=== PATIENT | male | born 1935 | race Native Hawaiian/Other Pacific Islander ===

== ENCOUNTER → 2016-08-15 | Outpatient (CLI) | payer MEDICARE, OTHER | END | disposition home or self-care (01) | LOC: RADPV 12:33 | PROVIDERS: ATTEND Family Medicine | DX: I70.0 Atherosclerosis of aorta (principal) | CPT/HCPCS: 71020 ==

== ENCOUNTER 2017-04-28 22:03 | Inpatient (IN) | payer MEDICARE, OTHER ==
[~2017-04-28] VITALS: Ht 162.6 cm; Wt 70.1 kg
[2017-04-28] MEDS ORDERED: SIMV-260 PO (22:29)
[2017-04-28] MEDS ORDERED: CETI-290 PO (22:29)
[2017-04-28] MEDS ORDERED: MONT10TA21 PO (22:29)
[2017-04-28] MEDS ORDERED: ALBU90AE NEB (22:29)
[2017-04-28] MEDS ORDERED: MELO-107 PO (22:29)
[2017-04-28] MEDS ORDERED: AMLO-511 PO (22:29)
[2017-04-28] MEDS ORDERED: FINA5TAB41 PO (22:29)
[2017-04-28] MEDS ORDERED: COLC0.6T67 PO (22:29)
[2017-04-28] MEDS ORDERED: CARV6 PO (22:29)
[2017-04-28] MEDS ORDERED: ALBUTEROL SULFATE 2.5 MG/0.5 ML NEB SOLUTION NEB ONE (22:45)
[2017-04-28] MEDS ORDERED: IPRATROPIUM BROMIDE 0.5 MG/2.5 ML NEB SOLUTION NEB ONE (22:45)
[2017-04-28 23:15] LABS: BASOPHILS # (AUTO) 0.06 K/uL (0.00-0.20); BASOPHILS % (AUTO) 0.9 % (0.0-2.0); EOSINOPHILS # (AUTO) 0.03 K/uL (0.00-0.70); EOSINOPHILS % (AUTO) 0.52 % (1.0-6.0); HEMATOCRIT 44.2 % (41-53); HEMOGLOBIN 14.6 g/dL (13.5-17.5); LYMPHOCYTES # (AUTO) 1.4 K/uL (1.0-4.8); LYMPHOCYTES % (AUTO) 23.8 % (22.0-44.0); MEAN CORPUSCULAR HEMOGLOBIN 29.7 pg (26.0-34.0); MEAN CORPUSCULAR HGB CONC 33.1 G/dL (31.0-37.0); MEAN CORPUSCULAR VOLUME 90 fL (80-100); MONOCYTES # (AUTO) 0.7 K/uL (0.1-1.0); NEUTROPHILS # (AUTO) 3.8 K/uL (1.8-7.7); NEUTROPHILS % (AUTO) 62.8 % (40.0-70.0); PLATELET COUNT (AUTO) 146 K/uL (150-450); RED BLOOD CELL COUNT(AUTO) 4.93 MIL/uL (4.50-5.90); RED CELL DISTRIBUTION WIDTH 14.4 % (11.5-14.5)
[2017-04-28 23:27] LABS: ANION GAP 8 mmol/L (8-16); CALCIUM, TOTAL 9.1 mg/dL (8.8-10.5); CARBON DIOXIDE 27 mmol/L (22-29); CHLORIDE 99 mmol/L (98-107); CREATININE 0.98 mg/dL (0.60-1.30); GLOMERULAR FILTR. RATE CALC > 60 mL/min (>60); POTASSIUM 5.4 mmol/L (3.5-5.1); SODIUM SERUM 134 mmol/L (136-145); UREA NITROGEN, BLOOD 22 mg/dL (7-18)
[2017-04-28 23:39] LABS: B-TYPE NATRIURETIC PEPTIDE 170 pg/mL (0-100)
[2017-04-28] MEDS ORDERED: BISACODYL 10 MG RECTAL RECTAL SUPPOSITORY PR PRN (23:45)
[2017-04-28] MEDS ORDERED: HYDROCODONE/ACETAMINOPHEN 5-325 MG TABLET PO PRN (23:45)
[2017-04-28] MEDS ORDERED: IPRATROPIUM BROMIDE 0.5 MG/2.5 ML NEB SOLUTION NEB PRN (23:45)
[2017-04-28] MEDS ORDERED: ACETAMINOPHEN 325 MG TABLET PO PRN (23:45)
[2017-04-28] MEDS ORDERED: MAGNESIUM HYDROXIDE SUSPENSION 30 ML UDCUP PO PRN (23:45)
[2017-04-28] MEDS ORDERED: ALBUTEROL SULFATE 2.5 MG/0.5 ML NEB SOLUTION NEB PRN (23:45)
[2017-04-28] MEDS ORDERED: ONDANSETRON HCL 4 MG/2 ML VIAL IVP PRN (23:45)
[2017-04-28] MEDS ORDERED: MORPHINE SULFATE 2 MG/ML SYRINGE IVP PRN (23:45)
[2017-04-28] MEDS ORDERED: ZOLPIDEM TARTRATE 5 MG TABLET PO PRN (23:45)
[2017-04-28 23:53] LABS: ALANINE AMINOTRANSFERASE 56 U/L (12-78); ALBUMIN 3.7 g/dL (3.4-5.0); ASPARTATE AMINOTRANSFERASE 60 U/L (15-37); BILIRUBIN,TOTAL 0.9 mg/dL (0.1-1.0); CREATINE KINASE MB 2.2 ng/mL (0-5); CREATINE KINASE, TOTAL 355 U/L (39-308); TOTAL PROTEIN, SERUM 8.1 g/dL (6.4-8.2)
[2017-04-29] VITALS (7 sets, daily range): BP systolic 109–141; BP diastolic 58–83
[2017-04-29] MEDS ORDERED: ALBUTEROL SULFATE 5 MG/ML 20 ML NEB SOLN [BULK] NEB ONE
[2017-04-29] MEDS ORDERED: SODIUM POLYSTYRENE SULFONATE 15 GM/60 ML SUSPENSION BOTTLE PO ONE
[2017-04-29] MEDS ORDERED: IPRATROPIUM BROMIDE 0.5 MG/2.5 ML NEB SOLUTION NEB ONE
[2017-04-29] MEDS ORDERED: 0.9% SODIUM CHLORIDE 5 ML NEB SOLUTION NEB ONE (00:04)
[2017-04-29] MEDS: IPRATROPIUM BROMIDE 0.5 MG/2.5 ML NEB SOLUTION NEB SCH ×4 (00:10→19:50)
[2017-04-29] MEDS: ALBUTEROL SULFATE 2.5 MG/0.5 ML NEB SOLUTION NEB SCH ×4 (00:10→19:50)
[2017-04-29] MEDS: CefTRIAXone 1 GM/DEXTROSE 50 ML IV SCH ×2 (00:14→23:48)
[2017-04-29] MEDS: MethylPREDNISolone SOD SUCC 125 MG/2 ML VIAL IVP SCH ×5 (00:14→23:49)
[2017-04-29] MEDS: HEPARIN SODIUM,PORCINE 5,000 UNITS/ML VIAL SQ SCH ×4 (00:15→23:49)
[2017-04-29 00:50] LABS: GLUCOSE, URINE (UA) NEGATIVE (NEGATIVE); KETONES,URINE NEGATIVE (NEGATIVE); LEUKOCYTE ESTERASE ,URINE NEGATIVE (NEGATIVE); OCCULT BLOOD,URINE MODERATE (NEGATIVE); PH,URINE 5.5 (5.0-8.0); PROTEIN,URINE POS 1+ (NEGATIVE)
[2017-04-29 00:52] LABS: INFLUENZA TYPE B NEGATIVE FOR TYPE B (NEGATIVE)
[2017-04-29 00:55] LABS: APPEARANCE,URINE HAZY (CLEAR)
[2017-04-29 00:56] LABS: WBC,URINE 0-2 /HPF (0-5)
[2017-04-29] MEDS ORDERED: SODIUM CHLORIDE 0.9% 250 ML IV ONE (01:34)
[2017-04-29] MEDS: AZITHROMYCIN 500 MG/NS 250 ML IV SCH (01:46)
[2017-04-29 06:24] LABS: BASOPHILS % (AUTO) 0.2 % (0.0-2.0); EOSINOPHILS % (AUTO) 0 % (1.0-6.0); HEMATOCRIT 44.7 % (41-53); HEMOGLOBIN 15.1 g/dL (13.5-17.5); LYMPHOCYTES # (AUTO) 1.6 K/uL (1.0-4.8); LYMPHOCYTES % (AUTO) 16.6 % (22.0-44.0); MEAN CORPUSCULAR HEMOGLOBIN 30.3 pg (26.0-34.0); MEAN CORPUSCULAR HGB CONC 33.8 G/dL (31.0-37.0); MEAN CORPUSCULAR VOLUME 89 fL (80-100); MONOCYTES # (AUTO) 0.2 K/uL (0.1-1.0); MONOCYTES % (AUTO) 2.2 % (2.0-9.0); NEUTROPHILS # (AUTO) 7.7 K/uL (1.8-7.7); PLATELET COUNT (AUTO) 153 K/uL (150-450); RED CELL DISTRIBUTION WIDTH 14.5 % (11.5-14.5); WHITE BLOOD COUNT (AUTO) 9.5 K/uL (4.5-11.0)
[2017-04-29 06:52] LABS: ANION GAP 10 mmol/L (8-16); CALCIUM, TOTAL 8.9 mg/dL (8.8-10.5); CARBON DIOXIDE 26 mmol/L (22-29); CHLORIDE 99 mmol/L (98-107); CREATININE 1.04 mg/dL (0.60-1.30); GLOMERULAR FILTR. RATE CALC > 60 mL/min (>60); POTASSIUM 3.8 mmol/L (3.5-5.1); SODIUM SERUM 135 mmol/L (136-145); UREA NITROGEN, BLOOD 18 mg/dL (7-18)
[2017-04-29] MEDS ORDERED: MELOXICAM 7.5 MG TABLET PO SCH (08:00)
[2017-04-29] MEDS: DOCUSATE SODIUM 100 MG CAPSULE PO SCH ×2 (08:28→21:05)
[2017-04-29] MEDS: OXYGEN THERAPY IH SCH ×2 (08:28→19:50)
[2017-04-29] MEDS: PANTOPRAZOLE SODIUM 40 MG DR TABLET PO SCH (08:28)
[2017-04-29] MEDS: BENZONATATE 100 MG CAPSULE PO SCH ×3 (08:29→21:04)
[2017-04-29] MEDS: GuaiFENesin SR 600 MG ER TABLET PO SCH ×2 (08:29→21:03)
[2017-04-29] MEDS ORDERED: CARVEDILOL 6.25 MG TABLET PO SCH (09:00)
[2017-04-29] MEDS ORDERED: COLCHICINE 0.6 MG TABLET PO SCH (09:00)
[2017-04-29] MEDS ORDERED: AmLODIPine BESYLATE 5 MG TABLET PO SCH (09:00)
[2017-04-29] MEDS ORDERED: CETIRIZINE HCL 10 MG TABLET PO SCH (09:00)
[2017-04-29] MEDS ORDERED: FINASTERIDE 5 MG TABLET PO SCH (09:00)
[2017-04-29] MEDS ORDERED: MONTELUKAST SODIUM 10 MG TABLET PO SCH (09:00)
[2017-04-29] MEDS ORDERED: SIMVASTATIN 20 MG TABLET PO SCH (09:00)
[2017-04-29 11:15] LABS: ABG A-A DIFF O2 119.2 mmHg (10-20.0); ABG BASE EXCESS -4.6 mmol/L (-2.0-3.0); ABG HCO3 21.4 mmol/L (22.0-26.0); ABG OXYHEMOGLOBIN 93.7 % (94.0-100.0); ABG PCO2 33 mmHg (35-45); ABG PH 7.402 (7.35-7.450); ALLEN TEST, BLOOD GAS POSITIVE; TEMPERATURE, FAHRENHEIT, BG 98.6 FAHREN (96.0-98.6)
[2017-04-29] MEDS: BUDESONIDE 0.5 MG/2 ML NEB SOLUTION NEB SCH ×2 (11:23→19:50)
[2017-04-29] MEDS: GuaiFENesin/D-METHORPHAN [SUGAR-FREE] 200-20MG/10 ML SYRUP UDCUP PO PRN ×2 (16:36→23:44)
[2017-04-29] MEDS: MONTELUKAST SODIUM 10 MG TABLET PO SCH (21:04)
[2017-04-29] MEDS: SIMVASTATIN 20 MG TABLET PO SCH (21:04)
[2017-04-29] MEDS: MELOXICAM 7.5 MG TABLET PO SCH (21:04)
[2017-04-29] MEDS: FINASTERIDE 5 MG TABLET PO SCH (21:05)
[2017-04-29] MEDS: CETIRIZINE HCL 10 MG TABLET PO SCH (21:05)
[2017-04-29] MEDS: CARVEDILOL 6.25 MG TABLET PO SCH (21:13)
[2017-04-29] MEDS: COLCHICINE 0.6 MG TABLET PO SCH (21:13)
[2017-04-29] MEDS: AmLODIPine BESYLATE 5 MG TABLET PO SCH (23:44)
[2017-04-30 00:07] LABS: GLUCOSE,POINT OF CARE 341 MG/DL (70-110)
[2017-04-30] MEDS: AZITHROMYCIN 500 MG/NS 250 ML IV SCH (01:46)
[2017-04-30] MEDS: ALBUTEROL SULFATE 2.5 MG/0.5 ML NEB SOLUTION NEB SCH ×4 (02:34→20:14)
[2017-04-30] MEDS: IPRATROPIUM BROMIDE 0.5 MG/2.5 ML NEB SOLUTION NEB SCH ×4 (02:34→20:14)
[2017-04-30 04:04] VITALS: BP_SYST 106; BP_SYST 6; BP_DIAS 68
[2017-04-30] MEDS: MethylPREDNISolone SOD SUCC 125 MG/2 ML VIAL IVP SCH ×2 (06:02→12:42)
[2017-04-30 07:12] LABS: BASOPHILS % (AUTO) 0.2 % (0.0-2.0); EOSINOPHILS % (AUTO) 0.1 % (1.0-6.0); HEMATOCRIT 41.5 % (41-53); LYMPHOCYTES # (AUTO) 2.5 K/uL (1.0-4.8); LYMPHOCYTES % (AUTO) 15.7 % (22.0-44.0); MEAN CORPUSCULAR HEMOGLOBIN 30.1 pg (26.0-34.0); MEAN CORPUSCULAR HGB CONC 33.7 G/dL (31.0-37.0); MEAN CORPUSCULAR VOLUME 89 fL (80-100); MONOCYTES # (AUTO) 0.5 K/uL (0.1-1.0); MONOCYTES % (AUTO) 3.4 % (2.0-9.0); NEUTROPHILS # (AUTO) 12.7 K/uL (1.8-7.7); NEUTROPHILS % (AUTO) 80.6 % (40.0-70.0); PLATELET COUNT (AUTO) 152 K/uL (150-450); RED BLOOD CELL COUNT(AUTO) 4.64 MIL/uL (4.50-5.90); RED CELL DISTRIBUTION WIDTH 14.1 % (11.5-14.5); WHITE BLOOD COUNT (AUTO) 15.8 K/uL (4.5-11.0)
[2017-04-30 07:45] VITALS: BP 128/74
[2017-04-30 08:05] LABS: ANION GAP 12 mmol/L (8-16); CALCIUM, TOTAL 8.9 mg/dL (8.8-10.5); CARBON DIOXIDE 25 mmol/L (22-29); CHLORIDE 95 mmol/L (98-107); CREATININE 0.98 mg/dL (0.60-1.30); GLOMERULAR FILTR. RATE CALC > 60 mL/min (>60); POTASSIUM 3.7 mmol/L (3.5-5.1); SODIUM SERUM 132 mmol/L (136-145); UREA NITROGEN, BLOOD 24 mg/dL (7-18)
[2017-04-30] MEDS: HEPARIN SODIUM,PORCINE 5,000 UNITS/ML VIAL SQ SCH ×2 (09:14→15:52)
[2017-04-30] MEDS: BENZONATATE 100 MG CAPSULE PO SCH ×3 (09:16→21:27)
[2017-04-30] MEDS: GuaiFENesin SR 600 MG ER TABLET PO SCH ×2 (09:16→21:20)
[2017-04-30] MEDS: PANTOPRAZOLE SODIUM 40 MG DR TABLET PO SCH (09:16)
[2017-04-30] MEDS: DOCUSATE SODIUM 100 MG CAPSULE PO SCH ×2 (09:16→21:20)
[2017-04-30] MEDS: GuaiFENesin/D-METHORPHAN [SUGAR-FREE] 200-20MG/10 ML SYRUP UDCUP PO PRN (09:17)
[2017-04-30] MEDS: OXYGEN THERAPY IH SCH ×2 (09:18→21:20)
[2017-04-30] MEDS: BUDESONIDE 0.5 MG/2 ML NEB SOLUTION NEB SCH ×2 (09:26→20:17)
[2017-04-30 11:59] VITALS: BP 127/79
[2017-04-30] MEDS ORDERED: AUD NEB (15:42)
[2017-04-30 16:08] VITALS: BP 126/77
[2017-04-30] MEDS: MethylPREDNISolone SOD SUCC 40 MG/ML VIAL IVP SCH (17:51)
[2017-04-30 19:30] VITALS: BP 134/99
[2017-04-30] MEDS: MONTELUKAST SODIUM 10 MG TABLET PO SCH (21:20)
[2017-04-30] MEDS: CARVEDILOL 6.25 MG TABLET PO SCH (21:20)
[2017-04-30] MEDS: AmLODIPine BESYLATE 5 MG TABLET PO SCH (21:20)
[2017-04-30] MEDS: FINASTERIDE 5 MG TABLET PO SCH (21:20)
[2017-04-30] MEDS: CETIRIZINE HCL 10 MG TABLET PO SCH (21:20)
[2017-04-30] MEDS: COLCHICINE 0.6 MG TABLET PO SCH (21:20)
[2017-04-30] MEDS: SIMVASTATIN 20 MG TABLET PO SCH (21:20)
[2017-04-30] MEDS: MELOXICAM 7.5 MG TABLET PO SCH (21:20)
[2017-04-30 23:36] VITALS: BP 148/88
[2017-05-01] MEDS: MethylPREDNISolone SOD SUCC 40 MG/ML VIAL IVP SCH ×4 (00:05→19:16)
[2017-05-01] MEDS: HEPARIN SODIUM,PORCINE 5,000 UNITS/ML VIAL SQ SCH ×3 (00:05→17:05)
[2017-05-01] MEDS: CefTRIAXone 1 GM/DEXTROSE 50 ML IV SCH (00:05)
[2017-05-01] MEDS: IPRATROPIUM BROMIDE 0.5 MG/2.5 ML NEB SOLUTION NEB SCH ×4 (02:00→22:37)
[2017-05-01] MEDS: ALBUTEROL SULFATE 2.5 MG/0.5 ML NEB SOLUTION NEB SCH ×4 (02:00→22:37)
[2017-05-01] MEDS: AZITHROMYCIN 500 MG/NS 250 ML IV SCH (02:05)
[2017-05-01] MEDS: GuaiFENesin/D-METHORPHAN [SUGAR-FREE] 200-20MG/10 ML SYRUP UDCUP PO PRN (02:05)
[2017-05-01 05:34] VITALS: BP 137/79
[2017-05-01 07:17] VITALS: BP 128/76
[2017-05-01 07:28] LABS: BASOPHILS # (AUTO) 0.02 K/uL (0.00-0.20); BASOPHILS % (AUTO) 0.1 % (0.0-2.0); EOSINOPHILS % (AUTO) 0 % (1.0-6.0); HEMATOCRIT 42.8 % (41-53); HEMOGLOBIN 14.2 g/dL (13.5-17.5); LYMPHOCYTES # (AUTO) 1.4 K/uL (1.0-4.8); LYMPHOCYTES % (AUTO) 8.5 % (22.0-44.0); MEAN CORPUSCULAR HEMOGLOBIN 29.7 pg (26.0-34.0); MEAN CORPUSCULAR HGB CONC 33.2 G/dL (31.0-37.0); MEAN CORPUSCULAR VOLUME 89 fL (80-100); MONOCYTES # (AUTO) 0.7 K/uL (0.1-1.0); MONOCYTES % (AUTO) 4.1 % (2.0-9.0); NEUTROPHILS # (AUTO) 14.3 K/uL (1.8-7.7); PLATELET COUNT (AUTO) 166 K/uL (150-450); RED BLOOD CELL COUNT(AUTO) 4.79 MIL/uL (4.50-5.90); WHITE BLOOD COUNT (AUTO) 16.4 K/uL (4.5-11.0)
[2017-05-01 07:29] LABS: NEUTROPHILS % (AUTO) 87.3 % (40.0-70.0); RBC MORPHOLOGY COMMENT NORMAL RBC MORPH
[2017-05-01 07:48] LABS: ANION GAP 10 mmol/L (8-16); CALCIUM, TOTAL 8.8 mg/dL (8.8-10.5); CARBON DIOXIDE 26 mmol/L (22-29); CHLORIDE 93 mmol/L (98-107); CREATININE 0.83 mg/dL (0.60-1.30); GLOMERULAR FILTR. RATE CALC > 60 mL/min (>60); POTASSIUM 4.1 mmol/L (3.5-5.1); SODIUM SERUM 129 mmol/L (136-145); UREA NITROGEN, BLOOD 19 mg/dL (7-18)
[2017-05-01] MEDS: BUDESONIDE 0.5 MG/2 ML NEB SOLUTION NEB SCH ×2 (08:46→22:37)
[2017-05-01] MEDS: PANTOPRAZOLE SODIUM 40 MG DR TABLET PO SCH (09:10)
[2017-05-01] MEDS: DOCUSATE SODIUM 100 MG CAPSULE PO SCH ×2 (09:10→20:39)
[2017-05-01] MEDS: GuaiFENesin SR 600 MG ER TABLET PO SCH ×2 (09:11→20:39)
[2017-05-01] MEDS: OXYGEN THERAPY IH SCH ×2 (09:11→20:39)
[2017-05-01] MEDS: BENZONATATE 100 MG CAPSULE PO SCH ×3 (09:11→20:39)
[2017-05-01 11:59] VITALS: BP 128/71
[2017-05-01] MEDS: HYDROCODONE/CHLORPHEN POLIS 10-8 MG/5 ML ORAL.SYG PO PRN (13:07)
[2017-05-01 16:35] VITALS: BP 124/76
[2017-05-01 19:44] VITALS: BP 148/95
[2017-05-01] MEDS: COLCHICINE 0.6 MG TABLET PO SCH (20:38)
[2017-05-01] MEDS: MELOXICAM 7.5 MG TABLET PO SCH (20:38)
[2017-05-01] MEDS: MONTELUKAST SODIUM 10 MG TABLET PO SCH (20:38)
[2017-05-01] MEDS: AmLODIPine BESYLATE 5 MG TABLET PO SCH (20:39)
[2017-05-01] MEDS: CETIRIZINE HCL 10 MG TABLET PO SCH (20:39)
[2017-05-01] MEDS: FINASTERIDE 5 MG TABLET PO SCH (20:39)
[2017-05-01] MEDS: SIMVASTATIN 20 MG TABLET PO SCH (20:39)
[2017-05-01] MEDS: CARVEDILOL 6.25 MG TABLET PO SCH (20:39)
[2017-05-02] MEDS: CefTRIAXone 1 GM/DEXTROSE 50 ML IV SCH (00:14)
[2017-05-02] MEDS: HEPARIN SODIUM,PORCINE 5,000 UNITS/ML VIAL SQ SCH ×2 (00:14→08:31)
[2017-05-02] MEDS: MethylPREDNISolone SOD SUCC 40 MG/ML VIAL IVP SCH ×3 (00:15→12:18)
[2017-05-02 00:35] VITALS: BP 149/98
[2017-05-02] MEDS: AZITHROMYCIN 500 MG/NS 250 ML IV SCH (01:53)
[2017-05-02] MEDS: ALBUTEROL SULFATE 2.5 MG/0.5 ML NEB SOLUTION NEB SCH ×3 (02:34→13:56)
[2017-05-02] MEDS: IPRATROPIUM BROMIDE 0.5 MG/2.5 ML NEB SOLUTION NEB SCH ×3 (02:34→13:56)
[2017-05-02 04:49] VITALS: BP 157/85
[2017-05-02 06:47] LABS: HEMATOCRIT 46.2 % (41-53); HEMOGLOBIN 15.2 g/dL (13.5-17.5); MEAN CORPUSCULAR HEMOGLOBIN 29.6 pg (26.0-34.0); MEAN CORPUSCULAR VOLUME 90 fL (80-100); PLATELET COUNT (AUTO) 188 K/uL (150-450); RED BLOOD CELL COUNT(AUTO) 5.14 MIL/uL (4.50-5.90); RED CELL DISTRIBUTION WIDTH 14.4 % (11.5-14.5); WHITE BLOOD COUNT (AUTO) 12.6 K/uL (4.5-11.0)
[2017-05-02 07:23] LABS: ANION GAP 9 mmol/L (8-16); CALCIUM, TOTAL 8.7 mg/dL (8.8-10.5); CARBON DIOXIDE 29 mmol/L (22-29); CHLORIDE 96 mmol/L (98-107); CREATININE 1.07 mg/dL (0.60-1.30); GLOMERULAR FILTR. RATE CALC > 60 mL/min (>60); POTASSIUM 4.1 mmol/L (3.5-5.1); SODIUM SERUM 134 mmol/L (136-145); UREA NITROGEN, BLOOD 19 mg/dL (7-18)
[2017-05-02] MEDS: BUDESONIDE 0.5 MG/2 ML NEB SOLUTION NEB SCH (07:59)
[2017-05-02 08:08] VITALS: BP 146/82
[2017-05-02] MEDS: HYDROCODONE/CHLORPHEN POLIS 10-8 MG/5 ML ORAL.SYG PO PRN ×2 (08:31→16:21)
[2017-05-02] MEDS: BENZONATATE 100 MG CAPSULE PO SCH ×2 (08:31→16:21)
[2017-05-02] MEDS: OXYGEN THERAPY IH SCH (08:31)
[2017-05-02] MEDS: PANTOPRAZOLE SODIUM 40 MG DR TABLET PO SCH (08:31)
[2017-05-02] MEDS: GuaiFENesin SR 600 MG ER TABLET PO SCH (08:31)
[2017-05-02] MEDS: DOCUSATE SODIUM 100 MG CAPSULE PO SCH (08:31)
[2017-05-02 08:58] LABS: BAND NEUTROPHILS % (MANUAL) 15 % (1-5); LYMPHOCYTES % (MANUAL) 12 % (22-44); TOTAL CELLS COUNTED 100
[2017-05-02 08:59] LABS: RBC MORPHOLOGY COMMENT NORMAL RBC MORPH
[2017-05-02 11:45] VITALS: BP 142/80
[2017-05-02] MEDS ORDERED: BENZ-51 PO (14:16)
[2017-05-02] MEDS ORDERED: PRED10 PO (14:18)
[2017-05-02] MEDS ORDERED: PRED20 PO (14:18)
[2017-05-02] MEDS ORDERED: PANT40TA25 PO (14:19)
[2017-05-02] MEDS ORDERED: PRED5 PO (14:19)
[2017-05-02] MEDS ORDERED: TUSSI5L PO (14:21)
[2017-05-02] MEDS ORDERED: LEVO750T21 PO (16:03)
== END 2017-05-02 16:45 | disposition home or self-care (01) | DRG 189 ==
LOC: EMS 22:06 → 5N 23:45
PROVIDERS: ADMIT Internal Medicine; ATTEND Internal Medicine
DX: J96.20 Acute and chronic respiratory failure, unspecified whether with hypoxia or hypercapnia (principal); J18.9 Pneumonia, unspecified organism; J44.0 Chronic obstructive pulmonary disease with (acute) lower respiratory infection; E87.5 Hyperkalemia; I11.0 Hypertensive heart disease with heart failure; J45.901 Unspecified asthma with (acute) exacerbation; I50.9 Heart failure, unspecified; E87.1 Hypo-osmolality and hyponatremia; J44.1 Chronic obstructive pulmonary disease with (acute) exacerbation; E03.9 Hypothyroidism, unspecified; E87.6 Hypokalemia; N40.0 Benign prostatic hyperplasia without lower urinary tract symptoms; E78.5 Hyperlipidemia, unspecified; M10.9 Gout, unspecified; Z88.8 Allergy status to other drugs, medicaments and biological substances; Z82.49 Family history of ischemic heart disease and other diseases of the circulatory system; Z87.891 Personal history of nicotine dependence
CPT/HCPCS: 71250; 82805; 82962; 87040; 87804; 93005; 94640; 94644; 99285; J0456; J0696; J1644; J2920; J2930; J7050

== ENCOUNTER 2017-07-07 10:15 | Inpatient (IN) | payer MEDICARE, OTHER ==
[~2017-07-07] VITALS: Ht 162.6 cm; Wt 69.8 kg
[~2017-07-07 10:15] MED LIST: AMLO-511 PO; AUD NEB; BENZ-51 PO; CARV6 PO; CETI-290 PO; COLC0.6T67 PO; FINA5TAB41 PO; LEVO750T21 PO; MELO-107 PO; MONT10TA21 PO; PANT40TA25 PO; PRED10 PO; PRED20 PO; PRED5 PO; SIMV-260 PO; TUSSI5L PO
[2017-07-07 11:04] LABS: BASOPHILS % (AUTO) 0.8 % (0.0-2.0); EOSINOPHILS % (AUTO) 4.7 % (1.0-6.0); HEMATOCRIT 44.2 % (41-53); HEMOGLOBIN 14.9 g/dL (13.5-17.5); LYMPHOCYTES % (AUTO) 17.2 % (22.0-44.0); MEAN CORPUSCULAR HEMOGLOBIN 30.1 pg (26.0-34.0); MEAN CORPUSCULAR HGB CONC 33.7 G/dL (31.0-37.0); MEAN CORPUSCULAR VOLUME 89 fL (80-100); MONOCYTES # (AUTO) 0.8 K/uL (0.1-1.0); NEUTROPHILS # (AUTO) 8.2 K/uL (1.8-7.7); NEUTROPHILS % (AUTO) 70.3 % (40.0-70.0); PLATELET COUNT (AUTO) 237 K/uL (150-450); RED BLOOD CELL COUNT(AUTO) 4.94 MIL/uL (4.50-5.90); RED CELL DISTRIBUTION WIDTH 14.6 % (11.5-14.5)
[2017-07-07 11:15] LABS: PROTHROMBIN TIME 10.7 SEC (9.4-11.6)
[2017-07-07 11:17] LABS: ANION GAP 10 mmol/L (8-16); CALCIUM, TOTAL 9.6 mg/dL (8.8-10.5); CARBON DIOXIDE 30 mmol/L (22-29); CHLORIDE 104 mmol/L (98-107); CREATININE 0.91 mg/dL (0.60-1.30); GLOMERULAR FILTR. RATE CALC > 60 mL/min (>60); GLUCOSE,RANDOM 148 mg/dL (70-110); POTASSIUM 4.2 mmol/L (3.5-5.1); SODIUM SERUM 144 mmol/L (136-145); UREA NITROGEN, BLOOD 13 mg/dL (7-18)
[2017-07-07 11:22] LABS: B-TYPE NATRIURETIC PEPTIDE 39 pg/mL (0-100)
[2017-07-07 11:24] LABS: ALANINE AMINOTRANSFERASE 46 U/L (12-78); ALBUMIN 3.8 g/dL (3.4-5.0); ALKALINE PHOSPHATASE 83 U/L (46-116); ASPARTATE AMINOTRANSFERASE 25 U/L (15-37); BILIRUBIN,TOTAL 0.8 mg/dL (0.1-1.0); TOTAL PROTEIN, SERUM 7.5 g/dL (6.4-8.2); URIC ACID 8.4 mg/dL (2.6-7.2)
[2017-07-07] MEDS ORDERED: IPRATROPIUM BROMIDE 0.5 MG/2.5 ML NEB SOLUTION NEB ONE (13:06)
[2017-07-07] MEDS ORDERED: ALBUTEROL SULFATE 2.5 MG/0.5 ML NEB SOLUTION NEB PRN (13:45)
[2017-07-07] MEDS ORDERED: MAGNESIUM HYDROXIDE SUSPENSION 30 ML UDCUP PO PRN (13:45)
[2017-07-07] MEDS ORDERED: ACETAMINOPHEN 325 MG TABLET PO PRN (13:45)
[2017-07-07] MEDS ORDERED: IPRATROPIUM BROMIDE 0.5 MG/2.5 ML NEB SOLUTION NEB PRN (13:45)
[2017-07-07 14:33] VITALS: BP 122/93
[2017-07-07] MEDS: ASPIRIN 81 MG CHEWABLE TABLET PO SCH (15:12)
[2017-07-07] MEDS: INDOMETHACIN 25 MG CAPSULE PO PRN (15:12)
[2017-07-07] MEDS: HEPARIN SODIUM,PORCINE 5,000 UNITS/ML VIAL SQ SCH ×2 (15:25→23:23)
[2017-07-07 19:23] VITALS: BP 148/73
[2017-07-07] MEDS: COLCHICINE 0.6 MG TABLET PO SCH (20:14)
[2017-07-07] MEDS: ATORVASTATIN CALCIUM 20 MG TABLET PO SCH (20:14)
[2017-07-07] MEDS: DOCUSATE SODIUM 100 MG CAPSULE PO SCH (20:14)
[2017-07-07 23:24] VITALS: BP 108/65
[2017-07-08 00:39] LABS: APPEARANCE,URINE CLEAR (CLEAR); BILIRUBIN,URINE NEGATIVE (NEGATIVE); GLUCOSE, URINE (UA) 250 mg/dL (NEGATIVE); KETONES,URINE NEGATIVE (NEGATIVE); LEUKOCYTE ESTERASE ,URINE NEGATIVE (NEGATIVE); NITRATE,URINE NEGATIVE (NEGATIVE); OCCULT BLOOD,URINE NEGATIVE (NEGATIVE); PH,URINE 5.5 (5.0-8.0); PROTEIN,URINE NEGATIVE (NEGATIVE); UROBILINOGEN,URINE 0.2 mg/dL (<=1.0)
[2017-07-08 00:53] LABS: BACTERIA,URINE Few /HPF (None Seen); MUCUS,URINE Few LPF (None Seen); RBC,URINE 0-2 /HPF (0-2); SQUAMOUS EPITHELIAL CELL,UR Rare /LPF (None Seen); WBC,URINE 0-2 /HPF (0-5)
[2017-07-08 04:47] VITALS: BP 137/91
[2017-07-08 07:33] VITALS: BP 134/78
[2017-07-08] MEDS: DOCUSATE SODIUM 100 MG CAPSULE PO SCH ×2 (09:00→20:49)
[2017-07-08] MEDS: HEPARIN SODIUM,PORCINE 5,000 UNITS/ML VIAL SQ SCH ×3 (09:06→23:00)
[2017-07-08] MEDS: ASPIRIN 81 MG CHEWABLE TABLET PO SCH (09:07)
[2017-07-08] MEDS: INDOMETHACIN 25 MG CAPSULE PO PRN ×2 (09:07→19:48)
[2017-07-08] MEDS ORDERED: ALBUTEROL SULFATE 2.5 MG/0.5 ML NEB SOLUTION NEB PRN (09:30)
[2017-07-08] MEDS: IPRATROPIUM BROMIDE 0.5 MG/2.5 ML NEB SOLUTION NEB SCH ×4 (09:32→22:47)
[2017-07-08 10:58] VITALS: BP 121/73
[2017-07-08] MEDS ORDERED: IPRATROPIUM BROMIDE 0.5 MG/2.5 ML NEB SOLUTION NEB SCH (11:00)
[2017-07-08] MEDS: ALBUTEROL SULFATE 2.5 MG/0.5 ML NEB SOLUTION NEB SCH ×4 (11:00→22:47)
[2017-07-08 15:26] VITALS: BP 115/64
[2017-07-08 19:43] VITALS: BP 148/62
[2017-07-08] MEDS: ATORVASTATIN CALCIUM 20 MG TABLET PO SCH (20:47)
[2017-07-08] MEDS: COLCHICINE 0.6 MG TABLET PO SCH (20:47)
[2017-07-08 23:37] VITALS: BP 140/77
[2017-07-09] MEDS: IPRATROPIUM BROMIDE 0.5 MG/2.5 ML NEB SOLUTION NEB SCH ×3 (03:00→11:00)
[2017-07-09] MEDS: ALBUTEROL SULFATE 2.5 MG/0.5 ML NEB SOLUTION NEB SCH ×3 (03:00→11:00)
[2017-07-09 05:36] VITALS: BP 125/69
[2017-07-09 06:43] LABS: BASOPHILS % (AUTO) 0.6 % (0.0-2.0); EOSINOPHILS % (AUTO) 3.7 % (1.0-6.0); HEMATOCRIT 41.2 % (41-53); HEMOGLOBIN 14.1 g/dL (13.5-17.5); LYMPHOCYTES # (AUTO) 2.1 K/uL (1.0-4.8); MEAN CORPUSCULAR HEMOGLOBIN 30.2 pg (26.0-34.0); MEAN CORPUSCULAR HGB CONC 34.2 G/dL (31.0-37.0); MEAN CORPUSCULAR VOLUME 89 fL (80-100); MONOCYTES % (AUTO) 9.7 % (2.0-9.0); NEUTROPHILS # (AUTO) 7.1 K/uL (1.8-7.7); PLATELET COUNT (AUTO) 221 K/uL (150-450); RED BLOOD CELL COUNT(AUTO) 4.65 MIL/uL (4.50-5.90); RED CELL DISTRIBUTION WIDTH 14.2 % (11.5-14.5)
[2017-07-09 07:17] LABS: ANION GAP 8 mmol/L (8-16); CARBON DIOXIDE 28 mmol/L (22-29); CHLORIDE 100 mmol/L (98-107); CREATININE 0.79 mg/dL (0.60-1.30); GLOMERULAR FILTR. RATE CALC > 60 mL/min (>60); GLUCOSE,RANDOM 109 mg/dL (70-110); POTASSIUM 3.7 mmol/L (3.5-5.1); SODIUM SERUM 136 mmol/L (136-145); UREA NITROGEN, BLOOD 16 mg/dL (7-18)
[2017-07-09 07:46] VITALS: BP 97/73
[2017-07-09] MEDS: HEPARIN SODIUM,PORCINE 5,000 UNITS/ML VIAL SQ SCH (08:07)
[2017-07-09] MEDS: DOCUSATE SODIUM 100 MG CAPSULE PO SCH ×2 (08:07→08:08)
[2017-07-09] MEDS: ASPIRIN 81 MG CHEWABLE TABLET PO SCH (08:07)
[2017-07-09] MEDS: INDOMETHACIN 25 MG CAPSULE PO PRN (08:07)
[2017-07-09 11:33] VITALS: BP 128/64
== END 2017-07-09 14:00 | disposition home or self-care (01) | DRG 69 ==
LOC: EMS 10:20 → 5N 12:20
PROVIDERS: ADMIT Internal Medicine; ATTEND Internal Medicine
DX: G45.9 Transient cerebral ischemic attack, unspecified (principal); G93.40 Encephalopathy, unspecified; J44.9 Chronic obstructive pulmonary disease, unspecified; I11.0 Hypertensive heart disease with heart failure; I50.9 Heart failure, unspecified; E78.00 Pure hypercholesterolemia, unspecified; I25.10 Atherosclerotic heart disease of native coronary artery without angina pectoris; R53.81 Other malaise; M10.9 Gout, unspecified; N40.0 Benign prostatic hyperplasia without lower urinary tract symptoms; Z88.8 Allergy status to other drugs, medicaments and biological substances; Z79.899 Other long term (current) drug therapy
CPT/HCPCS: 70450; 84550; 93005; 93306; 93880; 94640; 97161; 99285; J1644

== ENCOUNTER → 2017-08-11 | Outpatient (CLI) | payer MEDICARE, OTHER ==
[~2017-08-11] VITALS: Ht 160 cm; Wt 69.0 kg
[~2017-08-11] MED LIST changes: -BENZ-51 PO; -LEVO750T21 PO; -PANT40TA25 PO; -PRED10 PO; -PRED20 PO; -PRED5 PO; -TUSSI5L PO
[2017-08-11 10:15] VITALS: BP 106/68
== END | disposition home or self-care (01) ==
LOC: SRCNTR 10:11
PROVIDERS: ATTEND Internal Medicine Cardiovascular Disease
DX: I10 Essential (primary) hypertension (principal); I45.10 Unspecified right bundle-branch block; E78.5 Hyperlipidemia, unspecified; J44.9 Chronic obstructive pulmonary disease, unspecified; Z86.73 Personal history of transient ischemic attack (TIA), and cerebral infarction without residual deficits
CPT/HCPCS: 93005; G0463

== ENCOUNTER → 2018-01-12 | Outpatient (CLI) | payer MEDICARE, OTHER | END | disposition home or self-care (01) | LOC: RADPV 12:44 | PROVIDERS: ATTEND Family Medicine | DX: J44.9 Chronic obstructive pulmonary disease, unspecified (principal); E78.00 Pure hypercholesterolemia, unspecified; I10 Essential (primary) hypertension ==

== ENCOUNTER → 2018-03-30 | Outpatient (CLI) | payer MEDICARE, OTHER ==
[~2018-03-30] VITALS: Ht 160 cm; Wt 73.0 kg
[2018-03-30 11:51] VITALS: BP 129/62
== END | disposition home or self-care (01) ==
LOC: SRCNTR 11:23
PROVIDERS: ATTEND Internal Medicine Cardiovascular Disease
DX: J44.9 Chronic obstructive pulmonary disease, unspecified (principal); E78.5 Hyperlipidemia, unspecified; I10 Essential (primary) hypertension; Z86.73 Personal history of transient ischemic attack (TIA), and cerebral infarction without residual deficits
CPT/HCPCS: G0463

== ENCOUNTER → 2018-06-27 | Outpatient (CLI) | payer MEDICARE, OTHER ==
[~2018-06-27] VITALS: Ht 160 cm; Wt 71.0 kg
[~2018-06-27] MED LIST changes: +CETI-170 PO; -CETI-290 PO
[2018-06-27 11:42] VITALS: BP 148/76
== END | disposition home or self-care (01) ==
LOC: SRCNTR 10:54
PROVIDERS: ATTEND Internal Medicine Cardiovascular Disease
DX: E78.5 Hyperlipidemia, unspecified (principal); I10 Essential (primary) hypertension; J44.9 Chronic obstructive pulmonary disease, unspecified
CPT/HCPCS: G0463

== ENCOUNTER → 2018-08-22 | Outpatient (CLI) | payer MEDICARE, OTHER ==
[~2018-08-22] VITALS: Ht 160 cm; Wt 71.5 kg
[~2018-08-22] MED LIST changes: -CETI-170 PO; +CETI10TA59 PO; +GABA-531 PO
[2018-08-22 11:00] VITALS: BP 110/65
== END | disposition home or self-care (01) ==
LOC: SRCNTR 10:50
PROVIDERS: ATTEND Internal Medicine Cardiovascular Disease
DX: E78.5 Hyperlipidemia, unspecified (principal); M19.90 Unspecified osteoarthritis, unspecified site; I10 Essential (primary) hypertension; J44.9 Chronic obstructive pulmonary disease, unspecified; I42.9 Cardiomyopathy, unspecified
CPT/HCPCS: G0463

== ENCOUNTER 2019-04-08 13:22 | Emergency (ER) | payer MEDICARE, OTHER ==
[~2019-04-08] VITALS: Ht 162.6 cm; Wt 69.3 kg
[~2019-04-08 13:22] MED LIST changes: -AMLO-511 PO; +AMLO5TAB9 PO; -COLC0.6T67 PO; +COLC0.6T73 PO
[2019-04-08 15:18] LABS: BASOPHILS % (AUTO) 0.6 % (0.0-2.0); EOSINOPHILS % (AUTO) 0.9 % (1.0-6.0); HEMATOCRIT 43.7 % (41-53); HEMOGLOBIN 14.4 g/dL (13.5-17.5); LYMPHOCYTES # (AUTO) 1.6 K/uL (1.0-4.8); LYMPHOCYTES % (AUTO) 14.9 % (22.0-44.0); MEAN CORPUSCULAR HEMOGLOBIN 29.5 pg (26.0-34.0); MEAN CORPUSCULAR VOLUME 89 fL (80-100); MONOCYTES # (AUTO) 1.2 K/uL (0.1-1.0); MONOCYTES % (AUTO) 10.6 % (2.0-9.0); NEUTROPHILS # (AUTO) 7.9 K/uL (1.8-7.7); PLATELET COUNT (AUTO) 428 K/uL (150-450); RED BLOOD CELL COUNT(AUTO) 4.89 MIL/uL (4.50-5.90); RED CELL DISTRIBUTION WIDTH 14.1 % (11.5-14.5)
[2019-04-08 15:40] LABS: ANION GAP 9 mmol/L (8-16); CALCIUM, TOTAL 9.2 mg/dL (8.8-10.5); CARBON DIOXIDE 29 mmol/L (22-29); CHLORIDE 98 mmol/L (98-107); CREATININE 0.88 mg/dL (0.60-1.30); GLUCOSE,RANDOM 172 mg/dL (70-110); SODIUM SERUM 136 mmol/L (136-145); UREA NITROGEN, BLOOD 14 mg/dL (7-18)
[2019-04-08 15:41] LABS: GLOMERULAR FILTR. RATE CALC > 60 mL/min (>60)
[2019-04-08 15:51] LABS: ALANINE AMINOTRANSFERASE 96 U/L (12-78); ALBUMIN 2.9 g/dL (3.4-5.0); ALKALINE PHOSPHATASE 141 U/L (46-116); ASPARTATE AMINOTRANSFERASE 40 U/L (15-37); BILIRUBIN,TOTAL 0.6 mg/dL (0.1-1.0); C-REACTIVE PROTEIN QUANT 7.62 mg/dL (0.00-0.30); TOTAL PROTEIN, SERUM 7.5 g/dL (6.4-8.2)
[2019-04-08 16:18] LABS: URIC ACID 5.8 mg/dL (2.6-7.2)
[2019-04-08] MEDS ORDERED: ONDANSETRON HCL 4 MG/2 ML VIAL IVP ONE (17:30)
[2019-04-08] MEDS ORDERED: MORPHINE SULFATE 4 MG/ML SYRINGE IVP ONE (17:30)
[2019-04-08] MEDS ORDERED: DEXAMETHASONE SOD PHOS 4 MG/ML 5 ML VIAL IVP ONE (17:30)
[2019-04-08 17:51] LABS: APPEARANCE,URINE CLEAR (CLEAR); BILIRUBIN,URINE NEGATIVE (NEGATIVE); GLUCOSE, URINE (UA) 500 mg/dL (NEGATIVE); KETONES,URINE NEGATIVE (NEGATIVE); LEUKOCYTE ESTERASE ,URINE NEGATIVE (NEGATIVE); NITRATE,URINE NEGATIVE (NEGATIVE); OCCULT BLOOD,URINE NEGATIVE (NEGATIVE); PH,URINE 5.5 (5.0-8.0); PROTEIN,URINE TRACE (NEGATIVE)
[2019-04-08 18:28] LABS: BACTERIA,URINE None Seen /HPF (None Seen); RBC,URINE None Seen /HPF (0-2); SQUAMOUS EPITHELIAL CELL,UR None Seen /LPF (None Seen); WBC,URINE 0-2 /HPF (0-5)
[2019-04-08] MEDS ORDERED: CeFAZolin 1 GM/DEXTROSE 50 ML IV ONE (19:15)
[2019-04-08 20:26] VITALS: BP 122/81
== END 2019-04-08 20:46 | disposition home or self-care (01) ==
LOC: EMS 13:22
DX: M10.9 Gout, unspecified (principal); M79.602 Pain in left arm; M79.89 Other specified soft tissue disorders; I11.0 Hypertensive heart disease with heart failure; I50.9 Heart failure, unspecified; J45.909 Unspecified asthma, uncomplicated; E78.00 Pure hypercholesterolemia, unspecified; F17.210 Nicotine dependence, cigarettes, uncomplicated; Z88.8 Allergy status to other drugs, medicaments and biological substances
CPT/HCPCS: 36415; 71045; 80053; 81001; 84550; 85025; 86140; 96365; 96375; 99284; J0690; J1100; J2270; J2405

== ENCOUNTER 2019-08-06 12:19 | Emergency (ER) | payer MEDICARE, OTHER ==
[~2019-08-06] VITALS: Ht 165.1 cm; Wt 64.5 kg
[~2019-08-06 12:19] MED LIST changes: +FINA-27 PO; -FINA5TAB41 PO
[2019-08-06] MEDS ORDERED: PERTUSS(ACELL),DIPH,TET VAC/PF 0.5 ML VIAL IM ONE (14:30)
[2019-08-06 15:14] LABS: BASOPHILS % (AUTO) 1.4 % (0.0-2.0); EOSINOPHILS % (AUTO) 1.4 % (1.0-6.0); HEMOGLOBIN 15.5 g/dL (13.5-17.5); LYMPHOCYTES # (AUTO) 2.6 K/uL (1.0-4.8); LYMPHOCYTES % (AUTO) 30.6 % (22.0-44.0); MEAN CORPUSCULAR HEMOGLOBIN 29.7 pg (26.0-34.0); MEAN CORPUSCULAR VOLUME 90 fL (80-100); MONOCYTES # (AUTO) 0.6 K/uL (0.1-1.0); MONOCYTES % (AUTO) 6.7 % (2.0-9.0); NEUTROPHILS # (AUTO) 5.1 K/uL (1.8-7.7); NEUTROPHILS % (AUTO) 59.9 % (40.0-70.0); PLATELET COUNT (AUTO) 294 K/uL (150-450); RED CELL DISTRIBUTION WIDTH 15.4 % (11.5-14.5)
[2019-08-06 15:31] LABS: APPEARANCE,URINE CLEAR (CLEAR); BILIRUBIN,URINE NEGATIVE (NEGATIVE); GLUCOSE, URINE (UA) NEGATIVE (NEGATIVE); KETONES,URINE NEGATIVE (NEGATIVE); LEUKOCYTE ESTERASE ,URINE NEGATIVE (NEGATIVE); NITRATE,URINE NEGATIVE (NEGATIVE); OCCULT BLOOD,URINE NEGATIVE (NEGATIVE); PH,URINE 7.5 (5.0-8.0); PROTEIN,URINE NEGATIVE (NEGATIVE); UROBILINOGEN,URINE 0.2 mg/dL (<=1.0)
[2019-08-06 15:31] LABS: ANION GAP 6 mmol/L (8-16); CALCIUM, TOTAL 10.1 mg/dL (8.8-10.5); CARBON DIOXIDE 33 mmol/L (22-29); CHLORIDE 101 mmol/L (98-107); GLUCOSE,RANDOM 111 mg/dL (70-110); POTASSIUM 4.2 mmol/L (3.5-5.1); SODIUM SERUM 140 mmol/L (136-145); UREA NITROGEN, BLOOD 11 mg/dL (7-18)
[2019-08-06 15:32] LABS: GLOMERULAR FILTR. RATE CALC > 60 mL/min (>60)
[2019-08-06 15:39] LABS: ALANINE AMINOTRANSFERASE 53 U/L (12-78); ALBUMIN 4.3 g/dL (3.4-5.0); ALKALINE PHOSPHATASE 91 U/L (46-116); ASPARTATE AMINOTRANSFERASE 34 U/L (15-37); BILIRUBIN,TOTAL 0.5 mg/dL (0.1-1.0); THYROID STIMULATING HORMONE 1.62 uIU/mL (0.36-3.74); TOTAL PROTEIN, SERUM 8.4 g/dL (6.4-8.2)
[2019-08-06 15:42] LABS: BACTERIA,URINE None Seen /HPF (None Seen); RBC,URINE None Seen /HPF (0-2); SQUAMOUS EPITHELIAL CELL,UR Rare /LPF (None Seen); WBC,URINE None Seen /HPF (0-5)
[2019-08-06 16:00] VITALS: BP 130/74
[2019-08-06] MEDS ORDERED: LIDOCAINE 1%/EPI 1:200,000/PF 10 ML VIAL INJ ONE (16:15)
== END 2019-08-06 16:56 | disposition home or self-care (01) ==
LOC: EMS 12:20
DX: S01.01XA Laceration without foreign body of scalp, initial encounter (principal); I11.0 Hypertensive heart disease with heart failure; I50.9 Heart failure, unspecified; J45.909 Unspecified asthma, uncomplicated; E78.00 Pure hypercholesterolemia, unspecified; F17.210 Nicotine dependence, cigarettes, uncomplicated; Z88.8 Allergy status to other drugs, medicaments and biological substances; W45.8XXA Other foreign body or object entering through skin, initial encounter; Y93.89 Activity, other specified; Y92.89 Other specified places as the place of occurrence of the external cause; Y99.8 Other external cause status
CPT/HCPCS: 12002; 36415; 70450; 80053; 81001; 84443; 84484; 85025; 90471; 90715; 93005; 99285; J3490

== ENCOUNTER → 2019-08-16 | Outpatient (CLI) | payer MEDICARE, OTHER ==
[~2019-08-16] VITALS: Ht 160 cm; Wt 67.0 kg
[2019-08-16 10:59] VITALS: BP 142/77
== END | disposition home or self-care (01) ==
LOC: SRCNTR 08:40
PROVIDERS: ATTEND Internal Medicine Cardiovascular Disease
DX: J44.9 Chronic obstructive pulmonary disease, unspecified (principal); I10 Essential (primary) hypertension; I42.9 Cardiomyopathy, unspecified; E78.5 Hyperlipidemia, unspecified
CPT/HCPCS: G0463

== ENCOUNTER → 2020-01-23 | Outpatient (CLI) | payer MEDICARE, OTHER ==
[~2020-01-23] MED LIST changes: +AMLO-257 PO; -AMLO5TAB9 PO; +CETI-450 PO; -CETI10TA59 PO; +GABA-1181 PO; -GABA-531 PO
== END | disposition home or self-care (01) ==
LOC: SRCNTR 15:20
PROVIDERS: ATTEND Internal Medicine Cardiovascular Disease
DX: I10 Essential (primary) hypertension (principal); J44.9 Chronic obstructive pulmonary disease, unspecified; E78.5 Hyperlipidemia, unspecified; M19.90 Unspecified osteoarthritis, unspecified site; Z79.899 Other long term (current) drug therapy; Z88.8 Allergy status to other drugs, medicaments and biological substances
CPT/HCPCS: Q3014

== ENCOUNTER → 2020-07-15 | Outpatient (CLI) | payer MEDICARE, OTHER ==
[~2020-07-15] MED LIST changes: +MONT-35 PO; -MONT10TA21 PO
== END | disposition home or self-care (01) ==
LOC: SRCNTR 11:22
PROVIDERS: ATTEND Internal Medicine Cardiovascular Disease
DX: I10 Essential (primary) hypertension (principal); J44.9 Chronic obstructive pulmonary disease, unspecified; E78.5 Hyperlipidemia, unspecified; M19.90 Unspecified osteoarthritis, unspecified site; I42.1 Obstructive hypertrophic cardiomyopathy
CPT/HCPCS: Q3014

== ENCOUNTER → 2020-09-16 | Outpatient (CLI) | payer MEDICARE, OTHER ==
[~2020-09-16] VITALS: Ht 160 cm; Wt 68.6 kg
[2020-09-16 10:30] VITALS: BP 129/72
== END | disposition home or self-care (01) ==
LOC: SRCNTR 09:59
PROVIDERS: ATTEND Internal Medicine Cardiovascular Disease
DX: I10 Essential (primary) hypertension (principal); J44.9 Chronic obstructive pulmonary disease, unspecified; J45.909 Unspecified asthma, uncomplicated; E78.5 Hyperlipidemia, unspecified; M19.90 Unspecified osteoarthritis, unspecified site
CPT/HCPCS: G0463

== ENCOUNTER → 2020-10-16 | Outpatient (CLI) | payer MEDICARE, OTHER ==
[2020-10-16 12:15] LABS: BASOPHILS % (AUTO) 0.9 % (0.0-2.0); EOSINOPHILS % (AUTO) 4.9 % (1.0-6.0); HEMATOCRIT 46.4 % (41-53); HEMOGLOBIN 15.1 g/dL (13.5-17.5); LYMPHOCYTES # (AUTO) 2.5 K/uL (1.0-4.8); LYMPHOCYTES % (AUTO) 38.3 % (22.0-44.0); MEAN CORPUSCULAR HEMOGLOBIN 29.5 pg (26.0-34.0); MEAN CORPUSCULAR HGB CONC 32.6 G/dL (31.0-37.0); MEAN CORPUSCULAR VOLUME 91 fL (80-100); MONOCYTES # (AUTO) 0.5 K/uL (0.1-1.0); NEUTROPHILS # (AUTO) 3.1 K/uL (1.8-7.7); NEUTROPHILS % (AUTO) 47.9 % (40.0-70.0); PLATELET COUNT (AUTO) 256 K/uL (150-450); RED BLOOD CELL COUNT(AUTO) 5.13 MIL/uL (4.50-5.90); RED CELL DISTRIBUTION WIDTH 14.8 % (11.5-14.5)
[2020-10-16 12:29] LABS: HEMOGLOBIN A1C 7.6 % (3.8-5.6)
[2020-10-16 12:46] LABS: ALANINE AMINOTRANSFERASE 59 U/L (12-78); ALBUMIN 4.4 g/dL (3.4-5.0); ALKALINE PHOSPHATASE 79 U/L (46-116); ANION GAP 6 mmol/L (8-16); ASPARTATE AMINOTRANSFERASE 41 U/L (15-37); BILIRUBIN,TOTAL 0.7 mg/dL (0.1-1.0); CALCIUM, TOTAL 9.2 mg/dL (8.8-10.5); CARBON DIOXIDE 30 mmol/L (22-29); CHLORIDE 102 mmol/L (98-107); CHOL/HDL RATIO 2.8 (4.2-7.3); CHOLESTEROL 128 mg/dL (131-200); CREATININE 0.92 mg/dL (0.60-1.30); GLOMERULAR FILTR. RATE CALC > 60 mL/min (>60); GLUCOSE,RANDOM 133 mg/dL (70-110); HDL CHOLESTEROL 46 mg/dL (40-60); LDL CHOL (CALC.) 61 mg/dL (0-130); SODIUM SERUM 138 mmol/L (136-145); THYROID STIMULATING HORMONE 2.17 uIU/mL (0.36-3.74); TRIGLYCERIDES 104 mg/dL (15-150); UREA NITROGEN, BLOOD 12 mg/dL (7-18)
[2020-10-16 12:47] LABS: PROSTATE SPECIFIC ANTIGEN 2.45 ng/mL (0.00-4.00)
[2020-10-16 12:55] LABS: URIC ACID 7.6 mg/dL (2.6-7.2)
== END | disposition home or self-care (01) ==
LOC: LABPV 09:39
PROVIDERS: ATTEND Family Medicine
DX: I10 Essential (primary) hypertension (principal); E78.5 Hyperlipidemia, unspecified; E11.65 Type 2 diabetes mellitus with hyperglycemia; M19.90 Unspecified osteoarthritis, unspecified site; M10.9 Gout, unspecified; N40.0 Benign prostatic hyperplasia without lower urinary tract symptoms
CPT/HCPCS: 80053; 80061; 83036; 84153; 84443; 84550; 85025

== ENCOUNTER 2021-01-20 05:25 | Day surgery (SDC) | payer MEDICARE, OTHER ==
[2021-01-18 10:17] LABS: COVID AG,FIA SOURCE NASOPHARYNGEAL
[~2021-01-20] VITALS: Ht 162.6 cm; Wt 65.9 kg
[~2021-01-20 05:25] MED LIST changes: -CETI-450 PO; +CETI10TA58 PO; +EZET10TA13 PO; +FURO20TA4 PO; +KETOROLAC TROMETHAMINE 0.5% 5 ML OPHTHALMIC SOLUTION ONE; -MONT-35 PO; +MONT10TA32 PO; +MOXIFLOXACIN HCL 0.5% 3 ML OPHTHALMIC SOLUTION ONE; +PHENYLEPHRINE HCL 2.5% 2 ML OPHTHALMIC SOLUTION ONE; +SODIUM CHLORIDE 0.9% 500 ML IV ONE; +TROPICAMIDE 1% 2 ML OPHTHALMIC SOLUTION ONE
[2021-01-20] MEDS ORDERED: LIDOCAINE/PF 1% 2 ML VIAL CAUDAL ONE (05:26)
[2021-01-20] MEDS ORDERED: FentaNYL CITRATE PF 100 MCG/2 ML VIAL IVP ONE (05:26)
[2021-01-20] MEDS ORDERED: MIDAZOLAM HCL 2 MG/2 ML VIAL IVP ONE (05:26)
[2021-01-20] MEDS ORDERED: TETRACAINE HCL/PF 0.5% 4 ML OPHTHALMIC SOLUTION OD ONE (05:26)
[2021-01-20] MEDS ORDERED: BALANCED SALT 15 ML OPHTHALMIC IRRIG.SOLN IO ONE (05:26)
[2021-01-20] MEDS ORDERED: POVIDONE-IODINE 10% 15 ML SOLUTION UD TP ONE (05:26)
[2021-01-20] MEDS ORDERED: EPINEPHrine 1:1,000 [1 MG/ML] AMP ET ONE (05:26)
[2021-01-20] MEDS ORDERED: CHONDR SULF A SOD/HYALURONATE 1.05 ML KIT IO ONE (05:26)
[2021-01-20] MEDS ORDERED: RINGERS SOLUTION,LACTATED 500 ML IV ONE (06:00)
[2021-01-20] MEDS: TROPICAMIDE 1% 2 ML OPHTHALMIC SOLUTION OS SCH ×3 (06:11→06:24)
[2021-01-20] MEDS: KETOROLAC TROMETHAMINE 0.5% 5 ML OPHTHALMIC SOLUTION OS SCH ×3 (06:11→06:24)
[2021-01-20] MEDS: MOXIFLOXACIN HCL 0.5% 3 ML OPHTHALMIC SOLUTION OS SCH ×3 (06:11→06:25)
[2021-01-20] MEDS: PHENYLEPHRINE HCL 2.5% 2 ML OPHTHALMIC SOLUTION OS SCH ×3 (06:12→06:24)
== END 2021-01-20 08:40 | disposition home or self-care (01) ==
LOC: SURGERY 05:25
PROVIDERS: ATTEND Ophthalmology
DX: H25.12 Age-related nuclear cataract, left eye (principal); J45.909 Unspecified asthma, uncomplicated; E78.00 Pure hypercholesterolemia, unspecified; I10 Essential (primary) hypertension; M10.9 Gout, unspecified; Z20.822 Contact with and (suspected) exposure to COVID-19; Z79.899 Other long term (current) drug therapy; Z87.01 Personal history of pneumonia (recurrent); Z82.49 Family history of ischemic heart disease and other diseases of the circulatory system; Z83.511 Family history of glaucoma
CPT/HCPCS: 66984; 87426; 93005; A9575; C9803; J0171; J2250; J3010; J3490; J7040; V2632

== ENCOUNTER → 2021-01-22 | Outpatient (CLI) | payer MEDICARE, OTHER ==
[~2021-01-22] VITALS: Ht 160 cm; Wt 73.6 kg
[~2021-01-22] MED LIST changes: -KETOROLAC TROMETHAMINE 0.5% 5 ML OPHTHALMIC SOLUTION ONE; -MOXIFLOXACIN HCL 0.5% 3 ML OPHTHALMIC SOLUTION ONE; -PHENYLEPHRINE HCL 2.5% 2 ML OPHTHALMIC SOLUTION ONE; -SODIUM CHLORIDE 0.9% 500 ML IV ONE; -TROPICAMIDE 1% 2 ML OPHTHALMIC SOLUTION ONE
[2021-01-22 11:09] VITALS: BP 118/65
== END | disposition home or self-care (01) ==
LOC: SRCNTR 10:43
PROVIDERS: ATTEND Internal Medicine Cardiovascular Disease
DX: I10 Essential (primary) hypertension (principal); J44.9 Chronic obstructive pulmonary disease, unspecified; E78.5 Hyperlipidemia, unspecified; M19.90 Unspecified osteoarthritis, unspecified site
CPT/HCPCS: G0463

== ENCOUNTER 2021-03-10 06:09 | Day surgery (SDC) | payer MEDICARE, OTHER ==
[2021-03-08 10:56] LABS: COVID AG,FIA SOURCE NASOPHARYNGEAL
[~2021-03-10] VITALS: Ht 162.6 cm; Wt 66.8 kg
[~2021-03-10 06:09] MED LIST changes: +KETOROLAC TROMETHAMINE 0.5% 5 ML OPHTHALMIC SOLUTION ONE; +MONT-40 PO; -MONT10TA32 PO; +MOXIFLOXACIN HCL 0.5% 3 ML OPHTHALMIC SOLUTION ONE; +PHENYLEPHRINE HCL 2.5% 2 ML OPHTHALMIC SOLUTION ONE; +RINGERS SOLUTION,LACTATED 500 ML IV ONE; +TROPICAMIDE 1% 2 ML OPHTHALMIC SOLUTION ONE
[2021-03-10] MEDS ORDERED: POVIDONE-IODINE 10% 15 ML SOLUTION UD TP ONE (06:10)
[2021-03-10] MEDS ORDERED: BALANCED SALT 15 ML OPHTHALMIC IRRIG.SOLN OD ONE (06:10)
[2021-03-10] MEDS ORDERED: EPINEPHrine 1:1,000 [1 MG/ML] AMP IM ONE (06:10)
[2021-03-10] MEDS ORDERED: LIDOCAINE/PF 1% 2 ML VIAL IM ONE (06:10)
[2021-03-10] MEDS ORDERED: CHONDR SULF A SOD/HYALURONATE 1.05 ML KIT IO ONE (06:10)
[2021-03-10] MEDS ORDERED: TETRACAINE HCL/PF 0.5% 4 ML OPHTHALMIC SOLUTION OD ONE (06:10)
[2021-03-10] MEDS ORDERED: RINGERS SOLUTION,LACTATED 500 ML IV ONE (06:30)
[2021-03-10] MEDS: KETOROLAC TROMETHAMINE 0.5% 5 ML OPHTHALMIC SOLUTION OD SCH ×3 (06:47→06:58)
[2021-03-10] MEDS: TROPICAMIDE 1% 2 ML OPHTHALMIC SOLUTION OD SCH ×3 (06:47→06:58)
[2021-03-10] MEDS: MOXIFLOXACIN HCL 0.5% 3 ML OPHTHALMIC SOLUTION OD SCH ×3 (06:48→06:58)
[2021-03-10] MEDS: PHENYLEPHRINE HCL 2.5% 2 ML OPHTHALMIC SOLUTION OD SCH ×3 (06:48→06:58)
[2021-03-10] MEDS ORDERED: MIDAZOLAM HCL 2 MG/2 ML VIAL IVP ONE (12:00)
[2021-03-10] MEDS ORDERED: FentaNYL CITRATE PF 100 MCG/2 ML VIAL IVP ONE (12:00)
== END 2021-03-10 08:45 | disposition home or self-care (01) ==
LOC: SURGERY 06:09
PROVIDERS: ATTEND Ophthalmology
DX: H26.8 Other specified cataract (principal); J44.9 Chronic obstructive pulmonary disease, unspecified; I10 Essential (primary) hypertension; Z88.2 Allergy status to sulfonamides; Z88.8 Allergy status to other drugs, medicaments and biological substances; E78.5 Hyperlipidemia, unspecified; Z86.73 Personal history of transient ischemic attack (TIA), and cerebral infarction without residual deficits; Z79.899 Other long term (current) drug therapy; Z98.890 Other specified postprocedural states
CPT/HCPCS: 66984; 87426; 93005; C9803; J0171; J2250; J3010; J3490; J7120; Q9967; V2632

== ENCOUNTER → 2021-03-22 | Outpatient (CLI) | payer MEDICARE, OTHER ==
[~2021-03-22] VITALS: Ht 160 cm; Wt 69.3 kg
[~2021-03-22] MED LIST changes: +INFLUENZA VIRUS VACCINE QVS 2021-22 (6MO+)/PF 60 MCG/0.5 ML SYRINGE IM. ONE; -KETOROLAC TROMETHAMINE 0.5% 5 ML OPHTHALMIC SOLUTION ONE; -MONT-40 PO; +MONT10TA32 PO; -MOXIFLOXACIN HCL 0.5% 3 ML OPHTHALMIC SOLUTION ONE; -PHENYLEPHRINE HCL 2.5% 2 ML OPHTHALMIC SOLUTION ONE; -RINGERS SOLUTION,LACTATED 500 ML IV ONE; -TROPICAMIDE 1% 2 ML OPHTHALMIC SOLUTION ONE
[2021-03-22 10:26] VITALS: BP 111/64
== END | disposition home or self-care (01) ==
LOC: SRCNTR 10:00
PROVIDERS: ATTEND Internal Medicine Cardiovascular Disease
DX: Z23 Encounter for immunization (principal); J44.9 Chronic obstructive pulmonary disease, unspecified; I10 Essential (primary) hypertension; E78.5 Hyperlipidemia, unspecified; M19.90 Unspecified osteoarthritis, unspecified site; E78.00 Pure hypercholesterolemia, unspecified; Z20.822 Contact with and (suspected) exposure to COVID-19; Z87.01 Personal history of pneumonia (recurrent); Z79.899 Other long term (current) drug therapy
CPT/HCPCS: 90471; 90686; G0463

== ENCOUNTER → 2021-04-14 | Outpatient (CLI) | payer MEDICARE, OTHER ==
[~2021-04-14] MED LIST changes: -INFLUENZA VIRUS VACCINE QVS 2021-22 (6MO+)/PF 60 MCG/0.5 ML SYRINGE IM. ONE; +MONT-40 PO; -MONT10TA32 PO
== END | disposition home or self-care (01) ==
LOC: RADPV 08:36
PROVIDERS: ATTEND Internal Medicine Cardiovascular Disease
DX: I08.3 Combined rheumatic disorders of mitral, aortic and tricuspid valves (principal)
CPT/HCPCS: 93306

== ENCOUNTER → 2021-09-06 | Outpatient (CLI) | payer MEDICARE, OTHER ==
[~2021-09-06] VITALS: Ht 160 cm; Wt 68.5 kg
[2021-09-06 10:19] VITALS: BP 123/67
== END | disposition home or self-care (01) ==
LOC: SRCNTR 09:46
PROVIDERS: ATTEND Internal Medicine Cardiovascular Disease
DX: I10 Essential (primary) hypertension (principal); E78.5 Hyperlipidemia, unspecified; J44.9 Chronic obstructive pulmonary disease, unspecified; M19.90 Unspecified osteoarthritis, unspecified site; Z79.899 Other long term (current) drug therapy; Z88.8 Allergy status to other drugs, medicaments and biological substances
CPT/HCPCS: G0463; Z7500

== ENCOUNTER → 2021-10-19 | Outpatient (CLI) | payer MEDICARE, OTHER ==
[~2021-10-19] MED LIST changes: -CARV6 PO; -FURO20TA4 PO
== END | disposition home or self-care (01) ==
LOC: RADPV 09:20
PROVIDERS: ATTEND Internal Medicine Cardiovascular Disease
DX: I08.1 Rheumatic disorders of both mitral and tricuspid valves (principal)
CPT/HCPCS: 93306

== ENCOUNTER 2021-12-29 16:19 | Inpatient (IN) | payer MEDICARE, OTHER ==
[~2021-12-29] VITALS: Ht 170.2 cm; Wt 69.2 kg
[~2021-12-29 16:19] MED LIST changes: -MELO-107 PO; +MELO-381 PO
[2021-12-29] MEDS ORDERED: 0.9% SODIUM CHLORIDE 10 ML SYRINGE IVP PRN (16:30)
[2021-12-29] MEDS ORDERED: SODIUM CHLORIDE 0.9% 2,300 ML IV ONE (16:30)
[2021-12-29] MEDS ORDERED: CefTRIAXone 1 GM/DEXTROSE 50 ML IV ONE (16:30)
[2021-12-29 16:57] LABS: BASOPHILS % (AUTO) 0.4 % (0.0-2.0); EOSINOPHILS % (AUTO) 0 % (1.0-6.0); HEMATOCRIT 43.8 % (41-53); HEMOGLOBIN 14.5 g/dL (13.5-17.5); LYMPHOCYTES # (AUTO) 1.5 K/uL (1.0-4.8); MEAN CORPUSCULAR HEMOGLOBIN 29.7 pg (26.0-34.0); MEAN CORPUSCULAR VOLUME 90 fL (80-100); MONOCYTES % (AUTO) 7.8 % (2.0-9.0); NEUTROPHILS % (AUTO) 79.8 % (40.0-70.0); PLATELET COUNT (AUTO) 215 K/uL (150-450); RED BLOOD CELL COUNT(AUTO) 4.88 MIL/uL (4.50-5.90); RED CELL DISTRIBUTION WIDTH 14.7 % (11.5-14.5)
[2021-12-29 17:07] LABS: ANION GAP 13 mmol/L (8-16); CARBON DIOXIDE 26 mmol/L (22-29); CHLORIDE 100 mmol/L (98-107); CREATININE 1.14 mg/dL (0.60-1.30); GLOMERULAR FILTR. RATE CALC > 60 mL/min (>60); GLUCOSE,RANDOM 223 mg/dL (70-110); POTASSIUM 4.2 mmol/L (3.5-5.1); SODIUM SERUM 139 mmol/L (136-145); UREA NITROGEN, BLOOD 13 mg/dL (7-18)
[2021-12-29 17:08] LABS: INR 1.1 (0.9-1.1); PROTHROMBIN TIME 11.7 SEC (9.4-11.6)
[2021-12-29 17:13] LABS: ALANINE AMINOTRANSFERASE 41 U/L (12-78); ALBUMIN 3.3 g/dL (3.4-5.0); ALKALINE PHOSPHATASE 82 U/L (46-116); ASPARTATE AMINOTRANSFERASE 31 U/L (15-37); BILIRUBIN,TOTAL 1.2 mg/dL (0.1-1.0); TOTAL PROTEIN, SERUM 7.7 g/dL (6.4-8.2)
[2021-12-29] MEDS ORDERED: ACETAMINOPHEN 500 MG TABLET PO ONE (17:15)
[2021-12-29 17:17] LABS: LACTIC ACID 2.5 mmol/L (0.4-2.0)
[2021-12-29 17:58] LABS: COVID AG,FIA SOURCE NASAL SWAB
[2021-12-29] MEDS ORDERED: ALBUTEROL SULFATE 2.5 MG/0.5 ML NEB SOLUTION NEB PRN (18:00)
[2021-12-29] MEDS ORDERED: IPRATROPIUM BROMIDE 0.5 MG/2.5 ML NEB SOLUTION NEB PRN (18:00)
[2021-12-29] MEDS ORDERED: MAGNESIUM HYDROXIDE SUSPENSION 30 ML UDCUP PO PRN (18:00)
[2021-12-29] MEDS ORDERED: DEXTROSE 50%-WATER 25 GM/50 ML SYRINGE IVP PRN (18:00)
[2021-12-29] MEDS ORDERED: SODIUM CHLORIDE 0.9% 1,000 ML IV ONE (18:00)
[2021-12-29] MEDS ORDERED: ONDANSETRON HCL 4 MG/2 ML VIAL IVP PRN (18:00)
[2021-12-29] MEDS: AZITHROMYCIN 500 MG/NS 250 ML IV SCH (18:37)
[2021-12-29 18:43] LABS: APPEARANCE,URINE CLEAR (CLEAR); BILIRUBIN,URINE NEGATIVE (NEGATIVE); GLUCOSE, URINE (UA) 300-500 mg/dL (NEGATIVE); KETONES,URINE 40-60 mg/dL (NEGATIVE); LEUKOCYTE ESTERASE ,URINE NEGATIVE (NEGATIVE); NITRATE,URINE NEGATIVE (NEGATIVE); OCCULT BLOOD,URINE LARGE (NEGATIVE); PROTEIN,URINE 30-70 mg/dL (NEGATIVE); SPECIFIC GRAVITIY, URINE 1.018 (1.003-1.030); UROBILINOGEN,URINE <=1.0 mg/dL (<=1.0)
[2021-12-29 18:53] LABS: INFLUENZA TYPE A NEGATIVE FOR TYPE A (NEGATIVE); INFLUENZA TYPE B NEGATIVE FOR TYPE B (NEGATIVE)
[2021-12-29 19:01] LABS: RBC,URINE 51-100 /HPF (0-2)
[2021-12-29 19:02] LABS: BACTERIA,URINE None Seen /HPF (None Seen)
[2021-12-29] MEDS ORDERED: PredniSONE 20 MG TABLET PO ONE (20:15)
[2021-12-29 21:08] VITALS: BP 130/70
[2021-12-29] MEDS: DOCUSATE SODIUM 100 MG CAPSULE PO SCH (21:17)
[2021-12-29] MEDS: INSULIN LISPRO 100 UNITS/ML SQ PRN (21:31)
[2021-12-29 23:44] VITALS: BP 134/85
[2021-12-30] MEDS: HEPARIN SODIUM,PORCINE 5,000 UNITS/ML VIAL SQ SCH ×3 (02:55→16:10)
[2021-12-30 04:01] VITALS: BP 129/88
[2021-12-30] MEDS: INSULIN LISPRO 100 UNITS/ML SQ PRN ×4 (06:29→21:56)
[2021-12-30 07:23] VITALS: BP 128/78
[2021-12-30] MEDS: FAMOTIDINE 20 MG TABLET PO SCH (09:00)
[2021-12-30] MEDS: DOCUSATE SODIUM 100 MG CAPSULE PO SCH ×2 (09:00→20:10)
[2021-12-30] MEDS ORDERED: INDOMETHACIN 25 MG CAPSULE PO PRN (09:45)
[2021-12-30 11:21] LABS: GLUCOMETER DEV NAME(LOC) 5N.1C; GLUCOSE,POINT OF CARE 218 MG/DL (70-110)
[2021-12-30 11:21] LABS: GLUCOMETER DEV NAME(LOC) 5N.1C; GLUCOSE,POINT OF CARE 208 MG/DL (70-110)
[2021-12-30 11:31] VITALS: BP 132/83
[2021-12-30 12:12] LABS: GLUCOMETER DEV NAME(LOC) 5S.1B; GLUCOSE,POINT OF CARE 181 MG/DL (70-110)
[2021-12-30 15:54] VITALS: BP 130/76
[2021-12-30] MEDS: CefTRIAXone 1 GM/DEXTROSE 50 ML IV SCH (16:10)
[2021-12-30] MEDS ORDERED: SODIUM CHLORIDE 0.9% 500 ML IV ONE (16:15)
[2021-12-30] MEDS: AZITHROMYCIN 500 MG/NS 250 ML IV SCH (17:54)
[2021-12-30 20:25] VITALS: BP 159/70
[2021-12-31] VITALS (8 sets, daily range): BP systolic 133–171; BP diastolic 72–92
[2021-12-31] MEDS: HEPARIN SODIUM,PORCINE 5,000 UNITS/ML VIAL SQ SCH ×3 (00:11→15:37)
[2021-12-31 03:51] LABS: GLUCOMETER DEV NAME(LOC) 5S.1B; GLUCOSE,POINT OF CARE 186 MG/DL (70-110)
[2021-12-31 03:51] LABS: GLUCOMETER DEV NAME(LOC) 5S.1B; GLUCOSE,POINT OF CARE 174 MG/DL (70-110)
[2021-12-31 06:37] LABS: BASOPHILS % (AUTO) 0.2 % (0.0-2.0); EOSINOPHILS % (AUTO) 0.1 % (1.0-6.0); HEMATOCRIT 42.1 % (41-53); HEMOGLOBIN 14.3 g/dL (13.5-17.5); LYMPHOCYTES # (AUTO) 1.3 K/uL (1.0-4.8); LYMPHOCYTES % (AUTO) 9.6 % (22.0-44.0); MEAN CORPUSCULAR HEMOGLOBIN 30.3 pg (26.0-34.0); MEAN CORPUSCULAR HGB CONC 33.9 G/dL (31.0-37.0); MEAN CORPUSCULAR VOLUME 90 fL (80-100); MONOCYTES # (AUTO) 1.1 K/uL (0.1-1.0); MONOCYTES % (AUTO) 7.9 % (2.0-9.0); NEUTROPHILS % (AUTO) 82.2 % (40.0-70.0); PLATELET COUNT (AUTO) 251 K/uL (150-450); RED CELL DISTRIBUTION WIDTH 14.4 % (11.5-14.5)
[2021-12-31 06:44] LABS: ANION GAP 9 mmol/L (8-16); CALCIUM, TOTAL 8.9 mg/dL (8.8-10.5); CARBON DIOXIDE 24 mmol/L (22-29); CHLORIDE 103 mmol/L (98-107); CREATININE 0.65 mg/dL (0.60-1.30); GLUCOSE,RANDOM 155 mg/dL (70-110); POTASSIUM 4.2 mmol/L (3.5-5.1); SODIUM SERUM 136 mmol/L (136-145); UREA NITROGEN, BLOOD 17 mg/dL (7-18)
[2021-12-31 06:49] LABS: GLOMERULAR FILTR. RATE CALC > 60 mL/min (>60)
[2021-12-31] MEDS: FAMOTIDINE 20 MG TABLET PO SCH (08:32)
[2021-12-31] MEDS: DOCUSATE SODIUM 100 MG CAPSULE PO SCH ×2 (08:32→20:40)
[2021-12-31 12:31] LABS: GLUCOMETER DEV NAME(LOC) 5S.1B; GLUCOSE,POINT OF CARE 214 MG/DL (70-110)
[2021-12-31] MEDS: INSULIN LISPRO 100 UNITS/ML SQ PRN ×3 (12:38→20:41)
[2021-12-31] MEDS ORDERED: ASPIRIN 81 MG CHEWABLE TABLET PO ONE (13:45)
[2021-12-31] MEDS: ATORVASTATIN CALCIUM 40 MG TABLET PO SCH (13:58)
[2021-12-31] MEDS: CefTRIAXone 1 GM/DEXTROSE 50 ML IV SCH (15:36)
[2021-12-31] MEDS: AZITHROMYCIN 500 MG/NS 250 ML IV SCH (17:37)
[2021-12-31 18:36] LABS: GLUCOMETER DEV NAME(LOC) 5S.1B; GLUCOSE,POINT OF CARE 298 MG/DL (70-110)
[2021-12-31 22:06] LABS: GLUCOMETER DEV NAME(LOC) 5S.1B; GLUCOSE,POINT OF CARE 273 MG/DL (70-110)
[2022-01-01] MEDS: HEPARIN SODIUM,PORCINE 5,000 UNITS/ML VIAL SQ SCH (00:35)
[2022-01-01] MEDS: INSULIN LISPRO 100 UNITS/ML SQ PRN ×5 (01:13→21:12)
[2022-01-01] MEDS ORDERED: METOPROLOL TARTRATE 5 MG/5 ML VIAL IVP ONE (01:15)
[2022-01-01 03:55] VITALS: BP 142/76
[2022-01-01 05:51] LABS: GLUCOMETER DEV NAME(LOC) 5S.1B; GLUCOSE,POINT OF CARE 214 MG/DL (70-110)
[2022-01-01] MEDS ORDERED: ATORVASTATIN CALCIUM 40 MG TABLET PO ONE (06:00)
[2022-01-01] MEDS ORDERED: HEPARIN SODIUM 25000 UNITS/D5W 250 ML IV PRN (06:00)
[2022-01-01] MEDS ORDERED: HEPARIN SODIUM,PORCINE 5,000 UNITS/ML VIAL IVP PRN ×2 (06:00)
[2022-01-01] MEDS ORDERED: ASPIRIN 300 MG RECTAL SUPPOSITORY PR ONE (06:15)
[2022-01-01] MEDS ORDERED: IOHEXOL 350 MG/ML 100 ML VIAL ONE (06:17)
[2022-01-01] MEDS ORDERED: SODIUM CHLORIDE 0.9% 100 ML ONE (06:17)
[2022-01-01 06:42] VITALS: BP 125/79
[2022-01-01 07:05] LABS: BASOPHILS % (AUTO) 0.2 % (0.0-2.0); EOSINOPHILS % (AUTO) 0 % (1.0-6.0); HEMATOCRIT 41.5 % (41-53); HEMOGLOBIN 13.9 g/dL (13.5-17.5); LYMPHOCYTES # (AUTO) 2.2 K/uL (1.0-4.8); LYMPHOCYTES % (AUTO) 13.6 % (22.0-44.0); MEAN CORPUSCULAR HEMOGLOBIN 29.9 pg (26.0-34.0); MEAN CORPUSCULAR HGB CONC 33.4 G/dL (31.0-37.0); MEAN CORPUSCULAR VOLUME 89 fL (80-100); MONOCYTES # (AUTO) 1.7 K/uL (0.1-1.0); MONOCYTES % (AUTO) 10.5 % (2.0-9.0); NEUTROPHILS # (AUTO) 12.5 K/uL (1.8-7.7); NEUTROPHILS % (AUTO) 75.7 % (40.0-70.0); PLATELET COUNT (AUTO) 239 K/uL (150-450); RED BLOOD CELL COUNT(AUTO) 4.64 MIL/uL (4.50-5.90); RED CELL DISTRIBUTION WIDTH 14.3 % (11.5-14.5)
[2022-01-01 07:19] LABS: INR 1.1 (0.9-1.1); PROTHROMBIN TIME 11.4 SEC (9.4-11.6)
[2022-01-01 07:21] LABS: ALANINE AMINOTRANSFERASE 50 U/L (12-78); ALBUMIN 2.6 g/dL (3.4-5.0); ALKALINE PHOSPHATASE 81 U/L (46-116); ANION GAP 8 mmol/L (8-16); ASPARTATE AMINOTRANSFERASE 46 U/L (15-37); BILIRUBIN,TOTAL 0.8 mg/dL (0.1-1.0); CALCIUM, TOTAL 8.7 mg/dL (8.8-10.5); CARBON DIOXIDE 28 mmol/L (22-29); CHLORIDE 102 mmol/L (98-107); CHOL/HDL RATIO 2.8 (4.2-7.3); CHOLESTEROL 127 mg/dL (131-200); CREATININE 0.85 mg/dL (0.60-1.30); GLUCOSE,RANDOM 190 mg/dL (70-110); HDL CHOLESTEROL 46 mg/dL (40-60); LDL CHOL (CALC.) 63 mg/dL (0-130); POTASSIUM 3.7 mmol/L (3.5-5.1); SODIUM SERUM 138 mmol/L (136-145); TRIGLYCERIDES 92 mg/dL (15-150); UREA NITROGEN, BLOOD 13 mg/dL (7-18)
[2022-01-01 07:22] LABS: GLOMERULAR FILTR. RATE CALC > 60 mL/min (>60)
[2022-01-01 07:45] VITALS: BP 132/75
[2022-01-01] MEDS: DOCUSATE SODIUM 100 MG CAPSULE PO SCH ×2 (09:00→21:10)
[2022-01-01 09:06] LABS: GLUCOMETER DEV NAME(LOC) 5S.1B; GLUCOSE,POINT OF CARE 178 MG/DL (70-110)
[2022-01-01] MEDS: FAMOTIDINE 20 MG TABLET PO SCH (09:28)
[2022-01-01] MEDS: DILTIAZEM HCL 30 MG TABLET PO SCH ×3 (09:28→21:10)
[2022-01-01] MEDS: ATORVASTATIN CALCIUM 40 MG TABLET PO SCH (09:28)
[2022-01-01 11:18] VITALS: BP 139/80
[2022-01-01] MEDS: DEXTROSE 5%-0.45% SODIUM CHL 1,000 ML IV SCH (11:20)
[2022-01-01] MEDS: ACETAMINOPHEN 325 MG TABLET PO PRN (11:46)
[2022-01-01 12:07] LABS: GLUCOMETER DEV NAME(LOC) 5S.1B; GLUCOSE,POINT OF CARE 162 MG/DL (70-110)
[2022-01-01 12:38] LABS: D-DIMER 1.97 mg/L FEU (0.00-0.50)
[2022-01-01] MEDS: CefTRIAXone 1 GM/DEXTROSE 50 ML IV SCH (15:58)
[2022-01-01 16:30] VITALS: BP 137/68
[2022-01-01 17:51] LABS: GLUCOMETER DEV NAME(LOC) 5N.3; GLUCOSE,POINT OF CARE 215 MG/DL (70-110)
[2022-01-01] MEDS: AZITHROMYCIN 500 MG/NS 250 ML IV SCH (17:59)
[2022-01-01 20:15] VITALS: BP 138/70
[2022-01-01 20:31] LABS: GLUCOMETER DEV NAME(LOC) 5N.1C; GLUCOSE,POINT OF CARE 222 MG/DL (70-110)
[2022-01-01] MEDS: APIXABAN 2.5 MG TABLET PO SCH (21:10)
[2022-01-02 00:48] VITALS: BP 134/75
[2022-01-02] MEDS: DILTIAZEM HCL 30 MG TABLET PO SCH ×4 (03:47→20:19)
[2022-01-02 04:40] VITALS: BP 144/71
[2022-01-02] MEDS: INSULIN LISPRO 100 UNITS/ML SQ PRN ×2 (06:12→21:57)
[2022-01-02 06:31] LABS: BASOPHILS % (AUTO) 0.1 % (0.0-2.0); EOSINOPHILS % (AUTO) 0 % (1.0-6.0); HEMOGLOBIN 14.3 g/dL (13.5-17.5); LYMPHOCYTES # (AUTO) 1.4 K/uL (1.0-4.8); LYMPHOCYTES % (AUTO) 8.2 % (22.0-44.0); MEAN CORPUSCULAR HEMOGLOBIN 29.8 pg (26.0-34.0); MEAN CORPUSCULAR HGB CONC 33.4 G/dL (31.0-37.0); MEAN CORPUSCULAR VOLUME 89 fL (80-100); MONOCYTES # (AUTO) 1.5 K/uL (0.1-1.0); MONOCYTES % (AUTO) 9.1 % (2.0-9.0); NEUTROPHILS # (AUTO) 13.6 K/uL (1.8-7.7); NEUTROPHILS % (AUTO) 82.6 % (40.0-70.0); PLATELET COUNT (AUTO) 274 K/uL (150-450); RED BLOOD CELL COUNT(AUTO) 4.82 MIL/uL (4.50-5.90); RED CELL DISTRIBUTION WIDTH 14.3 % (11.5-14.5)
[2022-01-02 07:05] LABS: ALANINE AMINOTRANSFERASE 61 U/L (12-78); ALBUMIN 2.7 g/dL (3.4-5.0); ALKALINE PHOSPHATASE 94 U/L (46-116); ANION GAP 14 mmol/L (8-16); ASPARTATE AMINOTRANSFERASE 51 U/L (15-37); CALCIUM, TOTAL 9.1 mg/dL (8.8-10.5); CARBON DIOXIDE 28 mmol/L (22-29); CHLORIDE 100 mmol/L (98-107); CREATININE 0.94 mg/dL (0.60-1.30); FERRITIN 957 ng/mL (26-388); GLOMERULAR FILTR. RATE CALC > 60 mL/min (>60); GLUCOSE,RANDOM 230 mg/dL (70-110); POTASSIUM 3.7 mmol/L (3.5-5.1); SODIUM SERUM 142 mmol/L (136-145); TOTAL PROTEIN, SERUM 7.7 g/dL (6.4-8.2); UREA NITROGEN, BLOOD 12 mg/dL (7-18)
[2022-01-02 07:14] LABS: URIC ACID 5.5 mg/dL (2.6-7.2)
[2022-01-02 08:02] VITALS: BP 129/68
[2022-01-02 08:11] LABS: GLUCOMETER DEV NAME(LOC) 5N.1C; GLUCOSE,POINT OF CARE 219 MG/DL (70-110)
[2022-01-02] MEDS: FAMOTIDINE 20 MG TABLET PO SCH (10:13)
[2022-01-02] MEDS: APIXABAN 2.5 MG TABLET PO SCH (10:13)
[2022-01-02] MEDS: ATORVASTATIN CALCIUM 40 MG TABLET PO SCH (10:13)
[2022-01-02] MEDS: DOCUSATE SODIUM 100 MG CAPSULE PO SCH ×2 (10:13→20:22)
[2022-01-02] MEDS: DEXTROSE 5%-0.45% SODIUM CHL 1,000 ML IV SCH (10:14)
[2022-01-02 10:51] VITALS: BP 140/77
[2022-01-02] MEDS ORDERED: DEXTROSE 5%-0.45% SODIUM CHL 1,000 ML IV SCH (11:15)
[2022-01-02 15:08] VITALS: BP 141/75
[2022-01-02] MEDS: CefTRIAXone 1 GM/DEXTROSE 50 ML IV SCH (17:33)
[2022-01-02] MEDS: AZITHROMYCIN 500 MG/NS 250 ML IV SCH (20:00)
[2022-01-02] MEDS: APIXABAN 5 MG TABLET PO SCH (20:19)
[2022-01-02 20:42] VITALS: BP 135/83
[2022-01-02] MEDS ORDERED: DIGOXIN 250 MCG/ML 2 ML AMP IVP STA (20:52)
[2022-01-02] MEDS ORDERED: DIGOXIN 250 MCG/ML 2 ML AMP ONE (20:58)
[2022-01-02 21:36] LABS: GLUCOMETER DEV NAME(LOC) 5N.1C; GLUCOSE,POINT OF CARE 248 MG/DL (70-110)
[2022-01-02 21:37] LABS: GLUCOMETER DEV NAME(LOC) 5N.1C; GLUCOSE,POINT OF CARE 311 MG/DL (70-110)
[2022-01-02] MEDS ORDERED: METOPROLOL TARTRATE 5 MG/5 ML VIAL IVP ONE (22:15)
[2022-01-02] MEDS ORDERED: DIGOXIN 250 MCG/ML 2 ML AMP IVP ONE (22:45)
[2022-01-03] VITALS (7 sets, daily range): BP systolic 126–146; BP diastolic 62–97
[2022-01-03] MEDS: DILTIAZEM HCL 30 MG TABLET PO SCH ×2 (03:39→09:32)
[2022-01-03 06:16] LABS: GLUCOMETER DEV NAME(LOC) 5S.1B; GLUCOSE,POINT OF CARE 210 MG/DL (70-110)
[2022-01-03] MEDS: INSULIN LISPRO 100 UNITS/ML SQ PRN ×4 (06:25→21:12)
[2022-01-03] MEDS: ACETAMINOPHEN 325 MG TABLET PO PRN ×2 (06:28→09:32)
[2022-01-03 06:39] LABS: BASOPHILS % (AUTO) 0.1 % (0.0-2.0); EOSINOPHILS % (AUTO) 0 % (1.0-6.0); HEMATOCRIT 40.7 % (41-53); HEMOGLOBIN 13.5 g/dL (13.5-17.5); LYMPHOCYTES # (AUTO) 1.2 K/uL (1.0-4.8); LYMPHOCYTES % (AUTO) 6.6 % (22.0-44.0); MEAN CORPUSCULAR HEMOGLOBIN 29.8 pg (26.0-34.0); MEAN CORPUSCULAR HGB CONC 33.2 G/dL (31.0-37.0); MEAN CORPUSCULAR VOLUME 90 fL (80-100); MONOCYTES # (AUTO) 1.8 K/uL (0.1-1.0); MONOCYTES % (AUTO) 10.2 % (2.0-9.0); NEUTROPHILS # (AUTO) 14.7 K/uL (1.8-7.7); NEUTROPHILS % (AUTO) 83.1 % (40.0-70.0); PLATELET COUNT (AUTO) 308 K/uL (150-450); RED BLOOD CELL COUNT(AUTO) 4.54 MIL/uL (4.50-5.90); RED CELL DISTRIBUTION WIDTH 14.5 % (11.5-14.5)
[2022-01-03 06:46] LABS: GLUCOMETER DEV NAME(LOC) 5N.1C; GLUCOSE,POINT OF CARE 259 MG/DL (70-110)
[2022-01-03 06:54] LABS: ALANINE AMINOTRANSFERASE 48 U/L (12-78); ALBUMIN 2.2 g/dL (3.4-5.0); ALKALINE PHOSPHATASE 96 U/L (46-116); ANION GAP 16 mmol/L (8-16); ASPARTATE AMINOTRANSFERASE 39 U/L (15-37); BILIRUBIN,TOTAL 0.7 mg/dL (0.1-1.0); C-REACTIVE PROTEIN QUANT 22.39 mg/dL (0.00-0.30); CALCIUM, TOTAL 8.8 mg/dL (8.8-10.5); CARBON DIOXIDE 27 mmol/L (22-29); CHLORIDE 101 mmol/L (98-107); CREATININE 0.92 mg/dL (0.60-1.30); GLUCOSE,RANDOM 277 mg/dL (70-110); POTASSIUM 3.7 mmol/L (3.5-5.1); SODIUM SERUM 144 mmol/L (136-145); TOTAL PROTEIN, SERUM 6.9 g/dL (6.4-8.2); UREA NITROGEN, BLOOD 15 mg/dL (7-18)
[2022-01-03 06:59] LABS: GLOMERULAR FILTR. RATE CALC > 60 mL/min (>60)
[2022-01-03] MEDS: FAMOTIDINE 20 MG TABLET PO SCH (09:33)
[2022-01-03] MEDS: APIXABAN 5 MG TABLET PO SCH ×2 (09:33→21:04)
[2022-01-03] MEDS: ATORVASTATIN CALCIUM 10 MG TABLET PO SCH (09:33)
[2022-01-03] MEDS: DOCUSATE SODIUM 100 MG CAPSULE PO SCH ×2 (09:34→21:04)
[2022-01-03] MEDS: DEXTROSE 5%-0.45% SODIUM CHL 1,000 ML IV SCH ×2 (12:17→12:59)
[2022-01-03] MEDS ORDERED: AMIODARONE HCL 150 MG in DEXTROSE 5%-WATER 97 ML IV ONE (12:30)
[2022-01-03] MEDS ORDERED: AMIODARONE HCL 360 MG in DEXTROSE 5%-WATER 242.8 ML IV ONE (12:30)
[2022-01-03] MEDS: CefTRIAXone 1 GM/DEXTROSE 50 ML IV SCH (17:00)
[2022-01-03] MEDS ORDERED: AMIODARONE HCL 540 MG in DEXTROSE 5%-WATER 239.2 ML IV ONE (20:00)
[2022-01-03] MEDS: AZITHROMYCIN 500 MG/NS 250 ML IV SCH (20:21)
[2022-01-03 22:16] LABS: GLUCOMETER DEV NAME(LOC) 5N.3; GLUCOSE,POINT OF CARE 355 MG/DL (70-110)
[2022-01-03 22:16] LABS: GLUCOMETER DEV NAME(LOC) 5N.1C; GLUCOSE,POINT OF CARE 298 MG/DL (70-110)
[2022-01-04] MEDS: DEXTROSE 5%-0.45% SODIUM CHL 1,000 ML IV SCH ×2 (03:07→18:32)
[2022-01-04 03:46] VITALS: BP 134/76
[2022-01-04 05:47] LABS: GLUCOMETER DEV NAME(LOC) 5S.1B; GLUCOSE,POINT OF CARE 322 MG/DL (70-110)
[2022-01-04] MEDS: INSULIN LISPRO 100 UNITS/ML SQ PRN ×3 (06:34→18:33)
[2022-01-04 07:16] LABS: ALANINE AMINOTRANSFERASE 76 U/L (12-78); ALBUMIN 2.1 g/dL (3.4-5.0); ALKALINE PHOSPHATASE 105 U/L (46-116); ANION GAP 12 mmol/L (8-16); ASPARTATE AMINOTRANSFERASE 76 U/L (15-37); BILIRUBIN,TOTAL 0.7 mg/dL (0.1-1.0); CALCIUM, TOTAL 9.2 mg/dL (8.8-10.5); CARBON DIOXIDE 26 mmol/L (22-29); CHLORIDE 103 mmol/L (98-107); CREATININE 0.98 mg/dL (0.60-1.30); GLUCOSE,RANDOM 286 mg/dL (70-110); POTASSIUM 3.6 mmol/L (3.5-5.1); SODIUM SERUM 141 mmol/L (136-145); UREA NITROGEN, BLOOD 18 mg/dL (7-18)
[2022-01-04 07:46] LABS: GLOMERULAR FILTR. RATE CALC > 60 mL/min (>60)
[2022-01-04 07:51] VITALS: BP 140/75
[2022-01-04 08:25] LABS: BASOPHILS % (AUTO) 0.1 % (0.0-2.0); EOSINOPHILS % (AUTO) 0 % (1.0-6.0); HEMATOCRIT 42.9 % (41-53); HEMOGLOBIN 14.1 g/dL (13.5-17.5); LYMPHOCYTES # (AUTO) 1.1 K/uL (1.0-4.8); LYMPHOCYTES % (AUTO) 5.7 % (22.0-44.0); MEAN CORPUSCULAR HEMOGLOBIN 29.6 pg (26.0-34.0); MEAN CORPUSCULAR HGB CONC 32.8 G/dL (31.0-37.0); MEAN CORPUSCULAR VOLUME 90 fL (80-100); MONOCYTES # (AUTO) 1.5 K/uL (0.1-1.0); MONOCYTES % (AUTO) 7.9 % (2.0-9.0); PLATELET COUNT (AUTO) 304 K/uL (150-450); RED BLOOD CELL COUNT(AUTO) 4.76 MIL/uL (4.50-5.90); RED CELL DISTRIBUTION WIDTH 14.5 % (11.5-14.5)
[2022-01-04 08:27] LABS: NEUTROPHILS % (AUTO) 86.3 % (40.0-70.0)
[2022-01-04] MEDS: ATORVASTATIN CALCIUM 10 MG TABLET PO SCH (09:16)
[2022-01-04] MEDS: APIXABAN 5 MG TABLET PO SCH ×2 (09:16→21:53)
[2022-01-04] MEDS: FAMOTIDINE 20 MG TABLET PO SCH (09:16)
[2022-01-04] MEDS: DOCUSATE SODIUM 100 MG CAPSULE PO SCH ×2 (09:16→21:53)
[2022-01-04 11:11] VITALS: BP 149/90
[2022-01-04] MEDS: DILTIAZEM HCL CD 120 MG ER CAPSULE PO SCH ×2 (11:51→21:53)
[2022-01-04] MEDS: AMIODARONE HCL 750 MG in DEXTROSE 5%-WATER 485 ML IV SCH (15:33)
[2022-01-04] MEDS: CefTRIAXone 1 GM/DEXTROSE 50 ML IV SCH (15:38)
[2022-01-04 16:39] VITALS: BP 152/68
[2022-01-04] MEDS: AZITHROMYCIN 500 MG/NS 250 ML IV SCH (18:32)
[2022-01-04 20:40] VITALS: BP 150/81
[2022-01-04 22:01] LABS: GLUCOMETER DEV NAME(LOC) 5N.3; GLUCOSE,POINT OF CARE 330 MG/DL (70-110)
[2022-01-05 00:31] VITALS: BP 131/62
[2022-01-05 04:25] VITALS: BP_SYST 104; BP_SYST 137; BP_DIAS 75; BP_DIAS 81
[2022-01-05] MEDS: ACETAMINOPHEN 325 MG TABLET PO PRN ×2 (05:06→21:20)
[2022-01-05 07:42] VITALS: BP 149/66
[2022-01-05] MEDS: INSULIN LISPRO 100 UNITS/ML SQ PRN ×4 (07:44→21:21)
[2022-01-05] MEDS: APIXABAN 5 MG TABLET PO SCH ×2 (08:59→20:55)
[2022-01-05] MEDS: DILTIAZEM HCL CD 120 MG ER CAPSULE PO SCH ×2 (08:59→20:55)
[2022-01-05] MEDS: FAMOTIDINE 20 MG TABLET PO SCH (08:59)
[2022-01-05] MEDS: ATORVASTATIN CALCIUM 10 MG TABLET PO SCH (08:59)
[2022-01-05] MEDS: DOCUSATE SODIUM 100 MG CAPSULE PO SCH ×2 (09:00→20:55)
[2022-01-05] MEDS: DEXTROSE 5%-0.45% SODIUM CHL 1,000 ML IV SCH (09:01)
[2022-01-05 11:03] VITALS: BP 133/77
[2022-01-05] MEDS ORDERED: INDIUM IN-111 OXYQUINOLINE/.5MCL ISOTOPE 1 EA INJ INJ ONE (13:05)
[2022-01-05 15:27] VITALS: BP 131/79
[2022-01-05] MEDS: CefTRIAXone 1 GM/DEXTROSE 50 ML IV SCH (16:24)
[2022-01-05] MEDS: AZITHROMYCIN 500 MG/NS 250 ML IV SCH (17:43)
[2022-01-05 20:14] VITALS: BP 129/63
[2022-01-05 21:06] LABS: GLUCOMETER DEV NAME(LOC) 5S.2B; GLUCOSE,POINT OF CARE 296 MG/DL (70-110)
[2022-01-05] MEDS: AMIODARONE HCL 750 MG in DEXTROSE 5%-WATER 485 ML IV SCH (23:23)
[2022-01-05] MEDS: PredniSONE 20 MG TABLET PO SCH (23:23)
[2022-01-05 23:42] LABS: GLUCOMETER DEV NAME(LOC) 5N.1C; GLUCOSE,POINT OF CARE 273 MG/DL (70-110)
[2022-01-05 23:43] LABS: GLUCOMETER DEV NAME(LOC) 5N.1C; GLUCOSE,POINT OF CARE 317 MG/DL (70-110)
[2022-01-05 23:43] LABS: GLUCOMETER DEV NAME(LOC) 5N.1C; GLUCOSE,POINT OF CARE 294 MG/DL (70-110)
[2022-01-05 23:43] LABS: GLUCOMETER DEV NAME(LOC) 5N.1C; GLUCOSE,POINT OF CARE 351 MG/DL (70-110)
[2022-01-05 23:43] LABS: GLUCOMETER DEV NAME(LOC) 5N.1C; GLUCOSE,POINT OF CARE 276 MG/DL (70-110)
[2022-01-06] VITALS (7 sets, daily range): BP systolic 109–153; BP diastolic 68–81
[2022-01-06] MEDS: IBUPROFEN 400 MG TABLET PO PRN (00:08)
[2022-01-06] MEDS ORDERED: ACETAMINOPHEN 650 MG RECTAL SUPPOSITORY PR ONE (04:00)
[2022-01-06] MEDS: DEXTROSE 5%-0.45% SODIUM CHL 1,000 ML IV SCH (04:15)
[2022-01-06] MEDS: INSULIN LISPRO 100 UNITS/ML SQ PRN ×2 (04:25→20:51)
[2022-01-06 04:36] LABS: GLUCOMETER DEV NAME(LOC) 5N.1C; GLUCOSE,POINT OF CARE 335 MG/DL (70-110)
[2022-01-06 07:16] LABS: BASOPHILS % (AUTO) 0.1 % (0.0-2.0); EOSINOPHILS % (AUTO) 0 % (1.0-6.0); HEMOGLOBIN 13.9 g/dL (13.5-17.5); LYMPHOCYTES # (AUTO) 1.1 K/uL (1.0-4.8); LYMPHOCYTES % (AUTO) 4.9 % (22.0-44.0); MEAN CORPUSCULAR HEMOGLOBIN 29.7 pg (26.0-34.0); MEAN CORPUSCULAR HGB CONC 33.2 G/dL (31.0-37.0); MEAN CORPUSCULAR VOLUME 89 fL (80-100); MONOCYTES # (AUTO) 1.3 K/uL (0.1-1.0); MONOCYTES % (AUTO) 5.8 % (2.0-9.0); NEUTROPHILS # (AUTO) 19.7 K/uL (1.8-7.7); PLATELET COUNT (AUTO) 354 K/uL (150-450); RED CELL DISTRIBUTION WIDTH 14.6 % (11.5-14.5)
[2022-01-06 07:19] LABS: NEUTROPHILS % (AUTO) 89.2 % (40.0-70.0)
[2022-01-06 07:35] LABS: ALBUMIN 1.7 g/dL (3.4-5.0); BILIRUBIN,TOTAL 0.7 mg/dL (0.1-1.0); C-REACTIVE PROTEIN QUANT 18.95 mg/dL (0.00-0.30); CALCIUM, TOTAL 8.6 mg/dL (8.8-10.5); CREATININE 1.22 mg/dL (0.60-1.30); POTASSIUM 3.4 mmol/L (3.5-5.1); TOTAL PROTEIN, SERUM 6.5 g/dL (6.4-8.2)
[2022-01-06] MEDS: APIXABAN 5 MG TABLET PO SCH ×2 (08:57→20:44)
[2022-01-06] MEDS: PredniSONE 20 MG TABLET PO SCH (08:57)
[2022-01-06] MEDS: DILTIAZEM HCL CD 120 MG ER CAPSULE PO SCH ×2 (08:57→20:44)
[2022-01-06] MEDS: ATORVASTATIN CALCIUM 10 MG TABLET PO SCH (08:57)
[2022-01-06] MEDS: FAMOTIDINE 20 MG TABLET PO SCH (08:57)
[2022-01-06] MEDS: DOCUSATE SODIUM 100 MG CAPSULE PO SCH ×2 (08:57→20:43)
[2022-01-06] MEDS ORDERED: FUROSEMIDE 20 MG/2 ML VIAL IVP ONE (11:00)
[2022-01-06] MEDS ORDERED: INSULIN GLARGINE,HUM.REC.ANLOG 100 UNITS/ML SQ SCH (12:45)
[2022-01-06] MEDS ORDERED: INSULIN LISPRO 100 UNITS/ML SQ ONE ×2 (12:45→17:15)
[2022-01-06] MEDS: POTASSIUM CHLORIDE 20 MEQ ER TABLET PO PRN (12:55)
[2022-01-06] MEDS: AMIODARONE HCL 750 MG in DEXTROSE 5%-WATER 485 ML IV SCH (15:03)
[2022-01-06] MEDS: CefTRIAXone 1 GM/DEXTROSE 50 ML IV SCH (15:08)
[2022-01-06] MEDS ORDERED: SODIUM CHLORIDE 0.9% 250 ML IV ONE (15:14)
[2022-01-06] MEDS: AZITHROMYCIN 500 MG/NS 250 ML IV SCH (17:19)
[2022-01-06 20:11] LABS: GLUCOMETER DEV NAME(LOC) 5N.1C; GLUCOSE,POINT OF CARE 316 MG/DL (70-110)
[2022-01-06 20:11] LABS: GLUCOMETER DEV NAME(LOC) 5N.1C; GLUCOSE,POINT OF CARE 484 MG/DL (70-110)
[2022-01-06 20:12] LABS: GLUCOMETER DEV NAME(LOC) 5N.1C; GLUCOSE,POINT OF CARE 447 MG/DL (70-110)
[2022-01-06] MEDS: INSULIN GLARGINE,HUM.REC.ANLOG 100 UNITS/ML SQ SCH (20:49)
[2022-01-06 22:36] LABS: GLUCOMETER DEV NAME(LOC) 5S.2B; GLUCOSE,POINT OF CARE 300 MG/DL (70-110)
[2022-01-06] MEDS: ACETAMINOPHEN 325 MG TABLET PO PRN (23:15)
[2022-01-07 04:08] VITALS: BP 118/58
[2022-01-07] MEDS: INSULIN LISPRO 100 UNITS/ML SQ PRN ×4 (06:36→20:41)
[2022-01-07 07:24] VITALS: BP 134/81
[2022-01-07] MEDS: ATORVASTATIN CALCIUM 10 MG TABLET PO SCH (08:54)
[2022-01-07] MEDS: FAMOTIDINE 20 MG TABLET PO SCH (08:54)
[2022-01-07] MEDS: DOCUSATE SODIUM 100 MG CAPSULE PO SCH ×2 (08:54→20:27)
[2022-01-07] MEDS: DILTIAZEM HCL CD 120 MG ER CAPSULE PO SCH ×2 (08:54→20:27)
[2022-01-07] MEDS: APIXABAN 5 MG TABLET PO SCH ×2 (08:54→20:27)
[2022-01-07] MEDS: INSULIN GLARGINE,HUM.REC.ANLOG 100 UNITS/ML SQ SCH ×2 (08:57→20:39)
[2022-01-07 11:26] LABS: GLUCOMETER DEV NAME(LOC) 5S.2B; GLUCOSE,POINT OF CARE 219 MG/DL (70-110)
[2022-01-07 12:16] VITALS: BP 110/63
[2022-01-07 12:37] LABS: GLUCOMETER DEV NAME(LOC) 5S.2B; GLUCOSE,POINT OF CARE 194 MG/DL (70-110)
[2022-01-07] MEDS: METOPROLOL SUCCINATE 25 MG ER TABLET PO SCH (13:58)
[2022-01-07] MEDS: IBUPROFEN 400 MG TABLET PO PRN (15:04)
[2022-01-07] MEDS ORDERED: LIDOCAINE/PF 1% 5 ML VIAL ONE ×2 (15:31→15:54)
[2022-01-07 15:41] VITALS: BP 119/57
[2022-01-07 17:59] LABS: SPECIMENTYPE,BODY FLUID SYNOVIAL
[2022-01-07 19:42] VITALS: BP 132/79
[2022-01-07 20:11] LABS: GLUCOMETER DEV NAME(LOC) 5S.2B; GLUCOSE,POINT OF CARE 177 MG/DL (70-110)
[2022-01-07] MEDS: AMIODARONE HCL 200 MG TABLET PO SCH (20:27)
[2022-01-07] MEDS: COLCHICINE 0.6 MG TABLET PO SCH (20:27)
[2022-01-07] MEDS: MICONAZOLE NITRATE 2% 142 GM CREAM [BAZA] TP SCH (20:41)
[2022-01-07 21:01] LABS: TOTAL VOLUME,BODY FLUID 0.7 mL
[2022-01-07 21:02] LABS: WBC, BODY FLUID 289 /cu. mm.
[2022-01-07 21:03] LABS: BASOPHILS,BODY FLUID 0 %; EOSINOPHILS,BF (ANAL) 0 %; LYMPHOCYTES,BODY FLUID 10 %; MONOCYTES,BODY FLUID 10 %; NEUTROPHILS,BODY FLUID 80 %
[2022-01-07 21:04] LABS: CRYSTALS, SYNOVIAL FLUID Mono Urates - Many (None Seen)
[2022-01-07 21:05] LABS: APPEARANCE,SPUN,BODY FLUID TURBID (CLEAR)
[2022-01-08 00:10] VITALS: BP 105/79
[2022-01-08 02:41] LABS: GLUCOMETER DEV NAME(LOC) 5N.1C; GLUCOSE,POINT OF CARE 148 MG/DL (70-110)
[2022-01-08 04:30] VITALS: BP 120/65
[2022-01-08] MEDS: INSULIN LISPRO 100 UNITS/ML SQ PRN ×3 (05:49→20:44)
[2022-01-08 06:56] LABS: GLUCOMETER DEV NAME(LOC) 5N.1C; GLUCOSE,POINT OF CARE 151 MG/DL (70-110)
[2022-01-08 07:36] LABS: ALANINE AMINOTRANSFERASE 65 U/L (12-78); ALBUMIN 1.5 g/dL (3.4-5.0); ALKALINE PHOSPHATASE 95 U/L (46-116); ANION GAP 4 mmol/L (8-16); ASPARTATE AMINOTRANSFERASE 69 U/L (15-37); BILIRUBIN,TOTAL 0.9 mg/dL (0.1-1.0); C-REACTIVE PROTEIN QUANT 9.67 mg/dL (0.00-0.30); CARBON DIOXIDE 30 mmol/L (22-29); CHLORIDE 112 mmol/L (98-107); CREATININE 0.98 mg/dL (0.60-1.30); GLUCOSE,RANDOM 144 mg/dL (70-110); POTASSIUM 4.2 mmol/L (3.5-5.1); SODIUM SERUM 146 mmol/L (136-145); TOTAL PROTEIN, SERUM 5.9 g/dL (6.4-8.2); UREA NITROGEN, BLOOD 26 mg/dL (7-18)
[2022-01-08 07:38] LABS: GLOMERULAR FILTR. RATE CALC > 60 mL/min (>60)
[2022-01-08 07:49] VITALS: BP 132/72
[2022-01-08] MEDS: INSULIN GLARGINE,HUM.REC.ANLOG 100 UNITS/ML SQ SCH ×2 (09:00→20:48)
[2022-01-08] MEDS: MICONAZOLE NITRATE 2% 142 GM CREAM [BAZA] TP SCH ×2 (10:28→21:00)
[2022-01-08 11:17] LABS: BASOPHILS % (AUTO) 0.3 % (0.0-2.0); EOSINOPHILS % (AUTO) 0.1 % (1.0-6.0); HEMATOCRIT 39.3 % (41-53); HEMOGLOBIN 12.9 g/dL (13.5-17.5); LYMPHOCYTES # (AUTO) 1.2 K/uL (1.0-4.8); LYMPHOCYTES % (AUTO) 6.8 % (22.0-44.0); MEAN CORPUSCULAR HEMOGLOBIN 29.2 pg (26.0-34.0); MEAN CORPUSCULAR HGB CONC 32.9 G/dL (31.0-37.0); MEAN CORPUSCULAR VOLUME 89 fL (80-100); MONOCYTES % (AUTO) 5.4 % (2.0-9.0); NEUTROPHILS # (AUTO) 15.6 K/uL (1.8-7.7); PLATELET COUNT (AUTO) 391 K/uL (150-450); RED BLOOD CELL COUNT(AUTO) 4.43 MIL/uL (4.50-5.90); RED CELL DISTRIBUTION WIDTH 14.8 % (11.5-14.5)
[2022-01-08 11:23] VITALS: BP 128/70
[2022-01-08 11:24] LABS: NEUTROPHILS % (AUTO) 87.4 % (40.0-70.0)
[2022-01-08] MEDS: METOPROLOL SUCCINATE 25 MG ER TABLET PO SCH (11:29)
[2022-01-08] MEDS: DILTIAZEM HCL CD 120 MG ER CAPSULE PO SCH ×2 (11:30→20:50)
[2022-01-08] MEDS: FAMOTIDINE 20 MG TABLET PO SCH (11:30)
[2022-01-08] MEDS: COLCHICINE 0.6 MG TABLET PO SCH ×2 (11:30→20:50)
[2022-01-08] MEDS: ATORVASTATIN CALCIUM 10 MG TABLET PO SCH (11:30)
[2022-01-08] MEDS: AMIODARONE HCL 200 MG TABLET PO SCH ×2 (11:30→20:50)
[2022-01-08] MEDS: DOCUSATE SODIUM 100 MG CAPSULE PO SCH ×2 (11:30→20:50)
[2022-01-08] MEDS: APIXABAN 5 MG TABLET PO SCH ×2 (11:30→20:50)
[2022-01-08 16:18] VITALS: BP 134/75
[2022-01-08 20:03] VITALS: BP 135/72
[2022-01-08 20:11] LABS: GLUCOMETER DEV NAME(LOC) 5S.2B; GLUCOSE,POINT OF CARE 127 MG/DL (70-110)
[2022-01-08 20:12] LABS: GLUCOMETER DEV NAME(LOC) 5S.2B; GLUCOSE,POINT OF CARE 203 MG/DL (70-110)
[2022-01-09 00:52] VITALS: BP 111/78
[2022-01-09 05:32] VITALS: BP 118/71
[2022-01-09 08:00] VITALS: BP 151/72
[2022-01-09 08:01] LABS: GLUCOMETER DEV NAME(LOC) 5S.2B; GLUCOSE,POINT OF CARE 165 MG/DL (70-110)
[2022-01-09 08:01] LABS: GLUCOMETER DEV NAME(LOC) 5S.2B; GLUCOSE,POINT OF CARE 123 MG/DL (70-110)
[2022-01-09] MEDS: METOPROLOL SUCCINATE 25 MG ER TABLET PO SCH (08:42)
[2022-01-09] MEDS: APIXABAN 5 MG TABLET PO SCH ×2 (08:42→20:12)
[2022-01-09] MEDS: DOCUSATE SODIUM 100 MG CAPSULE PO SCH ×3 (08:42→20:12)
[2022-01-09] MEDS: AMIODARONE HCL 200 MG TABLET PO SCH ×3 (08:42→20:12)
[2022-01-09] MEDS: COLCHICINE 0.6 MG TABLET PO SCH ×2 (08:43→20:12)
[2022-01-09] MEDS: FAMOTIDINE 20 MG TABLET PO SCH (08:43)
[2022-01-09] MEDS: ATORVASTATIN CALCIUM 10 MG TABLET PO SCH (08:43)
[2022-01-09] MEDS: DILTIAZEM HCL CD 120 MG ER CAPSULE PO SCH ×3 (08:43→20:12)
[2022-01-09] MEDS: MICONAZOLE NITRATE 2% 142 GM CREAM [BAZA] TP SCH ×2 (08:44→20:36)
[2022-01-09] MEDS: INSULIN GLARGINE,HUM.REC.ANLOG 100 UNITS/ML SQ SCH ×2 (08:50→20:18)
[2022-01-09 09:01] LABS: GLUCOMETER DEV NAME(LOC) 5N.1C; GLUCOSE,POINT OF CARE 116 MG/DL (70-110)
[2022-01-09 11:36] LABS: GLUCOMETER DEV NAME(LOC) 5N.1C; GLUCOSE,POINT OF CARE 148 MG/DL (70-110)
[2022-01-09 11:37] VITALS: BP 131/68
[2022-01-09 16:00] VITALS: BP 115/83
[2022-01-09] MEDS ORDERED: DEXTROSE 5%-WATER 500 ML IV ONE (16:45)
[2022-01-09 19:31] LABS: ABG BASE EXCESS 11.6 mmol/L (-2.0-3.0); ABG CARBOXYHEMOGLOBIN 0.5 % (0.0-1.5); ABG METHEMOGLOBIN 0.2 % (0.0-1.5); ABG OXYGEN CONTENT 19.9 mL/dL (15.0-23.0); ABG OXYHEMOGLOBIN 95.3 % (94.0-100.0); ABG PCO2 45 mmHg (35-45); ABG PH 7.502 (7.35-7.450); ABG TOTAL HEMOGLOBIN 14.8 G/dL (12.0-18.0); O2 DEVICE,BLOOD GAS CANNULA (ROOM AIR); PO2, ARTERIAL BG 80.7 mmHg (71.0-79.0); SITE, BLOOD GAS LFT RADIAL; SOURCE, BLOOD GAS ARTERIAL; TEMPERATURE, FAHRENHEIT, BG 98.6 FAHREN (96.0-98.6)
[2022-01-09 20:13] VITALS: BP 125/78
[2022-01-09] MEDS: INSULIN LISPRO 100 UNITS/ML SQ PRN (20:19)
[2022-01-09 20:31] LABS: GLUCOMETER DEV NAME(LOC) 5S.2B; GLUCOSE,POINT OF CARE 154 MG/DL (70-110)
[2022-01-10] VITALS (7 sets, daily range): BP systolic 97–123; BP diastolic 53–75
[2022-01-10 06:14] LABS: BASOPHILS % (AUTO) 0.4 % (0.0-2.0); EOSINOPHILS % (AUTO) 0.2 % (1.0-6.0); HEMOGLOBIN 12.9 g/dL (13.5-17.5); LYMPHOCYTES # (AUTO) 1.4 K/uL (1.0-4.8); MEAN CORPUSCULAR HEMOGLOBIN 29.4 pg (26.0-34.0); MEAN CORPUSCULAR HGB CONC 32.4 G/dL (31.0-37.0); MEAN CORPUSCULAR VOLUME 91 fL (80-100); MONOCYTES # (AUTO) 0.7 K/uL (0.1-1.0); MONOCYTES % (AUTO) 3.8 % (2.0-9.0); NEUTROPHILS # (AUTO) 15.2 K/uL (1.8-7.7); PLATELET COUNT (AUTO) 373 K/uL (150-450); RED CELL DISTRIBUTION WIDTH 14.9 % (11.5-14.5)
[2022-01-10 06:29] LABS: ALBUMIN 1.6 g/dL (3.4-5.0); BILIRUBIN,TOTAL 0.9 mg/dL (0.1-1.0); C-REACTIVE PROTEIN QUANT 9.14 mg/dL (0.00-0.30); CALCIUM, TOTAL 7.8 mg/dL (8.8-10.5); CREATININE 1.22 mg/dL (0.60-1.30); POTASSIUM 3.3 mmol/L (3.5-5.1); TOTAL PROTEIN, SERUM 5.9 g/dL (6.4-8.2)
[2022-01-10 06:31] LABS: NEUTROPHILS % (AUTO) 87.6 % (40.0-70.0)
[2022-01-10] MEDS: INSULIN LISPRO 100 UNITS/ML SQ PRN (06:46)
[2022-01-10] MEDS: DOCUSATE SODIUM 100 MG CAPSULE PO SCH ×2 (09:00→20:33)
[2022-01-10] MEDS: METOPROLOL SUCCINATE 25 MG ER TABLET PO SCH (09:18)
[2022-01-10] MEDS: AMIODARONE HCL 200 MG TABLET PO SCH ×2 (09:18→20:33)
[2022-01-10] MEDS: DILTIAZEM HCL CD 120 MG ER CAPSULE PO SCH ×2 (09:19→20:33)
[2022-01-10] MEDS: APIXABAN 5 MG TABLET PO SCH ×2 (09:20→20:34)
[2022-01-10] MEDS: COLCHICINE 0.6 MG TABLET PO SCH ×2 (09:20→20:34)
[2022-01-10] MEDS: ATORVASTATIN CALCIUM 10 MG TABLET PO SCH (09:20)
[2022-01-10] MEDS: FAMOTIDINE 20 MG TABLET PO SCH (09:21)
[2022-01-10] MEDS: INSULIN GLARGINE,HUM.REC.ANLOG 100 UNITS/ML SQ SCH ×2 (09:32→20:38)
[2022-01-10] MEDS: MICONAZOLE NITRATE 2% 142 GM CREAM [BAZA] TP SCH ×2 (10:25→20:44)
[2022-01-10 10:31] LABS: GLUCOMETER DEV NAME(LOC) 5N.1C; GLUCOSE,POINT OF CARE 141 MG/DL (70-110)
[2022-01-10 10:31] LABS: GLUCOMETER DEV NAME(LOC) 5N.1C; GLUCOSE,POINT OF CARE 159 MG/DL (70-110)
[2022-01-10 10:31] LABS: GLUCOMETER DEV NAME(LOC) 5N.1C; GLUCOSE,POINT OF CARE 177 MG/DL (70-110)
[2022-01-10 11:57] LABS: GLUCOMETER DEV NAME(LOC) 5S.2B; GLUCOSE,POINT OF CARE 137 MG/DL (70-110)
[2022-01-10] MEDS ORDERED: DEXTROSE 5%-WATER 1,000 ML IV ONE (13:15)
[2022-01-10] MEDS: POTASSIUM CHL 10 MEQ/WATER 50 ML IV PRN ×3 (13:36→17:30)
[2022-01-10 20:01] LABS: GLUCOMETER DEV NAME(LOC) 5N.1C; GLUCOSE,POINT OF CARE 118 MG/DL (70-110)
[2022-01-11 01:31] LABS: GLUCOMETER DEV NAME(LOC) 5S.2B; GLUCOSE,POINT OF CARE 125 MG/DL (70-110)
[2022-01-11 04:45] VITALS: BP 93/69
[2022-01-11 06:37] LABS: CALCIUM, TOTAL 8.3 mg/dL (8.8-10.5); CREATININE 1.17 mg/dL (0.60-1.30); POTASSIUM 3.7 mmol/L (3.5-5.1)
[2022-01-11] MEDS: INSULIN LISPRO 100 UNITS/ML SQ PRN (06:38)
[2022-01-11 07:12] LABS: GLUCOMETER DEV NAME(LOC) 5N.1C; GLUCOSE,POINT OF CARE 142 MG/DL (70-110)
[2022-01-11 07:43] VITALS: BP 99/73
[2022-01-11] MEDS: COLCHICINE 0.6 MG TABLET PO SCH ×2 (07:47→20:56)
[2022-01-11] MEDS: DOCUSATE SODIUM 100 MG CAPSULE PO SCH ×2 (07:47→20:59)
[2022-01-11] MEDS: APIXABAN 5 MG TABLET PO SCH ×2 (07:47→20:56)
[2022-01-11] MEDS: ATORVASTATIN CALCIUM 10 MG TABLET PO SCH (07:47)
[2022-01-11] MEDS: FAMOTIDINE 20 MG TABLET PO SCH (07:47)
[2022-01-11] MEDS: METOPROLOL SUCCINATE 25 MG ER TABLET PO SCH (07:49)
[2022-01-11] MEDS: INSULIN GLARGINE,HUM.REC.ANLOG 100 UNITS/ML SQ SCH ×2 (07:49→20:59)
[2022-01-11] MEDS: MICONAZOLE NITRATE 2% 142 GM CREAM [BAZA] TP SCH ×2 (07:54→20:57)
[2022-01-11] MEDS: DILTIAZEM HCL CD 120 MG ER CAPSULE PO SCH ×2 (07:54→20:55)
[2022-01-11] MEDS: AMIODARONE HCL 200 MG TABLET PO SCH ×2 (07:54→20:56)
[2022-01-11 10:57] VITALS: BP 126/66
[2022-01-11] MEDS: DEXTROSE 5%-WATER 1,000 ML IV SCH (13:12)
[2022-01-11 15:52] VITALS: BP 107/62
[2022-01-11 18:06] LABS: GLUCOMETER DEV NAME(LOC) 5N.1C; GLUCOSE,POINT OF CARE 118 MG/DL (70-110)
[2022-01-11 18:06] LABS: GLUCOMETER DEV NAME(LOC) 5N.1C; GLUCOSE,POINT OF CARE 128 MG/DL (70-110)
[2022-01-11 20:08] VITALS: BP 124/64
[2022-01-12] VITALS (7 sets, daily range): BP systolic 99–122; BP diastolic 54–60
[2022-01-12 06:20] LABS: BASOPHILS % (AUTO) 0.5 % (0.0-2.0); EOSINOPHILS % (AUTO) 0.8 % (1.0-6.0); HEMATOCRIT 40.9 % (41-53); HEMOGLOBIN 13.1 g/dL (13.5-17.5); LYMPHOCYTES # (AUTO) 1.1 K/uL (1.0-4.8); LYMPHOCYTES % (AUTO) 8.5 % (22.0-44.0); MEAN CORPUSCULAR HEMOGLOBIN 28.9 pg (26.0-34.0); MEAN CORPUSCULAR HGB CONC 31.9 G/dL (31.0-37.0); MEAN CORPUSCULAR VOLUME 91 fL (80-100); MONOCYTES # (AUTO) 0.3 K/uL (0.1-1.0); MONOCYTES % (AUTO) 2.6 % (2.0-9.0); NEUTROPHILS # (AUTO) 11.1 K/uL (1.8-7.7); PLATELET COUNT (AUTO) 306 K/uL (150-450); RED BLOOD CELL COUNT(AUTO) 4.51 MIL/uL (4.50-5.90); RED CELL DISTRIBUTION WIDTH 15.1 % (11.5-14.5)
[2022-01-12 06:23] LABS: CALCIUM, TOTAL 7.8 mg/dL (8.8-10.5); CREATININE 1.2 mg/dL (0.60-1.30); POTASSIUM 3.4 mmol/L (3.5-5.1)
[2022-01-12 06:37] LABS: NEUTROPHILS % (AUTO) 87.6 % (40.0-70.0)
[2022-01-12] MEDS: AMIODARONE HCL 200 MG TABLET PO SCH ×2 (07:54→20:38)
[2022-01-12] MEDS: METOPROLOL SUCCINATE 25 MG ER TABLET PO SCH (07:54)
[2022-01-12] MEDS: ATORVASTATIN CALCIUM 10 MG TABLET PO SCH (07:54)
[2022-01-12] MEDS: APIXABAN 5 MG TABLET PO SCH ×2 (07:54→20:38)
[2022-01-12] MEDS: FAMOTIDINE 20 MG TABLET PO SCH (07:54)
[2022-01-12] MEDS: POTASSIUM CHLORIDE 20 MEQ ER TABLET PO PRN (07:54)
[2022-01-12] MEDS: DEXTROSE 5%-WATER 1,000 ML IV SCH (07:55)
[2022-01-12] MEDS: DOCUSATE SODIUM 100 MG CAPSULE PO SCH ×2 (07:56→20:34)
[2022-01-12] MEDS: DILTIAZEM HCL CD 120 MG ER CAPSULE PO SCH ×2 (07:57→20:36)
[2022-01-12] MEDS: COLCHICINE 0.6 MG TABLET PO SCH ×2 (07:57→20:38)
[2022-01-12] MEDS: MICONAZOLE NITRATE 2% 142 GM CREAM [BAZA] TP SCH ×2 (08:06→21:04)
[2022-01-12] MEDS: INSULIN GLARGINE,HUM.REC.ANLOG 100 UNITS/ML SQ SCH ×2 (08:07→20:35)
[2022-01-12 08:48] LABS: GLUCOMETER DEV NAME(LOC) 5S.2B; GLUCOSE,POINT OF CARE 139 MG/DL (70-110)
[2022-01-12] MEDS ORDERED: WATER FOR INJECTION,STERILE 500 ML in DEXTROSE 5%-WATER 500 ML IV ONE (12:00)
[2022-01-12 18:31] LABS: GLUCOMETER DEV NAME(LOC) 5N.1C; GLUCOSE,POINT OF CARE 95 MG/DL (70-110)
[2022-01-12 18:31] LABS: GLUCOMETER DEV NAME(LOC) 5N.1C; GLUCOSE,POINT OF CARE 99 MG/DL (70-110)
[2022-01-13 04:23] VITALS: BP 109/57
[2022-01-13 06:28] LABS: CALCIUM, TOTAL 7.7 mg/dL (8.8-10.5); CREATININE 1.37 mg/dL (0.60-1.30); POTASSIUM 3.7 mmol/L (3.5-5.1)
[2022-01-13 07:11] LABS: GLUCOMETER DEV NAME(LOC) 5S.2B; GLUCOSE,POINT OF CARE 115 MG/DL (70-110)
[2022-01-13 07:46] VITALS: BP 110/62
[2022-01-13] MEDS: DOCUSATE SODIUM 100 MG CAPSULE PO SCH (09:00)
[2022-01-13] MEDS: COLCHICINE 0.6 MG TABLET PO SCH (09:31)
[2022-01-13] MEDS: ATORVASTATIN CALCIUM 10 MG TABLET PO SCH (09:32)
[2022-01-13] MEDS: APIXABAN 5 MG TABLET PO SCH (09:32)
[2022-01-13] MEDS: DILTIAZEM HCL CD 120 MG ER CAPSULE PO SCH (09:32)
[2022-01-13] MEDS: METOPROLOL SUCCINATE 25 MG ER TABLET PO SCH (09:32)
[2022-01-13] MEDS: AMIODARONE HCL 200 MG TABLET PO SCH (09:33)
[2022-01-13] MEDS: FAMOTIDINE 20 MG TABLET PO SCH (09:33)
[2022-01-13] MEDS: MICONAZOLE NITRATE 2% 142 GM CREAM [BAZA] TP SCH (09:39)
[2022-01-13] MEDS: INSULIN GLARGINE,HUM.REC.ANLOG 100 UNITS/ML SQ SCH (09:46)
[2022-01-13 11:05] VITALS: BP 94/48
[2022-01-13] MEDS: INSULIN LISPRO 100 UNITS/ML SQ PRN (12:06)
[2022-01-13] MEDS ORDERED: PredniSONE 20 MG TABLET PO SCH (12:30)
[2022-01-13] MEDS ORDERED: MEGESTROL ACETATE 400 MG/10 ML SUSPENSION UDCUP PO SCH (13:00)
[2022-01-13 13:16] LABS: GLUCOMETER DEV NAME(LOC) 5S.2B; GLUCOSE,POINT OF CARE 202 MG/DL (70-110)
[2022-01-13 15:04] VITALS: BP 102/51
[2022-01-13 20:40] VITALS: BP 97/52
[2022-01-14 18:06] LABS: GLUCOMETER DEV NAME(LOC) 5N.3; GLUCOSE,POINT OF CARE 87 MG/DL (70-110)
[2022-01-14 18:06] LABS: GLUCOMETER DEV NAME(LOC) 5N.3; GLUCOSE,POINT OF CARE 97 MG/DL (70-110)
== END 2022-01-13 21:00 | DRG 871 ==
LOC: EMS 16:24 → 5S 18:43
PROVIDERS: ADMIT Internal Medicine; ATTEND Internal Medicine
PROC: 0W9G3ZZ Drainage of Peritoneal Cavity, Percutaneous Approach (ICD-10-PCS; principal; 2022-01-07)
PROC: 05HY33Z Insertion of Infusion Device into Upper Vein, Percutaneous Approach (ICD-10-PCS; 2022-01-13)
DX: A41.9 Sepsis, unspecified organism (principal); G92.8 Other toxic encephalopathy; J18.9 Pneumonia, unspecified organism; I50.32 Chronic diastolic (congestive) heart failure; N39.0 Urinary tract infection, site not specified; E87.1 Hypo-osmolality and hyponatremia; E87.0 Hyperosmolality and hypernatremia; I48.92 Unspecified atrial flutter; J44.0 Chronic obstructive pulmonary disease with (acute) lower respiratory infection; J96.11 Chronic respiratory failure with hypoxia; I11.0 Hypertensive heart disease with heart failure; E11.65 Type 2 diabetes mellitus with hyperglycemia; E11.40 Type 2 diabetes mellitus with diabetic neuropathy, unspecified; E78.00 Pure hypercholesterolemia, unspecified; I48.0 Paroxysmal atrial fibrillation; I49.3 Ventricular premature depolarization; L30.9 Dermatitis, unspecified; M10.9 Gout, unspecified; N40.0 Benign prostatic hyperplasia without lower urinary tract symptoms; R32 Unspecified urinary incontinence; M25.462 Effusion, left knee; R65.20 Severe sepsis without septic shock; Z20.822 Contact with and (suspected) exposure to COVID-19; Z79.01 Long term (current) use of anticoagulants; Z79.4 Long term (current) use of insulin; Z87.891 Personal history of nicotine dependence; Z99.81 Dependence on supplemental oxygen; Z79.899 Other long term (current) drug therapy; Z88.8 Allergy status to other drugs, medicaments and biological substances
CPT/HCPCS: 36245; 36569; 36600; 70450; 70551; 71045; 71275; 75989; 76881; 76937; 78806; 80048; 80053; 80061; 81001; 82140; 82728; 82805; 82962; 83036; 83605; 83735; 84132; 84145; 84484; 84550; 84560; 85025; 85379; 85610; 85730; 86140; 86592; 87040; 87075; 87205; 87804; 88112; 88305; 89051; 89060; 92526; 92610; 93005; 93306; 94640; 97110; 97162; 97167; 97530; 97535; 99285; A9547; G0378; J0282; J0456; J0696; J1160; J1644; J1815; J1940; J2001; J3480; J3490; J7030; J7040; J7050; J7060; Q9967; 36415-L1; 36415-TC; 87070; J7613; U0003

== ENCOUNTER 2022-01-18 05:43 | Inpatient (IN) | payer MEDICARE, OTHER ==
[~2022-01-18] VITALS: Ht 170.2 cm; Wt 70.1 kg
[2022-01-18] MEDS ORDERED: ETOMIDATE 2 MG/ML 10 ML VIAL ONE (06:01)
[2022-01-18] MEDS ORDERED: ROCURONIUM BROMIDE 10 MG/ML 5 ML VIAL ONE (06:02)
[2022-01-18] MEDS ORDERED: NOREPINEPHRINE 8 MG/D5%-WATER 250 ML IV PRN (06:15)
[2022-01-18] MEDS ORDERED: VANCOMYCIN 1GM/WATER(PEG/NADA) 200 ML IV ONE (06:15)
[2022-01-18] MEDS ORDERED: PIPERACILLIN/TAZO 3.375 GM/D5W 50 ML IV ONE (06:15)
[2022-01-18] MEDS ORDERED: SODIUM CHLORIDE 0.9% 3,000 ML IV ONE (06:15)
[2022-01-18] MEDS ORDERED: 0.9% SODIUM CHLORIDE 10 ML SYRINGE IVP PRN (06:15)
[2022-01-18] MEDS ORDERED: ETOMIDATE 2 MG/ML 10 ML VIAL IVP ONE (06:30)
[2022-01-18] MEDS ORDERED: ROCURONIUM BROMIDE 10 MG/ML 5 ML VIAL IVP ONE (06:30)
[2022-01-18 06:31] LABS: BASOPHILS % (AUTO) 0.5 % (0.0-2.0); EOSINOPHILS % (AUTO) 0.5 % (1.0-6.0); HEMATOCRIT 37.5 % (41-53); HEMOGLOBIN 12.1 g/dL (13.5-17.5); LYMPHOCYTES % (AUTO) 15.8 % (22.0-44.0); MEAN CORPUSCULAR HEMOGLOBIN 29.2 pg (26.0-34.0); MEAN CORPUSCULAR HGB CONC 32.2 G/dL (31.0-37.0); MEAN CORPUSCULAR VOLUME 91 fL (80-100); MONOCYTES # (AUTO) 0.3 K/uL (0.1-1.0); MONOCYTES % (AUTO) 4.3 % (2.0-9.0); NEUTROPHILS # (AUTO) 5.2 K/uL (1.8-7.7); NEUTROPHILS % (AUTO) 78.9 % (40.0-70.0); PLATELET COUNT (AUTO) 180 K/uL (150-450); RED BLOOD CELL COUNT(AUTO) 4.13 MIL/uL (4.50-5.90); RED CELL DISTRIBUTION WIDTH 15.1 % (11.5-14.5)
[2022-01-18] MEDS ORDERED: DOPamine 400MG/D5W[STANDARD] 250 ML IV PRN (06:45)
[2022-01-18 06:54] LABS: LACTIC ACID 2.2 mmol/L (0.4-2.0)
[2022-01-18 06:55] LABS: ANION GAP 12 mmol/L (8-16); CALCIUM, TOTAL 7.3 mg/dL (8.8-10.5); CARBON DIOXIDE 28 mmol/L (22-29); CHLORIDE 110 mmol/L (98-107); CREATININE 2.93 mg/dL (0.60-1.30); GLUCOSE,RANDOM 89 mg/dL (70-110); POTASSIUM 4.5 mmol/L (3.5-5.1); SODIUM SERUM 150 mmol/L (136-145); UREA NITROGEN, BLOOD 63 mg/dL (7-18)
[2022-01-18 07:04] LABS: D-DIMER 0.7 mg/L FEU (0.00-0.50); INR 2.5 (0.9-1.1); PROTHROMBIN TIME 25.2 SEC (9.4-11.6)
[2022-01-18 07:20] LABS: ALANINE AMINOTRANSFERASE 157 U/L (12-78); ALBUMIN 1.9 g/dL (3.4-5.0); ALKALINE PHOSPHATASE 114 U/L (46-116); ASPARTATE AMINOTRANSFERASE 159 U/L (15-37); BILIRUBIN,TOTAL 0.6 mg/dL (0.1-1.0); CREATINE KINASE, TOTAL ONLY 432 U/L (39-308); TOTAL PROTEIN, SERUM 5.6 g/dL (6.4-8.2)
[2022-01-18 07:21] LABS: COVID AG,FIA SOURCE NASOPHARYNGEAL
[2022-01-18 07:21] LABS: GLOMERULAR FILTR. RATE CALC 20 mL/min (>60)
[2022-01-18 07:21] LABS: APPEARANCE,URINE TURBID (CLEAR); BILIRUBIN,URINE NEGATIVE (NEGATIVE); GLUCOSE, URINE (UA) NEGATIVE (NEGATIVE); KETONES,URINE NEGATIVE (NEGATIVE); LEUKOCYTE ESTERASE ,URINE MODERATE (NEGATIVE); NITRATE,URINE NEGATIVE (NEGATIVE); OCCULT BLOOD,URINE LARGE (NEGATIVE); PH,URINE 5.5 (5.0-8.0); PROTEIN,URINE 100-200,SEE CONFIRM mg/dL (NEGATIVE); SPECIFIC GRAVITIY, URINE 1.022 (1.003-1.030); UROBILINOGEN,URINE <=1.0 mg/dL (<=1.0)
[2022-01-18 07:27] LABS: B-TYPE NATRIURETIC PEPTIDE 4120 pg/mL (0-100)
[2022-01-18 07:39] LABS: INFLUENZA TYPE A NEGATIVE FOR TYPE A (NEGATIVE); INFLUENZA TYPE B NEGATIVE FOR TYPE B (NEGATIVE)
[2022-01-18 07:46] LABS: ABG BASE EXCESS -1.9 mmol/L (-2.0-3.0); ABG CARBOXYHEMOGLOBIN 0.3 % (0.0-1.5); ABG METHEMOGLOBIN 0.4 % (0.0-1.5); ABG OXYGEN CONTENT 17.4 mL/dL (15.0-23.0); ABG OXYGEN SATURATION 99.1 % (95.0-98.0); ABG OXYHEMOGLOBIN 98.4 % (94.0-100.0); ABG PCO2 44 mmHg (35-45); ABG PH 7.352 (7.35-7.450); PO2, ARTERIAL BG 309.6 mmHg (71.0-79.0); SITE, BLOOD GAS LFT RADIAL; SOURCE, BLOOD GAS ARTERIAL; TEMPERATURE, FAHRENHEIT, BG 99.9 FAHREN (96.0-98.6)
[2022-01-18 07:47] LABS: ABG A-A DIFF O2 357.8 mmHg (10-20.0); O2 DEVICE,BLOOD GAS VENTILATOR (ROOM AIR); PEEP,BG 5 cm H2O; SPONTANEOUS VT, BG 577 ml; VT, ABG 450 ml
[2022-01-18 07:55] LABS: SULFOSALICYLIC ACID,URINE 3+ (Negative)
[2022-01-18 07:56] LABS: BACTERIA,URINE Moderate /HPF (None Seen); RBC,URINE 51-100 /HPF (0-2); YEAST,URINE Many /HPF (None Seen)
[2022-01-18] MEDS ORDERED: ONDANSETRON HCL 4 MG/2 ML VIAL IVP PRN ×2 (08:30→09:15)
[2022-01-18] MEDS ORDERED: ACETAMINOPHEN 325 MG TABLET PO PRN (08:30)
[2022-01-18] MEDS ORDERED: ACETAMINOPHEN 1000 MG/ISO-OSM 100 ML IV PRN (08:45)
[2022-01-18] MEDS ORDERED: ZOLPIDEM TARTRATE 5 MG TABLET PO PRN (09:15)
[2022-01-18] MEDS ORDERED: BISACODYL 10 MG RECTAL RECTAL SUPPOSITORY PR PRN (09:15)
[2022-01-18] MEDS ORDERED: MAGNESIUM HYDROXIDE SUSPENSION 30 ML UDCUP PO PRN (09:15)
[2022-01-18] MEDS ORDERED: PHENYLEPHRINE HCL 400 MG in DEXTROSE 5%-WATER 210 ML IV PRN (10:30)
[2022-01-18] MEDS ORDERED: PANTOPRAZOLE SODIUM 40 MG/VIAL IVP ONE (10:30)
[2022-01-18] MEDS ORDERED: PANTOPRAZOLE SODIUM 80 MG in SODIUM CHLORIDE 0.9% 100 ML IV SCH (11:00)
[2022-01-18] MEDS ORDERED: *CLINICAL-MEROPENEM DOSING CLINICAL ONE (11:00)
[2022-01-18] MEDS ORDERED: PIPERACILLIN SODIUM/TAZOBACTAM 2.25 GM in DEXTROSE 5%-WATER 50 ML IV SCH (12:00)
[2022-01-18] MEDS: MEROPENEM 500 MG in SODIUM CHLORIDE 0.9% 50 ML IV SCH (12:16)
[2022-01-18 14:11] LABS: GLUCOMETER DEV NAME(LOC) ERT.5; GLUCOSE,POINT OF CARE 89 MG/DL (70-110)
[2022-01-18] MEDS ORDERED: HEPARIN SODIUM,PORCINE 5,000 UNITS/ML VIAL SQ SCH (16:00)
[2022-01-18 20:00] VITALS: BP 108/51
[2022-01-18] MEDS: RINGERS SOLUTION,LACTATED 1,000 ML IV SCH (20:03)
[2022-01-18] MEDS: FINASTERIDE 5 MG TABLET PO SCH (20:29)
[2022-01-18] MEDS: DOCUSATE SODIUM 100 MG CAPSULE PO SCH (20:29)
[2022-01-18] MEDS: SIMVASTATIN 20 MG TABLET PO SCH (20:29)
[2022-01-18] MEDS: MORPHINE SULFATE 2 MG/ML SYRINGE IVP PRN (20:33)
[2022-01-18] MEDS: NOREPINEPHRINE 8 MG/D5%-WATER 250 ML IV PRN (21:06)
[2022-01-18 21:57] LABS: BASOPHILS % (AUTO) 0.5 % (0.0-2.0); EOSINOPHILS % (AUTO) 0.1 % (1.0-6.0); HEMATOCRIT 34.4 % (41-53); HEMOGLOBIN 11.3 g/dL (13.5-17.5); LYMPHOCYTES # (AUTO) 0.7 K/uL (1.0-4.8); LYMPHOCYTES % (AUTO) 12.2 % (22.0-44.0); MEAN CORPUSCULAR HEMOGLOBIN 29.4 pg (26.0-34.0); MEAN CORPUSCULAR HGB CONC 32.8 G/dL (31.0-37.0); MEAN CORPUSCULAR VOLUME 89 fL (80-100); MONOCYTES # (AUTO) 0.1 K/uL (0.1-1.0); MONOCYTES % (AUTO) 1.4 % (2.0-9.0); NEUTROPHILS # (AUTO) 4.6 K/uL (1.8-7.7); PLATELET COUNT (AUTO) 144 K/uL (150-450); RED BLOOD CELL COUNT(AUTO) 3.84 MIL/uL (4.50-5.90); RED CELL DISTRIBUTION WIDTH 14.6 % (11.5-14.5)
[2022-01-18 21:59] LABS: NEUTROPHILS % (AUTO) 85.8 % (40.0-70.0)
[2022-01-18] MEDS ORDERED: PNEUMOCOCCAL VACCINE POLYVALENT 0.5 ML VIAL [PPSV23] IM. ONE (23:45)
[2022-01-19] VITALS: BP 107/50
[2022-01-19] MEDS: MEROPENEM 500 MG in SODIUM CHLORIDE 0.9% 50 ML IV SCH ×2 (00:02→12:01)
[2022-01-19] MEDS ORDERED: SODIUM CHLORIDE 0.9% 250 ML IV ONE (00:05)
[2022-01-19] MEDS: NOREPINEPHRINE 8 MG/D5%-WATER 250 ML IV PRN ×3 (02:00→20:34)
[2022-01-19 04:00] VITALS: BP 101/59
[2022-01-19 06:00] LABS: BASOPHILS % (AUTO) 0.4 % (0.0-2.0); EOSINOPHILS % (AUTO) 0.4 % (1.0-6.0); HEMATOCRIT 33.6 % (41-53); HEMOGLOBIN 11.2 g/dL (13.5-17.5); LYMPHOCYTES # (AUTO) 0.5 K/uL (1.0-4.8); LYMPHOCYTES % (AUTO) 13.8 % (22.0-44.0); MEAN CORPUSCULAR HEMOGLOBIN 29.7 pg (26.0-34.0); MEAN CORPUSCULAR HGB CONC 33.3 G/dL (31.0-37.0); MEAN CORPUSCULAR VOLUME 89 fL (80-100); MONOCYTES # (AUTO) 0.1 K/uL (0.1-1.0); MONOCYTES % (AUTO) 2.6 % (2.0-9.0); NEUTROPHILS % (AUTO) 82.8 % (40.0-70.0); PLATELET COUNT (AUTO) 108 K/uL (150-450); RED BLOOD CELL COUNT(AUTO) 3.77 MIL/uL (4.50-5.90); RED CELL DISTRIBUTION WIDTH 14.7 % (11.5-14.5)
[2022-01-19 06:06] LABS: ALBUMIN 1.6 g/dL (3.4-5.0); BILIRUBIN,TOTAL 0.9 mg/dL (0.1-1.0); C-REACTIVE PROTEIN QUANT 6.53 mg/dL (0.00-0.30); CALCIUM, TOTAL 6.9 mg/dL (8.8-10.5); CREATININE 2.38 mg/dL (0.60-1.30); POTASSIUM 3.3 mmol/L (3.5-5.1); TOTAL PROTEIN, SERUM 5.1 g/dL (6.4-8.2); VANCOMYCIN,RANDOM 11.6 mcg/mL (25.0-50.0)
[2022-01-19] MEDS: MORPHINE SULFATE 2 MG/ML SYRINGE IVP PRN ×2 (06:24→23:21)
[2022-01-19 08:00] VITALS: BP 96/49
[2022-01-19] MEDS ORDERED: PANTOPRAZOLE SODIUM 40 MG/VIAL IVP SCH (09:00)
[2022-01-19] MEDS ORDERED: PANTOPRAZOLE SODIUM 40 MG DR TABLET PO SCH (09:00)
[2022-01-19] MEDS: MONTELUKAST SODIUM 10 MG TABLET PO SCH (09:07)
[2022-01-19] MEDS: DOCUSATE SODIUM 100 MG CAPSULE PO SCH ×2 (09:07→21:00)
[2022-01-19] MEDS: EZETIMIBE 10 MG TABLET PO SCH (09:07)
[2022-01-19] MEDS: ACETAMINOPHEN 325 MG TABLET PO PRN ×2 (09:08→20:33)
[2022-01-19] MEDS: PANTOPRAZOLE SODIUM 40 MG/VIAL IVP SCH (09:08)
[2022-01-19] MEDS: RINGERS SOLUTION,LACTATED 1,000 ML IV SCH (09:10)
[2022-01-19 12:00] VITALS: BP 99/56
[2022-01-19 12:40] LABS: MAGNESIUM 2.4 mg/dL (1.80-2.40); PHOSPHORUS 4.1 mg/dL (2.5-4.9)
[2022-01-19 16:00] VITALS: BP 110/53
[2022-01-19] MEDS: POTASSIUM CHL 10 MEQ/WATER 50 ML IV SCH ×2 (16:16→17:15)
[2022-01-19] MEDS: DEXTROSE 5%-WATER 1,000 ML IV SCH (18:09)
[2022-01-19 20:00] VITALS: BP 100/49
[2022-01-19] MEDS: SIMVASTATIN 20 MG TABLET PO SCH (20:34)
[2022-01-19] MEDS: FINASTERIDE 5 MG TABLET PO SCH (20:35)
[2022-01-20] VITALS: BP 110/54
[2022-01-20] MEDS: HYDROCODONE/ACETAMINOPHEN 5-325 MG TABLET PO PRN (00:23)
[2022-01-20] MEDS: MEROPENEM 500 MG in SODIUM CHLORIDE 0.9% 50 ML IV SCH ×2 (00:23→11:03)
[2022-01-20 04:00] VITALS: BP 124/51
[2022-01-20 05:46] LABS: BASOPHILS % (AUTO) 0.3 % (0.0-2.0); EOSINOPHILS % (AUTO) 2.6 % (1.0-6.0); HEMATOCRIT 30.8 % (41-53); HEMOGLOBIN 10.4 g/dL (13.5-17.5); LYMPHOCYTES # (AUTO) 0.3 K/uL (1.0-4.8); MEAN CORPUSCULAR HEMOGLOBIN 30.1 pg (26.0-34.0); MEAN CORPUSCULAR HGB CONC 33.9 G/dL (31.0-37.0); MEAN CORPUSCULAR VOLUME 89 fL (80-100); MONOCYTES # (AUTO) 0.1 K/uL (0.1-1.0); MONOCYTES % (AUTO) 4.1 % (2.0-9.0); NEUTROPHILS # (AUTO) 2.4 K/uL (1.8-7.7); PLATELET COUNT (AUTO) 69 K/uL (150-450); RED BLOOD CELL COUNT(AUTO) 3.47 MIL/uL (4.50-5.90); RED CELL DISTRIBUTION WIDTH 14.6 % (11.5-14.5)
[2022-01-20 05:56] LABS: ALBUMIN 1.4 g/dL (3.4-5.0); BILIRUBIN,TOTAL 1.1 mg/dL (0.1-1.0); C-REACTIVE PROTEIN QUANT 19.04 mg/dL (0.00-0.30); CALCIUM, TOTAL 7.4 mg/dL (8.8-10.5); CREATININE 1.76 mg/dL (0.60-1.30); POTASSIUM 3.7 mmol/L (3.5-5.1)
[2022-01-20] MEDS ORDERED: PROPOFOL 1% 20 ML VIAL IVP ONE (06:44)
[2022-01-20] MEDS ORDERED: LIDOCAINE/PF 2% 5 ML SYRINGE IVP ONE (06:44)
[2022-01-20 08:00] VITALS: BP 118/46
[2022-01-20] MEDS: DEXTROSE 5%-WATER 1,000 ML IV SCH (08:07)
[2022-01-20] MEDS: PANTOPRAZOLE SODIUM 40 MG/VIAL IVP SCH (08:07)
[2022-01-20] MEDS: EZETIMIBE 10 MG TABLET PO SCH (08:08)
[2022-01-20] MEDS: MONTELUKAST SODIUM 10 MG TABLET PO SCH (08:08)
[2022-01-20] MEDS: DOCUSATE SODIUM 100 MG CAPSULE PO SCH ×2 (08:08→21:00)
[2022-01-20 10:57] LABS: GLUCOSE,POINT OF CARE 236 MG/DL (70-110)
[2022-01-20] MEDS: SODIUM CHLORIDE 0.9% 1,000 ML IV SCH (11:03)
[2022-01-20] MEDS: ALBUMIN HUMAN 25%-12.5GM/50ML 50 ML IV SCH ×3 (11:04→22:22)
[2022-01-20] MEDS: INSULIN LISPRO 100 UNITS/ML SQ PRN ×2 (11:21→17:45)
[2022-01-20] MEDS ORDERED: DEXTROSE 50%-WATER 25 GM/50 ML SYRINGE IVP PRN (11:30)
[2022-01-20 12:00] VITALS: BP 119/44
[2022-01-20] MEDS ORDERED: CASPOFUNGIN ACETATE 70 MG in SODIUM CHLORIDE 0.9% 250 ML IV ONE (15:00)
[2022-01-20 16:00] VITALS: BP 120/45
[2022-01-20 16:21] LABS: GLUCOSE,POINT OF CARE 232 MG/DL (70-110)
[2022-01-20] MEDS ORDERED: VANCOMYCIN HCL 750 MG in DEXTROSE 5%-WATER 250 ML IV ONE (17:00)
[2022-01-20] MEDS: NOREPINEPHRINE 8 MG/D5%-WATER 250 ML IV PRN ×2 (19:05→21:01)
[2022-01-20 20:00] VITALS: BP 133/44
[2022-01-20] MEDS: SIMVASTATIN 20 MG TABLET PO SCH (20:42)
[2022-01-20] MEDS: FINASTERIDE 5 MG TABLET PO SCH (20:42)
[2022-01-20 21:26] LABS: GLUCOSE,POINT OF CARE 141 MG/DL (70-110)
[2022-01-20] MEDS: MEROPENEM 1 GM in SODIUM CHLORIDE 0.9% 100 ML IV SCH (23:20)
[2022-01-20] MEDS ORDERED: SODIUM CHLORIDE 0.9% 250 ML IV ONE (23:39)
[2022-01-20] MEDS ORDERED: SODIUM CHLORIDE 0.9% 500 ML IV ONE (23:39)
[2022-01-21] VITALS: BP 118/45
[2022-01-21] MEDS: SODIUM CHLORIDE 0.9% 1,000 ML IV SCH ×2 (01:10→12:42)
[2022-01-21 04:00] VITALS: BP 122/44
[2022-01-21] MEDS: ACETAMINOPHEN 325 MG TABLET PO PRN (04:33)
[2022-01-21] MEDS: ALBUMIN HUMAN 25%-12.5GM/50ML 50 ML IV SCH ×4 (04:33→23:48)
[2022-01-21] MEDS: INSULIN LISPRO 100 UNITS/ML SQ PRN ×2 (05:19→12:19)
[2022-01-21 06:01] LABS: GLUCOSE,POINT OF CARE 164 MG/DL (70-110)
[2022-01-21 06:18] LABS: BASOPHILS % (AUTO) 0.3 % (0.0-2.0); EOSINOPHILS % (AUTO) 0.7 % (1.0-6.0); HEMATOCRIT 24.6 % (41-53); HEMOGLOBIN 8.3 g/dL (13.5-17.5); LYMPHOCYTES # (AUTO) 0.4 K/uL (1.0-4.8); MEAN CORPUSCULAR HEMOGLOBIN 30.1 pg (26.0-34.0); MEAN CORPUSCULAR HGB CONC 33.9 G/dL (31.0-37.0); MEAN CORPUSCULAR VOLUME 89 fL (80-100); MONOCYTES # (AUTO) 0.2 K/uL (0.1-1.0); MONOCYTES % (AUTO) 5.7 % (2.0-9.0); NEUTROPHILS # (AUTO) 2.5 K/uL (1.8-7.7); NEUTROPHILS % (AUTO) 80.3 % (40.0-70.0); PLATELET COUNT (AUTO) 50 K/uL (150-450); RED BLOOD CELL COUNT(AUTO) 2.77 MIL/uL (4.50-5.90)
[2022-01-21 06:20] LABS: ALANINE AMINOTRANSFERASE 155 U/L (12-78); ALBUMIN 1.8 g/dL (3.4-5.0); ALKALINE PHOSPHATASE 96 U/L (46-116); ANION GAP 7 mmol/L (8-16); ASPARTATE AMINOTRANSFERASE 108 U/L (15-37); BILIRUBIN,TOTAL 1.2 mg/dL (0.1-1.0); C-REACTIVE PROTEIN QUANT 12.46 mg/dL (0.00-0.30); CARBON DIOXIDE 27 mmol/L (22-29); CHLORIDE 112 mmol/L (98-107); CREATININE 1.03 mg/dL (0.60-1.30); GLUCOSE,RANDOM 169 mg/dL (70-110); POTASSIUM 3.3 mmol/L (3.5-5.1); SODIUM SERUM 146 mmol/L (136-145); TOTAL PROTEIN, SERUM 4.8 g/dL (6.4-8.2); UREA NITROGEN, BLOOD 34 mg/dL (7-18)
[2022-01-21 06:24] LABS: GLOMERULAR FILTR. RATE CALC > 60 mL/min (>60)
[2022-01-21 07:31] LABS: GLUCOSE,POINT OF CARE 140 MG/DL (70-110)
[2022-01-21 08:00] VITALS: BP 121/44
[2022-01-21] MEDS ORDERED: VANCOMYCIN HCL 750 MG in DEXTROSE 5%-WATER 250 ML IV SCH (08:00)
[2022-01-21] MEDS ORDERED: DEXMEDETOMIDINE HCL 400 MCG in SODIUM CHLORIDE 0.9% 96 ML IV PRN (08:30)
[2022-01-21] MEDS: EZETIMIBE 10 MG TABLET PO SCH (08:34)
[2022-01-21] MEDS: PANTOPRAZOLE SODIUM 40 MG/VIAL IVP SCH (08:35)
[2022-01-21] MEDS: DOCUSATE SODIUM 100 MG CAPSULE PO SCH ×2 (08:35→21:48)
[2022-01-21] MEDS: MONTELUKAST SODIUM 10 MG TABLET PO SCH (08:35)
[2022-01-21] MEDS: SODIUM CHLORIDE 0.45% 1,000 ML IV SCH ×2 (09:27→23:50)
[2022-01-21] MEDS: POTASSIUM CHL 10 MEQ/WATER 50 ML IV SCH ×4 (09:27→13:57)
[2022-01-21 12:00] VITALS: BP 113/68
[2022-01-21] MEDS: MEROPENEM 1 GM in SODIUM CHLORIDE 0.9% 100 ML IV SCH (12:18)
[2022-01-21] MEDS ORDERED: CASPOFUNGIN ACETATE 50 MG in SODIUM CHLORIDE 0.9% 250 ML IV SCH (13:00)
[2022-01-21] MEDS: FLUCONAZOLE 200 MG/NACL ISOOSM 100 ML IV SCH (13:58)
[2022-01-21] MEDS: NOREPINEPHRINE 8 MG/D5%-WATER 250 ML IV PRN (15:22)
[2022-01-21 16:00] VITALS: BP 139/50
[2022-01-21 17:06] LABS: S PNEUMO SOURCE Urine; STREP PNEUMONIAE AG URINE Negative (Negative)
[2022-01-21 19:01] LABS: GLUCOSE,POINT OF CARE 155 MG/DL (70-110)
[2022-01-21 19:01] LABS: GLUCOSE,POINT OF CARE 190 MG/DL (70-110)
[2022-01-21 20:00] VITALS: BP 132/47
[2022-01-21] MEDS ORDERED: VANCOMYCIN HCL 500 MG in DEXTROSE 5%-WATER 100 ML IV SCH (20:00)
[2022-01-21] MEDS: FINASTERIDE 5 MG TABLET PO SCH (21:48)
[2022-01-21] MEDS: SIMVASTATIN 20 MG TABLET PO SCH (21:49)
[2022-01-21] MEDS ORDERED: SODIUM CHLORIDE 0.9% 0 ML ONE (23:45)
[2022-01-22] VITALS: BP 142/90
[2022-01-22] MEDS: MEROPENEM 1 GM in SODIUM CHLORIDE 0.9% 100 ML IV SCH ×3 (00:18→16:44)
[2022-01-22 01:06] LABS: GLUCOSE,POINT OF CARE 122 MG/DL (70-110)
[2022-01-22 04:00] VITALS: BP 106/64
[2022-01-22] MEDS: ALBUMIN HUMAN 25%-12.5GM/50ML 50 ML IV SCH ×4 (05:11→22:54)
[2022-01-22 05:33] LABS: BASOPHILS % (AUTO) 0.2 % (0.0-2.0); EOSINOPHILS % (AUTO) 1.2 % (1.0-6.0); HEMATOCRIT 24.2 % (41-53); HEMOGLOBIN 8.1 g/dL (13.5-17.5); LYMPHOCYTES # (AUTO) 0.5 K/uL (1.0-4.8); LYMPHOCYTES % (AUTO) 13.2 % (22.0-44.0); MEAN CORPUSCULAR HEMOGLOBIN 29.5 pg (26.0-34.0); MEAN CORPUSCULAR HGB CONC 33.6 G/dL (31.0-37.0); MEAN CORPUSCULAR VOLUME 88 fL (80-100); MONOCYTES # (AUTO) 0.3 K/uL (0.1-1.0); MONOCYTES % (AUTO) 9.9 % (2.0-9.0); NEUTROPHILS # (AUTO) 2.6 K/uL (1.8-7.7); NEUTROPHILS % (AUTO) 75.5 % (40.0-70.0); PLATELET COUNT (AUTO) 43 K/uL (150-450); RED BLOOD CELL COUNT(AUTO) 2.76 MIL/uL (4.50-5.90); RED CELL DISTRIBUTION WIDTH 14.7 % (11.5-14.5)
[2022-01-22 05:48] LABS: ALANINE AMINOTRANSFERASE 133 U/L (12-78); ALBUMIN 1.9 g/dL (3.4-5.0); ALKALINE PHOSPHATASE 138 U/L (46-116); ANION GAP 4 mmol/L (8-16); ASPARTATE AMINOTRANSFERASE 101 U/L (15-37); BILIRUBIN,TOTAL 1.4 mg/dL (0.1-1.0); C-REACTIVE PROTEIN QUANT 7.97 mg/dL (0.00-0.30); CALCIUM, TOTAL 7.4 mg/dL (8.8-10.5); CARBON DIOXIDE 29 mmol/L (22-29); CHLORIDE 111 mmol/L (98-107); CREATININE 0.71 mg/dL (0.60-1.30); GLUCOSE,RANDOM 133 mg/dL (70-110); POTASSIUM 3.5 mmol/L (3.5-5.1); SODIUM SERUM 144 mmol/L (136-145); TOTAL PROTEIN, SERUM 4.8 g/dL (6.4-8.2); UREA NITROGEN, BLOOD 25 mg/dL (7-18)
[2022-01-22 05:51] LABS: GLOMERULAR FILTR. RATE CALC > 60 mL/min (>60)
[2022-01-22 06:36] LABS: GLUCOSE,POINT OF CARE 137 MG/DL (70-110)
[2022-01-22 08:00] VITALS: BP 144/66
[2022-01-22] MEDS: DOCUSATE SODIUM 100 MG CAPSULE PO SCH ×2 (08:03→20:38)
[2022-01-22] MEDS: PANTOPRAZOLE SODIUM 40 MG/VIAL IVP SCH (08:03)
[2022-01-22] MEDS: MONTELUKAST SODIUM 10 MG TABLET PO SCH (08:03)
[2022-01-22] MEDS: COLCHICINE 0.6 MG TABLET PO SCH (08:03)
[2022-01-22] MEDS: EZETIMIBE 10 MG TABLET PO SCH (08:03)
[2022-01-22 10:16] LABS: ABG CARBOXYHEMOGLOBIN 0.1 % (0.0-1.5); ABG HCO3 23.9 mmol/L (22.0-26.0); ABG METHEMOGLOBIN 0.3 % (0.0-1.5); ABG OXYGEN CONTENT 12.3 mL/dL (15.0-23.0); ABG OXYGEN SATURATION 98.6 % (95.0-98.0); ABG OXYHEMOGLOBIN 98.2 % (94.0-100.0); ABG PCO2 36 mmHg (35-45); ABG TOTAL HEMOGLOBIN 8.7 G/dL (12.0-18.0); PO2, ARTERIAL BG 122.2 mmHg (71.0-79.0); SOURCE, BLOOD GAS ARTERIAL; TEMPERATURE, FAHRENHEIT, BG 98.1 FAHREN (96.0-98.6)
[2022-01-22 10:18] LABS: ABG A-A DIFF O2 85.5 mmHg (10-20.0); CPAP, BG 5 cm H2O; O2 DEVICE,BLOOD GAS VENTILATOR (ROOM AIR); PRESSURE SUPPORT, BG 8 cm H2O; SITE, BLOOD GAS ARTERIAL LINE; SPONTANEOUS VT, BG 320 ml; VENT MODE, BG CPAP (ROOM AIR)
[2022-01-22] MEDS: INSULIN LISPRO 100 UNITS/ML SQ PRN ×3 (11:05→23:50)
[2022-01-22 12:00] VITALS: BP 120/80
[2022-01-22] MEDS: SODIUM CHLORIDE 0.45% 1,000 ML IV SCH (13:40)
[2022-01-22] MEDS: FLUCONAZOLE 200 MG/NACL ISOOSM 100 ML IV SCH (13:40)
[2022-01-22 16:00] VITALS: BP 125/46
[2022-01-22 16:28] LABS: ABG A-A DIFF O2 179.3 mmHg (10-20.0); ABG BASE EXCESS 2.1 mmol/L (-2.0-3.0); ABG CARBOXYHEMOGLOBIN 0.4 % (0.0-1.5); ABG HCO3 26.2 mmol/L (22.0-26.0); ABG METHEMOGLOBIN 0.3 % (0.0-1.5); ABG OXYGEN CONTENT 11.5 mL/dL (15.0-23.0); ABG OXYGEN SATURATION 98.7 % (95.0-98.0); ABG PCO2 41 mmHg (35-45); ABG PH 7.429 (7.35-7.450); ABG TOTAL HEMOGLOBIN 8.1 G/dL (12.0-18.0); O2 DEVICE,BLOOD GAS BIPAP (ROOM AIR); PO2, ARTERIAL BG 132.3 mmHg (71.0-79.0); SITE, BLOOD GAS ARTERIAL LINE; SOURCE, BLOOD GAS ARTERIAL; SPONTANEOUS VT, BG 371 ml; TEMPERATURE, FAHRENHEIT, BG 97.3 FAHREN (96.0-98.6)
[2022-01-22 17:06] LABS: LEGIONELLA PNEUMO AG URINE Negative (Negative)
[2022-01-22 19:36] LABS: GLUCOSE,POINT OF CARE 152 MG/DL (70-110)
[2022-01-22 19:36] LABS: GLUCOSE,POINT OF CARE 148 MG/DL (70-110)
[2022-01-22 20:00] VITALS: BP 149/48
[2022-01-22] MEDS: FINASTERIDE 5 MG TABLET PO SCH (20:38)
[2022-01-22] MEDS: SIMVASTATIN 20 MG TABLET PO SCH (20:38)
[2022-01-23] VITALS: BP 168/50
[2022-01-23] MEDS: MEROPENEM 1 GM in SODIUM CHLORIDE 0.9% 100 ML IV SCH ×3 (00:44→16:58)
[2022-01-23 04:00] VITALS: BP 104/63
[2022-01-23] MEDS: ALBUMIN HUMAN 25%-12.5GM/50ML 50 ML IV SCH ×4 (05:00→22:53)
[2022-01-23 05:52] LABS: GLUCOSE,POINT OF CARE 148 MG/DL (70-110)
[2022-01-23 05:52] LABS: GLUCOSE,POINT OF CARE 145 MG/DL (70-110)
[2022-01-23] MEDS ORDERED: SODIUM CHLORIDE 0.9% 250 ML IV ONE ×2 (06:00→20:54)
[2022-01-23] MEDS: INSULIN LISPRO 100 UNITS/ML SQ PRN ×4 (06:55→23:50)
[2022-01-23] MEDS: COLCHICINE 0.6 MG TABLET PO SCH (06:57)
[2022-01-23 07:07] LABS: ALANINE AMINOTRANSFERASE 141 U/L (12-78); ALBUMIN 2.4 g/dL (3.4-5.0); ALKALINE PHOSPHATASE 180 U/L (46-116); ANION GAP 7 mmol/L (8-16); ASPARTATE AMINOTRANSFERASE 119 U/L (15-37); BILIRUBIN,TOTAL 1.3 mg/dL (0.1-1.0); C-REACTIVE PROTEIN QUANT 5.53 mg/dL (0.00-0.30); CARBON DIOXIDE 29 mmol/L (22-29); CHLORIDE 112 mmol/L (98-107); CREATININE 0.72 mg/dL (0.60-1.30); GLOMERULAR FILTR. RATE CALC > 60 mL/min (>60); GLUCOSE,RANDOM 144 mg/dL (70-110); POTASSIUM 3.6 mmol/L (3.5-5.1); SODIUM SERUM 148 mmol/L (136-145); TOTAL PROTEIN, SERUM 5.3 g/dL (6.4-8.2); UREA NITROGEN, BLOOD 23 mg/dL (7-18)
[2022-01-23 07:27] LABS: BASOPHILS % (AUTO) 0.2 % (0.0-2.0); EOSINOPHILS % (AUTO) 1.1 % (1.0-6.0); HEMATOCRIT 23.3 % (41-53); HEMOGLOBIN 7.9 g/dL (13.5-17.5); LYMPHOCYTES # (AUTO) 0.5 K/uL (1.0-4.8); LYMPHOCYTES % (AUTO) 10.7 % (22.0-44.0); MEAN CORPUSCULAR HEMOGLOBIN 29.6 pg (26.0-34.0); MEAN CORPUSCULAR HGB CONC 33.9 G/dL (31.0-37.0); MEAN CORPUSCULAR VOLUME 88 fL (80-100); MONOCYTES # (AUTO) 0.5 K/uL (0.1-1.0); MONOCYTES % (AUTO) 9.2 % (2.0-9.0); NEUTROPHILS % (AUTO) 78.8 % (40.0-70.0); PLATELET COUNT (AUTO) 51 K/uL (150-450); RED BLOOD CELL COUNT(AUTO) 2.67 MIL/uL (4.50-5.90)
[2022-01-23] MEDS: DOCUSATE SODIUM 100 MG CAPSULE PO SCH ×2 (07:47→20:38)
[2022-01-23] MEDS: PANTOPRAZOLE SODIUM 40 MG/VIAL IVP SCH (07:50)
[2022-01-23] MEDS: EZETIMIBE 10 MG TABLET PO SCH (07:50)
[2022-01-23] MEDS: MONTELUKAST SODIUM 10 MG TABLET PO SCH (07:50)
[2022-01-23 08:00] VITALS: BP 126/68
[2022-01-23] MEDS ORDERED: FUROSEMIDE 40 MG/4 ML VIAL IVP ONE (11:15)
[2022-01-23 12:00] VITALS: BP 131/87
[2022-01-23] MEDS: SODIUM,POTASSIUM PHOSPHATES POWDER PACKET PO SCH ×2 (12:29→20:39)
[2022-01-23] MEDS: SODIUM CHLORIDE 0.45% 1,000 ML IV SCH (12:29)
[2022-01-23] MEDS: FLUCONAZOLE 200 MG/NACL ISOOSM 100 ML IV SCH (14:02)
[2022-01-23 16:00] VITALS: BP 119/64
[2022-01-23 16:01] LABS: GLUCOSE,POINT OF CARE 153 MG/DL (70-110)
[2022-01-23 20:00] VITALS: BP 116/65
[2022-01-23 20:01] LABS: GLUCOSE,POINT OF CARE 182 MG/DL (70-110)
[2022-01-23] MEDS: FINASTERIDE 5 MG TABLET PO SCH (20:40)
[2022-01-23] MEDS: SIMVASTATIN 20 MG TABLET PO SCH (20:40)
[2022-01-23] MEDS ORDERED: SODIUM CHLORIDE 0.9% 500 ML IV ONE (23:00)
[2022-01-24] VITALS: BP 121/65
[2022-01-24 00:51] LABS: GLUCOSE,POINT OF CARE 152 MG/DL (70-110)
[2022-01-24] MEDS: MEROPENEM 1 GM in SODIUM CHLORIDE 0.9% 100 ML IV SCH ×3 (01:12→16:35)
[2022-01-24 04:00] VITALS: BP 143/65
[2022-01-24 05:09] LABS: BASOPHILS % (AUTO) 0.2 % (0.0-2.0); EOSINOPHILS % (AUTO) 0.9 % (1.0-6.0); HEMATOCRIT 24.9 % (41-53); HEMOGLOBIN 8.5 g/dL (13.5-17.5); LYMPHOCYTES # (AUTO) 0.7 K/uL (1.0-4.8); LYMPHOCYTES % (AUTO) 9.2 % (22.0-44.0); MEAN CORPUSCULAR HGB CONC 34.2 G/dL (31.0-37.0); MEAN CORPUSCULAR VOLUME 88 fL (80-100); MONOCYTES # (AUTO) 0.4 K/uL (0.1-1.0); MONOCYTES % (AUTO) 5.3 % (2.0-9.0); NEUTROPHILS # (AUTO) 6.6 K/uL (1.8-7.7); NEUTROPHILS % (AUTO) 84.4 % (40.0-70.0); PLATELET COUNT (AUTO) 68 K/uL (150-450); RED BLOOD CELL COUNT(AUTO) 2.84 MIL/uL (4.50-5.90); RED CELL DISTRIBUTION WIDTH 15.2 % (11.5-14.5)
[2022-01-24 05:20] LABS: ANION GAP 3 mmol/L (8-16); CARBON DIOXIDE 37 mmol/L (22-29); CHLORIDE 107 mmol/L (98-107); CREATININE 0.53 mg/dL (0.60-1.30); GLUCOSE,RANDOM 190 mg/dL (70-110); SODIUM SERUM 147 mmol/L (136-145); UREA NITROGEN, BLOOD 21 mg/dL (7-18)
[2022-01-24 05:26] LABS: GLOMERULAR FILTR. RATE CALC > 60 mL/min (>60); POTASSIUM 2.9 mmol/L (3.5-5.1)
[2022-01-24] MEDS: ALBUMIN HUMAN 25%-12.5GM/50ML 50 ML IV SCH ×4 (05:51→23:48)
[2022-01-24] MEDS: POTASSIUM CHL 10 MEQ/WATER 50 ML IV SCH ×2 (05:57→06:58)
[2022-01-24 06:56] LABS: GLUCOSE,POINT OF CARE 180 MG/DL (70-110)
[2022-01-24] MEDS: COLCHICINE 0.6 MG TABLET PO SCH (07:15)
[2022-01-24 08:00] VITALS: BP 155/79
[2022-01-24] MEDS: PANTOPRAZOLE SODIUM 40 MG/VIAL IVP SCH (08:08)
[2022-01-24] MEDS: MONTELUKAST SODIUM 10 MG TABLET PO SCH (08:09)
[2022-01-24] MEDS: DOCUSATE SODIUM 100 MG CAPSULE PO SCH ×2 (08:09→21:57)
[2022-01-24] MEDS: EZETIMIBE 10 MG TABLET PO SCH (08:09)
[2022-01-24] MEDS ORDERED: MULTIVITAMINS WITH MINERALS, THERAPEUTIC 15 ML UDCUP NG ONE (09:00)
[2022-01-24] MEDS ORDERED: SODIUM PHOS,M-BASIC-D-BASIC 20 MEQ in DEXTROSE 5%-WATER 100 ML IV ONE (09:45)
[2022-01-24] MEDS: METOPROLOL TARTRATE 25 MG TABLET PO SCH ×2 (10:22→21:00)
[2022-01-24 10:57] LABS: ABG BASE EXCESS 9.1 mmol/L (-2.0-3.0); ABG CARBOXYHEMOGLOBIN 0.4 % (0.0-1.5); ABG METHEMOGLOBIN 0.3 % (0.0-1.5); ABG OXYGEN CONTENT 12.4 mL/dL (15.0-23.0); ABG OXYHEMOGLOBIN 94.3 % (94.0-100.0); ABG PCO2 46 mmHg (35-45); ABG PH 7.472 (7.35-7.450); ABG TOTAL HEMOGLOBIN 9.3 G/dL (12.0-18.0); PO2, ARTERIAL BG 72.3 mmHg (71.0-79.0); SOURCE, BLOOD GAS ARTERIAL; TEMPERATURE, FAHRENHEIT, BG 98.6 FAHREN (96.0-98.6)
[2022-01-24 10:58] LABS: ABG A-A DIFF O2 232.7 mmHg (10-20.0); INSPIRATORY TIME, BG 0.9 SEC; O2 DEVICE,BLOOD GAS BIPAP (ROOM AIR); SITE, BLOOD GAS ARTERIAL LINE; SPONTANEOUS VT, BG 300 ml
[2022-01-24 12:00] VITALS: BP 175/51
[2022-01-24 13:36] LABS: GLUCOSE,POINT OF CARE 197 MG/DL (70-110)
[2022-01-24] MEDS: INSULIN LISPRO 100 UNITS/ML SQ PRN ×2 (13:36→18:38)
[2022-01-24] MEDS: FLUCONAZOLE 200 MG/NACL ISOOSM 100 ML IV SCH (13:37)
[2022-01-24 14:48] LABS: ANION GAP 3 mmol/L (8-16); CARBON DIOXIDE 35 mmol/L (22-29); CHLORIDE 109 mmol/L (98-107); CREATININE 0.63 mg/dL (0.60-1.30); GLUCOSE,RANDOM 207 mg/dL (70-110); PHOSPHORUS 3.9 mg/dL (2.5-4.9); POTASSIUM 3.2 mmol/L (3.5-5.1); SODIUM SERUM 147 mmol/L (136-145); UREA NITROGEN, BLOOD 25 mg/dL (7-18)
[2022-01-24 14:50] LABS: GLOMERULAR FILTR. RATE CALC > 60 mL/min (>60)
[2022-01-24] MEDS: HYDROCODONE/ACETAMINOPHEN 5-325 MG TABLET PO PRN (15:37)
[2022-01-24 16:00] VITALS: BP 88/61
[2022-01-24 17:23] LABS: ABG BASE EXCESS 7.6 mmol/L (-2.0-3.0); ABG CARBOXYHEMOGLOBIN 1.1 % (0.0-1.5); ABG HCO3 29.6 mmol/L (22.0-26.0); ABG METHEMOGLOBIN 0.3 % (0.0-1.5); ABG OXYGEN CONTENT 8.8 mL/dL (15.0-23.0); ABG OXYGEN SATURATION 70.2 % (95.0-98.0); ABG OXYHEMOGLOBIN 69.2 % (94.0-100.0); ABG PCO2 79 mmHg (35-45); ABG PH 7.262 (7.35-7.450); PO2, ARTERIAL BG 42.2 mmHg (71.0-79.0); SITE, BLOOD GAS ARTERIAL LINE; SOURCE, BLOOD GAS ARTERIAL; TEMPERATURE, FAHRENHEIT, BG 98.6 FAHREN (96.0-98.6)
[2022-01-24 17:24] LABS: ABG A-A DIFF O2 59.2 mmHg (10-20.0); O2 DEVICE,BLOOD GAS BIPAP (ROOM AIR); SPONTANEOUS VT, BG 400 ml
[2022-01-24] MEDS ORDERED: ROCURONIUM BROMIDE 10 MG/ML 5 ML VIAL IVP ONE (18:00)
[2022-01-24] MEDS ORDERED: ETOMIDATE 2 MG/ML 10 ML VIAL IVP ONE (18:00)
[2022-01-24 18:31] LABS: GLUCOSE,POINT OF CARE 203 MG/DL (70-110)
[2022-01-24 19:25] LABS: ABG BASE EXCESS 8.2 mmol/L (-2.0-3.0); ABG CARBOXYHEMOGLOBIN 0.1 % (0.0-1.5); ABG METHEMOGLOBIN 0.3 % (0.0-1.5); ABG OXYGEN CONTENT 13.5 mL/dL (15.0-23.0); ABG OXYGEN SATURATION 99.3 % (95.0-98.0); ABG OXYHEMOGLOBIN 98.9 % (94.0-100.0); ABG PCO2 58 mmHg (35-45); ABG PH 7.382 (7.35-7.450); ABG TOTAL HEMOGLOBIN 9.2 G/dL (12.0-18.0); PO2, ARTERIAL BG 262.3 mmHg (71.0-79.0); SOURCE, BLOOD GAS ARTERIAL; TEMPERATURE, FAHRENHEIT, BG 100.2 FAHREN (96.0-98.6)
[2022-01-24 19:29] LABS: ABG A-A DIFF O2 390.7 mmHg (10-20.0); O2 DEVICE,BLOOD GAS VENT (ROOM AIR); SITE, BLOOD GAS ALINE
[2022-01-24 19:30] LABS: PEEP,BG 5 cm H2O; SPONTANEOUS VT, BG 424 ml; VT, ABG 450 ml
[2022-01-24 20:00] VITALS: BP 114/41
[2022-01-24] MEDS: SIMVASTATIN 20 MG TABLET PO SCH (21:57)
[2022-01-24] MEDS: FINASTERIDE 5 MG TABLET PO SCH (22:23)
[2022-01-24] MEDS: MORPHINE SULFATE 2 MG/ML SYRINGE IVP PRN (22:30)
[2022-01-24] MEDS: NOREPINEPHRINE 8 MG/D5%-WATER 250 ML IV PRN (22:31)
[2022-01-25] VITALS: BP 136/70
[2022-01-25 00:36] LABS: GLUCOSE,POINT OF CARE 117 MG/DL (70-110)
[2022-01-25] MEDS: MEROPENEM 1 GM in SODIUM CHLORIDE 0.9% 100 ML IV SCH ×3 (00:42→16:38)
[2022-01-25 04:00] VITALS: BP 149/43
[2022-01-25] MEDS: MORPHINE SULFATE 2 MG/ML SYRINGE IVP PRN (04:46)
[2022-01-25] MEDS: ALBUMIN HUMAN 25%-12.5GM/50ML 50 ML IV SCH ×4 (05:16→22:24)
[2022-01-25 05:28] LABS: ALANINE AMINOTRANSFERASE 107 U/L (12-78); ALKALINE PHOSPHATASE 144 U/L (46-116); ANION GAP 3 mmol/L (8-16); ASPARTATE AMINOTRANSFERASE 68 U/L (15-37); BILIRUBIN,TOTAL 1.7 mg/dL (0.1-1.0); C-REACTIVE PROTEIN QUANT 5.46 mg/dL (0.00-0.30); CALCIUM, TOTAL 8.4 mg/dL (8.8-10.5); CARBON DIOXIDE 38 mmol/L (22-29); CHLORIDE 110 mmol/L (98-107); CREATININE 0.76 mg/dL (0.60-1.30); GLUCOSE,RANDOM 119 mg/dL (70-110); PHOSPHORUS 2.6 mg/dL (2.5-4.9); POTASSIUM 3.3 mmol/L (3.5-5.1); SODIUM SERUM 151 mmol/L (136-145); TOTAL PROTEIN, SERUM 5.6 g/dL (6.4-8.2); UREA NITROGEN, BLOOD 28 mg/dL (7-18)
[2022-01-25 05:32] LABS: GLOMERULAR FILTR. RATE CALC > 60 mL/min (>60)
[2022-01-25 06:36] LABS: GLUCOSE,POINT OF CARE 109 MG/DL (70-110)
[2022-01-25] MEDS: COLCHICINE 0.6 MG TABLET PO SCH (07:00)
[2022-01-25 08:00] VITALS: BP 139/71
[2022-01-25] MEDS: METOPROLOL TARTRATE 25 MG TABLET PO SCH ×2 (09:00→20:18)
[2022-01-25] MEDS: EZETIMIBE 10 MG TABLET PO SCH (09:20)
[2022-01-25] MEDS: POTASSIUM CHL 10 MEQ/WATER 50 ML IV SCH ×2 (09:20→10:43)
[2022-01-25] MEDS: PANTOPRAZOLE SODIUM 40 MG/VIAL IVP SCH (09:20)
[2022-01-25] MEDS: DOCUSATE SODIUM 100 MG CAPSULE PO SCH ×2 (09:20→20:18)
[2022-01-25] MEDS: DEXTROSE 5%-WATER 1,000 ML IV SCH (09:20)
[2022-01-25] MEDS: MONTELUKAST SODIUM 10 MG TABLET PO SCH (09:20)
[2022-01-25] MEDS: NOREPINEPHRINE 8 MG/D5%-WATER 250 ML IV PRN ×2 (09:49→20:18)
[2022-01-25] MEDS ORDERED: AMIODARONE HCL 360 MG in DEXTROSE 5%-WATER 242.8 ML IV ONE (10:30)
[2022-01-25] MEDS ORDERED: AMIODARONE HCL 150 MG in DEXTROSE 5%-WATER 97 ML IV ONE (10:30)
[2022-01-25 12:00] VITALS: BP 99/55
[2022-01-25] MEDS: DAPTOMYCIN 500 MG in SODIUM CHLORIDE 0.9% 50 ML IV SCH (14:15)
[2022-01-25] MEDS: FLUCONAZOLE 200 MG/NACL ISOOSM 100 ML IV SCH (15:03)
[2022-01-25 16:00] VITALS: BP 94/57
[2022-01-25] MEDS: ACETAMINOPHEN 325 MG TABLET PO PRN (16:15)
[2022-01-25 16:21] LABS: ABG BASE EXCESS 4.2 mmol/L (-2.0-3.0); ABG CARBOXYHEMOGLOBIN 0.8 % (0.0-1.5); ABG HCO3 27.6 mmol/L (22.0-26.0); ABG METHEMOGLOBIN 0.3 % (0.0-1.5); ABG OXYGEN CONTENT 9.9 mL/dL (15.0-23.0); ABG OXYGEN SATURATION 87.6 % (95.0-98.0); ABG OXYHEMOGLOBIN 86.6 % (94.0-100.0); ABG PCO2 57 mmHg (35-45); ABG TOTAL HEMOGLOBIN 8.1 G/dL (12.0-18.0); PO2, ARTERIAL BG 65.7 mmHg (71.0-79.0); SOURCE, BLOOD GAS ARTERIAL
[2022-01-25 16:23] LABS: ABG A-A DIFF O2 583.4 mmHg (10-20.0); O2 DEVICE,BLOOD GAS VENTILATOR (ROOM AIR); PEEP,BG 5 cm H2O; SITE, BLOOD GAS ARTERIAL LINE; VT, ABG 450 ml
[2022-01-25 16:29] LABS: APPEARANCE,URINE CLEAR (CLEAR); BILIRUBIN,URINE NEGATIVE (NEGATIVE); GLUCOSE, URINE (UA) NEGATIVE (NEGATIVE); KETONES,URINE TRACE mg/dL (NEGATIVE); LEUKOCYTE ESTERASE ,URINE NEGATIVE (NEGATIVE); NITRATE,URINE NEGATIVE (NEGATIVE); OCCULT BLOOD,URINE LARGE (NEGATIVE); PH,URINE 5.5 (5.0-8.0); PROTEIN,URINE 100-200,SEE CONFIRM mg/dL (NEGATIVE); SPECIFIC GRAVITIY, URINE 1.019 (1.003-1.030); UROBILINOGEN,URINE <=1.0 mg/dL (<=1.0)
[2022-01-25] MEDS ORDERED: AMIODARONE HCL 540 MG in DEXTROSE 5%-WATER 239.2 ML IV ONE (16:30)
[2022-01-25] MEDS ORDERED: SODIUM CHLORIDE 0.9% 250 ML IV ONE (17:00)
[2022-01-25 17:09] LABS: BACTERIA,URINE Few /HPF (None Seen); SQUAMOUS EPITHELIAL CELL,UR Few /LPF (None Seen); SULFOSALICYLIC ACID,URINE 2+ (Negative)
[2022-01-25] MEDS ORDERED: LIDOCAINE 2% 5 ML JELLY TP ONE (17:12)
[2022-01-25] MEDS ORDERED: ETOMIDATE 2 MG/ML 10 ML VIAL IV ONE (17:12)
[2022-01-25] MEDS ORDERED: ROCURONIUM BROMIDE 10 MG/ML 5 ML VIAL IV ONE (17:14)
[2022-01-25 18:26] LABS: GLUCOSE,POINT OF CARE 93 MG/DL (70-110)
[2022-01-25 18:26] LABS: GLUCOSE,POINT OF CARE 117 MG/DL (70-110)
[2022-01-25] MEDS ORDERED: DOPamine 400MG/D5W[STANDARD] 250 ML IV ONE (19:15)
[2022-01-25] MEDS ORDERED: SODIUM CHLORIDE 0.9% 1,000 ML ONE (19:16)
[2022-01-25] MEDS: VASOPRESSIN 40 UNITS in DEXTROSE 5%-WATER 98 ML IV PRN (19:57)
[2022-01-25 20:00] VITALS: BP 49/28
[2022-01-25] MEDS: FINASTERIDE 5 MG TABLET PO SCH (20:19)
[2022-01-25] MEDS: SIMVASTATIN 20 MG TABLET PO SCH (20:19)
[2022-01-25] MEDS: DOPamine 400MG/D5W[STANDARD] 250 ML IV PRN ×2 (21:09→22:53)
[2022-01-26] VITALS (11 sets, daily range): BP systolic 89–121; BP diastolic 42–76
[2022-01-26] MEDS: NOREPINEPHRINE 8 MG/D5%-WATER 250 ML IV PRN ×4 (00:56→18:31)
[2022-01-26] MEDS: MEROPENEM 1 GM in SODIUM CHLORIDE 0.9% 100 ML IV SCH ×3 (01:09→17:03)
[2022-01-26] MEDS: INSULIN LISPRO 100 UNITS/ML SQ PRN ×3 (01:10→13:34)
[2022-01-26 04:15] LABS: GLUCOSE,POINT OF CARE 208 MG/DL (70-110)
[2022-01-26] MEDS: ALBUMIN HUMAN 25%-12.5GM/50ML 50 ML IV SCH ×4 (04:21→23:03)
[2022-01-26] MEDS: DOPamine 400MG/D5W[STANDARD] 250 ML IV PRN (04:45)
[2022-01-26] MEDS: VASOPRESSIN 40 UNITS in DEXTROSE 5%-WATER 98 ML IV PRN (04:56)
[2022-01-26 05:24] LABS: BASOPHILS % (AUTO) 0.4 % (0.0-2.0); EOSINOPHILS % (AUTO) 0.1 % (1.0-6.0); HEMATOCRIT 21.3 % (41-53); LYMPHOCYTES # (AUTO) 1.2 K/uL (1.0-4.8); LYMPHOCYTES % (AUTO) 7.1 % (22.0-44.0); MEAN CORPUSCULAR HEMOGLOBIN 29.5 pg (26.0-34.0); MEAN CORPUSCULAR HGB CONC 32.2 G/dL (31.0-37.0); MEAN CORPUSCULAR VOLUME 91 fL (80-100); MONOCYTES # (AUTO) 0.5 K/uL (0.1-1.0); MONOCYTES % (AUTO) 2.7 % (2.0-9.0); NEUTROPHILS # (AUTO) 15.5 K/uL (1.8-7.7); PLATELET COUNT (AUTO) 105 K/uL (150-450); RED BLOOD CELL COUNT(AUTO) 2.33 MIL/uL (4.50-5.90); RED CELL DISTRIBUTION WIDTH 16.3 % (11.5-14.5)
[2022-01-26 05:50] LABS: NEUTROPHILS % (AUTO) 89.7 % (40.0-70.0)
[2022-01-26 05:52] LABS: HEMOGLOBIN 6.9 g/dL (13.5-17.5)
[2022-01-26] MEDS: COLCHICINE 0.6 MG TABLET PO SCH (06:12)
[2022-01-26 08:41] LABS: GLUCOSE,POINT OF CARE 236 MG/DL (70-110)
[2022-01-26] MEDS: DEXTROSE 5%-WATER 1,000 ML IV SCH (08:45)
[2022-01-26] MEDS: METOPROLOL TARTRATE 25 MG TABLET PO SCH ×2 (09:00→21:00)
[2022-01-26] MEDS: PANTOPRAZOLE SODIUM 40 MG/VIAL IVP SCH (09:04)
[2022-01-26] MEDS: MONTELUKAST SODIUM 10 MG TABLET PO SCH (09:05)
[2022-01-26] MEDS: DOCUSATE SODIUM 100 MG CAPSULE PO SCH ×2 (09:05→21:00)
[2022-01-26] MEDS: EZETIMIBE 10 MG TABLET PO SCH (09:05)
[2022-01-26] MEDS ORDERED: AMIODARONE HCL 750 MG in DEXTROSE 5%-WATER 485 ML IV SCH (10:30)
[2022-01-26 12:00] LABS: CALCIUM, TOTAL 7.8 mg/dL (8.8-10.5); CREATININE 1.47 mg/dL (0.60-1.30); POTASSIUM 4.8 mmol/L (3.5-5.1)
[2022-01-26 12:26] LABS: ALBUMIN 3.1 g/dL (3.4-5.0); BILIRUBIN,TOTAL 3.5 mg/dL (0.1-1.0); C-REACTIVE PROTEIN QUANT 7.57 mg/dL (0.00-0.30); TOTAL PROTEIN, SERUM 5.3 g/dL (6.4-8.2)
[2022-01-26] MEDS: FLUCONAZOLE 200 MG/NACL ISOOSM 100 ML IV SCH (13:34)
[2022-01-26] MEDS: DAPTOMYCIN 500 MG in SODIUM CHLORIDE 0.9% 50 ML IV SCH (14:48)
[2022-01-26] MEDS ORDERED: SODIUM CHLORIDE 0.9% 500 ML IV ONE (14:50)
[2022-01-26 18:17] LABS: GLUCOSE,POINT OF CARE 179 MG/DL (70-110)
[2022-01-26 19:28] LABS: CALCIUM, TOTAL 7.9 mg/dL (8.8-10.5); CREATININE 1.56 mg/dL (0.60-1.30); POTASSIUM 4.8 mmol/L (3.5-5.1)
[2022-01-26 19:33] LABS: MAGNESIUM 1.9 mg/dL (1.80-2.40); PHOSPHORUS 6.3 mg/dL (2.5-4.9)
[2022-01-26] MEDS: FINASTERIDE 5 MG TABLET PO SCH (21:12)
[2022-01-26] MEDS: SIMVASTATIN 20 MG TABLET PO SCH (21:12)
[2022-01-27] VITALS: BP 89/52
[2022-01-27] MEDS: MEROPENEM 1 GM in SODIUM CHLORIDE 0.9% 100 ML IV SCH ×2 (01:10→12:58)
[2022-01-27 02:36] LABS: GLUCOSE,POINT OF CARE 165 MG/DL (70-110)
[2022-01-27 04:00] VITALS: BP 87/53
[2022-01-27] MEDS: ALBUMIN HUMAN 25%-12.5GM/50ML 50 ML IV SCH ×4 (05:43→22:42)
[2022-01-27] MEDS: NOREPINEPHRINE 8 MG/D5%-WATER 250 ML IV PRN ×3 (05:50→21:10)
[2022-01-27 05:51] LABS: BASOPHILS % (AUTO) 0.1 % (0.0-2.0); EOSINOPHILS % (AUTO) 0.4 % (1.0-6.0); HEMATOCRIT 24.5 % (41-53); HEMOGLOBIN 8.1 g/dL (13.5-17.5); LYMPHOCYTES # (AUTO) 0.7 K/uL (1.0-4.8); LYMPHOCYTES % (AUTO) 4.5 % (22.0-44.0); MEAN CORPUSCULAR HEMOGLOBIN 29.7 pg (26.0-34.0); MEAN CORPUSCULAR HGB CONC 32.9 G/dL (31.0-37.0); MEAN CORPUSCULAR VOLUME 90 fL (80-100); MONOCYTES # (AUTO) 0.3 K/uL (0.1-1.0); MONOCYTES % (AUTO) 1.8 % (2.0-9.0); NEUTROPHILS # (AUTO) 15.5 K/uL (1.8-7.7); RED BLOOD CELL COUNT(AUTO) 2.72 MIL/uL (4.50-5.90); RED CELL DISTRIBUTION WIDTH 15.7 % (11.5-14.5)
[2022-01-27 06:01] LABS: NEUTROPHILS % (AUTO) 93.2 % (40.0-70.0)
[2022-01-27 06:05] LABS: ALBUMIN 3.3 g/dL (3.4-5.0); BILIRUBIN,TOTAL 5.9 mg/dL (0.1-1.0); C-REACTIVE PROTEIN QUANT 8.91 mg/dL (0.00-0.30); CALCIUM, TOTAL 7.9 mg/dL (8.8-10.5); CREATININE 1.87 mg/dL (0.60-1.30); POTASSIUM 4.9 mmol/L (3.5-5.1); TOTAL PROTEIN, SERUM 5.3 g/dL (6.4-8.2)
[2022-01-27] MEDS: VASOPRESSIN 40 UNITS in DEXTROSE 5%-WATER 98 ML IV PRN (06:29)
[2022-01-27 06:31] LABS: PLATELET COUNT (AUTO) 56 K/uL (150-450)
[2022-01-27] MEDS: COLCHICINE 0.6 MG TABLET PO SCH (06:55)
[2022-01-27 07:21] LABS: GLUCOSE,POINT OF CARE 124 MG/DL (70-110)
[2022-01-27 07:25] LABS: MAGNESIUM 1.9 mg/dL (1.80-2.40); PHOSPHORUS 6.5 mg/dL (2.5-4.9)
[2022-01-27 08:00] VITALS: BP 101/58
[2022-01-27] MEDS: PANTOPRAZOLE SODIUM 40 MG/VIAL IVP SCH (08:59)
[2022-01-27] MEDS: MONTELUKAST SODIUM 10 MG TABLET PO SCH (08:59)
[2022-01-27] MEDS: ETHYL ALCOHOL 62% ANTISEPTIC NASAL SANITIZER 0.6 ML AMPUL NASAL SCH ×2 (08:59→21:03)
[2022-01-27] MEDS: EZETIMIBE 10 MG TABLET PO SCH (08:59)
[2022-01-27] MEDS: METOPROLOL TARTRATE 25 MG TABLET PO SCH ×2 (09:00→21:00)
[2022-01-27] MEDS: DOCUSATE SODIUM 100 MG CAPSULE PO SCH ×2 (09:00→21:00)
[2022-01-27 12:00] VITALS: BP 92/51
[2022-01-27] MEDS ORDERED: SODIUM CHLORIDE 0.9% 250 ML IV ONE (12:51)
[2022-01-27] MEDS: DAPTOMYCIN 500 MG in SODIUM CHLORIDE 0.9% 50 ML IV SCH (12:53)
[2022-01-27] MEDS: FLUCONAZOLE 200 MG/NACL ISOOSM 100 ML IV SCH (12:57)
[2022-01-27] MEDS ORDERED: CASPOFUNGIN ACETATE 35 MG in SODIUM CHLORIDE 0.9% 100 ML IV SCH (15:30)
[2022-01-27 16:00] VITALS: BP 89/46
[2022-01-27 18:21] LABS: GLUCOSE,POINT OF CARE 135 MG/DL (70-110)
[2022-01-27 19:27] LABS: GLUCOSE,POINT OF CARE 140 MG/DL (70-110)
[2022-01-27 20:00] VITALS: BP 95/59
[2022-01-27] MEDS: SIMVASTATIN 20 MG TABLET PO SCH (21:07)
[2022-01-27] MEDS: FINASTERIDE 5 MG TABLET PO SCH (21:07)
[2022-01-28] VITALS: BP 88/48
[2022-01-28] MEDS: MEROPENEM 1 GM in SODIUM CHLORIDE 0.9% 100 ML IV SCH (00:20)
[2022-01-28] MEDS: VASOPRESSIN 40 UNITS in DEXTROSE 5%-WATER 98 ML IV PRN (01:00)
[2022-01-28 01:16] LABS: GLUCOSE,POINT OF CARE 94 MG/DL (70-110)
[2022-01-28] MEDS: DOPamine 400MG/D5W[STANDARD] 250 ML IV PRN ×2 (03:24→06:43)
[2022-01-28 04:00] VITALS: BP 88/42
[2022-01-28] MEDS: ALBUMIN HUMAN 25%-12.5GM/50ML 50 ML IV SCH (04:16)
[2022-01-28] MEDS: NOREPINEPHRINE 8 MG/D5%-WATER 250 ML IV PRN (04:16)
[2022-01-28] MEDS: EPINEPHrine 2 MG in DEXTROSE 5%-WATER 248 ML IV PRN ×4 (04:17→08:24)
[2022-01-28 05:30] LABS: BASOPHILS % (AUTO) 0.6 % (0.0-2.0); EOSINOPHILS % (AUTO) 0.3 % (1.0-6.0); HEMATOCRIT 24.3 % (41-53); HEMOGLOBIN 7.7 g/dL (13.5-17.5); LYMPHOCYTES % (AUTO) 13.4 % (22.0-44.0); MEAN CORPUSCULAR HEMOGLOBIN 29.6 pg (26.0-34.0); MEAN CORPUSCULAR HGB CONC 31.5 G/dL (31.0-37.0); MEAN CORPUSCULAR VOLUME 94 fL (80-100); MONOCYTES # (AUTO) 0.3 K/uL (0.1-1.0); MONOCYTES % (AUTO) 2.1 % (2.0-9.0); NEUTROPHILS # (AUTO) 12.7 K/uL (1.8-7.7); NEUTROPHILS % (AUTO) 83.6 % (40.0-70.0); PLATELET COUNT (AUTO) 45 K/uL (150-450); RED BLOOD CELL COUNT(AUTO) 2.59 MIL/uL (4.50-5.90); RED CELL DISTRIBUTION WIDTH 16.7 % (11.5-14.5)
[2022-01-28 05:56] LABS: ALBUMIN 3.4 g/dL (3.4-5.0); BILIRUBIN,TOTAL 8.3 mg/dL (0.1-1.0); C-REACTIVE PROTEIN QUANT 9.19 mg/dL (0.00-0.30); CALCIUM, TOTAL 7.6 mg/dL (8.8-10.5); CREATININE 2.76 mg/dL (0.60-1.30); PHOSPHORUS 8.1 mg/dL (2.5-4.9); POTASSIUM 5.7 mmol/L (3.5-5.1); TOTAL PROTEIN, SERUM 5.3 g/dL (6.4-8.2)
[2022-01-28] MEDS: COLCHICINE 0.6 MG TABLET PO SCH (07:00)
[2022-01-28 08:24] VITALS: BP 86/52
[2022-01-28] MEDS ORDERED: SODIUM ZIRCONIUM CYCLOSILICATE 5 GM POWDER PACKET PO ONE (08:30)
[2022-01-28] MEDS: EZETIMIBE 10 MG TABLET PO SCH (09:00)
[2022-01-28] MEDS: PANTOPRAZOLE SODIUM 40 MG/VIAL IVP SCH (09:00)
[2022-01-28] MEDS: ETHYL ALCOHOL 62% ANTISEPTIC NASAL SANITIZER 0.6 ML AMPUL NASAL SCH (09:00)
[2022-01-28] MEDS ORDERED: MORPHINE SULFATE 4 MG/ML SYRINGE IVP ONE (09:30)
[2022-01-28] MEDS ORDERED: MORPHINE SULFATE 2 MG/ML SYRINGE IVP PRN ×2 (09:30→12:45)
[2022-01-28] MEDS: MONTELUKAST SODIUM 10 MG TABLET PO SCH (09:39)
[2022-01-28] MEDS: METOPROLOL TARTRATE 25 MG TABLET PO SCH (09:39)
[2022-01-28] MEDS: DOCUSATE SODIUM 100 MG CAPSULE PO SCH (09:42)
[2022-01-28] MEDS: MORPHINE SULFATE 2 MG/ML SYRINGE IVP PRN (10:41)
[2022-01-28 13:31] LABS: GLUCOSE,POINT OF CARE 130 MG/DL (70-110)
[2022-01-28 13:31] LABS: GLUCOSE,POINT OF CARE 72 MG/DL (70-110)
== END 2022-01-28 12:00 | DRG 870 ==
LOC: EMS 05:44 → ICU 17:15
PROVIDERS: ADMIT Internal Medicine; ATTEND Internal Medicine
PROC: 5A1955Z Respiratory Ventilation, Greater than 96 Consecutive Hours (ICD-10-PCS; principal; 2022-01-18)
PROC: 0BH17EZ Insertion of Endotracheal Airway into Trachea, Via Natural or Artificial Opening (ICD-10-PCS; 2022-01-18)
PROC: 30233N1 Transfusion of Nonautologous Red Blood Cells into Peripheral Vein, Percutaneous Approach (ICD-10-PCS; 2022-01-18)
PROC: 0DB68ZX Excision of Stomach, Via Natural or Artificial Opening Endoscopic, Diagnostic (ICD-10-PCS; 2022-01-19)
PROC: 5A09457 Assistance with Respiratory Ventilation, 24-96 Consecutive Hours, Continuous Positive Airway Pressure (ICD-10-PCS; 2022-01-22)
PROC: 0BH17EZ Insertion of Endotracheal Airway into Trachea, Via Natural or Artificial Opening (ICD-10-PCS; 2022-01-24)
PROC: 5A1945Z Respiratory Ventilation, 24-96 Consecutive Hours (ICD-10-PCS; 2022-01-24)
DX: A41.9 Sepsis, unspecified organism (principal); G93.41 Metabolic encephalopathy; J96.21 Acute and chronic respiratory failure with hypoxia; I50.43 Acute on chronic combined systolic (congestive) and diastolic (congestive) heart failure; J69.0 Pneumonitis due to inhalation of food and vomit; K72.00 Acute and subacute hepatic failure without coma; N17.0 Acute kidney failure with tubular necrosis; R65.21 Severe sepsis with septic shock; K29.71 Gastritis, unspecified, with bleeding; D68.9 Coagulation defect, unspecified; E44.0 Moderate protein-calorie malnutrition; E87.0 Hyperosmolality and hypernatremia; E87.2 Acidosis; I13.0 Hypertensive heart and chronic kidney disease with heart failure and stage 1 through stage 4 chronic kidney disease, or unspecified chronic kidney disease; E87.1 Hypo-osmolality and hyponatremia; N39.0 Urinary tract infection, site not specified; R18.8 Other ascites; T83.518A Infection and inflammatory reaction due to other urinary catheter, initial encounter; D64.9 Anemia, unspecified; D69.6 Thrombocytopenia, unspecified; E11.22 Type 2 diabetes mellitus with diabetic chronic kidney disease; E83.39 Other disorders of phosphorus metabolism; I48.0 Paroxysmal atrial fibrillation; E87.5 Hyperkalemia; E87.6 Hypokalemia; K40.20 Bilateral inguinal hernia, without obstruction or gangrene, not specified as recurrent; K42.9 Umbilical hernia without obstruction or gangrene; N18.9 Chronic kidney disease, unspecified; M10.9 Gout, unspecified; N40.0 Benign prostatic hyperplasia without lower urinary tract symptoms; N28.1 Cyst of kidney, acquired; Y84.6 Urinary catheterization as the cause of abnormal reaction of the patient, or of later complication, without mention of misadventure at the time of the procedure; Y95 Nosocomial condition; Z20.822 Contact with and (suspected) exposure to COVID-19; Z66 Do not resuscitate; E78.00 Pure hypercholesterolemia, unspecified; Z99.81 Dependence on supplemental oxygen; Z87.891 Personal history of nicotine dependence; Z87.01 Personal history of pneumonia (recurrent); Z82.49 Family history of ischemic heart disease and other diseases of the circulatory system; Y92.89 Other specified places as the place of occurrence of the external cause; Z79.899 Other long term (current) drug therapy; Z88.8 Allergy status to other drugs, medicaments and biological substances; Z68.24 Body mass index [BMI] 24.0-24.9, adult; Z98.42 Cataract extraction status, left eye
CPT/HCPCS: 31500; 36556; 36600; 51702; 70450; 71045; 71250; 72192; 74150; 76700; 80048; 80053; 80202; 81001; 81002; 82271; 82550; 82805; 82962; 83605; 83735; 83880; 84100; 84132; 84145; 84484; 85025; 85379; 85610; 85730; 86140; 86850; 86900; 86901; 86923; 87040; 87070; 87081; 87086; 87205; 87449; 87804; 87899; 88305; 88312; 88313; 93005; 93970; 94002; 94003; 94660; 94667; 94668; 99291; C9113; G0238; G0378; J0131; J0171; J0282; J0637; J0878; J1265; J1450; J1940; J2185; J2270; J2370; J2405; J2543; J2704; J3370; J3480; J3490; J7030; J7040; J7050; J7060; J7120; P9016; P9047; Q9967; 36415-L1; 36415-TC; 87077; X7700